=== PATIENT | female | born 1955 | race Caucasian/White ===

== ENCOUNTER 2019-12-29 03:22 | Outpatient (CLI) | payer MEDICARE, SELFPAY ==
[2019-12-29 20:03] LABS: SARS-CoV-2 RNA PCR Negative
== END 2019-12-29 03:23 | disposition home or self-care (01) ==
LOC: ANHCOVIDDT 03:22
PROVIDERS: PCP Family Medicine; Visit Provider Internal Medicine Gastroenterology
DX: Z01.812 Encounter for preprocedural laboratory examination (principal); Z20.828 Contact with and (suspected) exposure to other viral communicable diseases
CPT/HCPCS: 87635; C9803; U0003

== ENCOUNTER 2019-12-31 02:06 | Day surgery (SDC) | payer MEDICARE, SELFPAY ==
[2019-12-24 13:19] VITALS: BMI 22.2
[2019-12-31 07:47] VITALS: BP 142/70; PULSE 84; RESP 18; TEMP 36.9; O2SAT 100; BMI 22.2
[2019-12-31] MEDS: LACTATED RINGERS 1,000 ML 150 ML IV CONT (08:00)
--- NOTE | 2019-12-31 08:16 | WPDANESEPPF ---
Anes - Initial Pre Proc Eval Procedure: Operation Date: 12/31/19 08:30 Proposed Procedures p Esophagogastroduodenoscopy - Yoav Meraz DO Date/Time: 12/31/19 08:16 Surgeon: Yoav Meraz DO Pre Op Diagnosis: Upper Abdominal Pain Patient Data Age: 64 Gender: F Height: 5 ft 3 in Weight: 57 kg Last Vital Signs Temp 98.5 F 12/31/19 07:47 Pulse 84 12/31/19 07:47 Resp 18 12/31/19 07:47 BP 142/70 H 12/31/19 07:47 Pulse Ox 100 12/31/19 07:47 Allergies Allergy/AdvReac Type Severity Reaction Status Date / Time propoxyphene AdvReac Mild CAUSES Verified 12/31/19 07:44 UPSET STOMACH AND VOMITING Home Medications Medication Instructions Recorded Confirmed Type Vitamin D3 Complete 1 cap PO DAILY 12/24/19 12/24/19 History alprazolam 1 mg PO TID PRN 12/24/19 12/24/19 History ferrous sulfate 325 mg/kg PO DAILY 12/24/19 12/24/19 History lactobacillus combination no.8 1 cell PO DAILY 12/24/19 12/24/19 History [Adult Probiotic] levothyroxine 50 mcg PO DAILY 12/24/19 12/24/19 History pantoprazole 40 mg PO DAILY 12/24/19 12/24/19 History paroxetine HCl 40 mg PO DAILY 12/24/19 12/24/19 History vitamin B complex [B 1 tablet PO DAILY 12/24/19 12/24/19 History Complex-Vitamin B12] Patient hx anesthesia problems: none Family hx anesthesia problems: none PMFSH Past Medical History Medical History (Updated 12/31/19 @ 08:16 by Bj Oocnnor MD) Anxiety Depression Hypothyroid Family History Family History (Updated 11/04/15 @ 23:21 by DOCTOR UNKNOWN) Mother Patient's mother is in good health Social History Social History Smoking packs per day: 1 Smoking cigarettes per day: 20.0 Years smoked: 20 Smoking pack-years: 20.00 Smoking status: Former smoker Additional smoking assessment comments: quit in 1982 Alcohol intake: never Living arrangements: alone Gender identity (if verbalized by the patient): Female Spiritual care concerns: No Anes - Eval Final PreProcedure Day of Procedure 12/31/19 08:16 Patient weight: normal Heart: regular rate and rhythm Lungs: clear to auscultation Airway: Mallampati scale class II Neurological: alert and oriented Last oral intake: >/= 8 hours ASA classification: II Emergent: no Anesthetic plan: proceed Anesthesia type and monitoring: general GIVS and standard monitoring Informed Consent: The patient's anesthetic plan and its attendant risks and benefits were discussed with the patient/family/POA. Questions were solicited and answers provided to the satisfaction of the patient/family/POA.
--- NOTE | 2019-12-31 08:41 | PM.IMHP ---
H&P: HPI History of Present Illness Date/Time: 12/31/19 08:41 Chief complaint: Upper Abdominal Pain Narrative: Reason for visit EGD. Impression: This very pleasant lady with a history of abdominal pain. Underlying peptic ulcer disease should be excluded. She does have history of gastric ulcer disease. She does have history of reflux disease and has dysphagia to both solids and liquids. This may be secondary lying regular stricture. Esophageal dysmotility should be excluded. Anxiety. Reflux disease. Hypothyroidism. History of gastric ulcer disease. History: This very pleasant lady's being evaluated for diffuse abdominal pain. She has epigastric and diffuse abdominal pain. It always seems to hurt. Eating exacerbates the pain. She reports nausea , but no vomiting. She has dysphagia to both solids and liquids. she does have chronic constipation. Hematochezia, melena acholic stools overnight. She has a history of colon polyp in the questionable colon ulcer. Patient also reports a history of gastric ulcer disease. She is on pantoprazole twice a day without any improvement. The pain does awaken her at night and prevents her from sleeping. This very pleasant lady has chest pain atypical in nature. She has chronic back pain. She has very significant anxiety. Physical examination: General: very pleasant patient in no acute distress. HEENT: Head was normocephalic sclerae is clear mouth without masses neck was supple. Heart: Rate rhythm regular without S3 or S4. Lungs: CTA. Abdomen: Soft with no guarding or rigidity. Bowel sounds were active. Neurologic: Cranial nerves 2 through 12 intact. No focal defects. No clonus. Musculoskeletal system: Revealed no joint tenderness or swelling no muscle atrophy. Extremities: Reveal no significant edema. Skin: Warm and dry with normal turgor. Mental status: intact. Patient is alert and oriented. Review of Systems Review of Systems: All systems reviewed & are unremarkable except as noted in HPI and below [facility] Past Medical History Medical History (Updated 12/31/19 @ 08:41 by Yoav Meraz DO) Anxiety Cervical vertebral fusion Depression Hypothyroid Surgical History Surgical History (Updated 12/31/19 @ 08:41 by Yoav Meraz DO) History of esophagogastroduodenoscopy (EGD) History of hip surgery Hx of colonoscopy S/P rotator cuff repair Family History Family History (Updated 11/04/15 @ 23:21 by DOCTOR UNKNOWN) Mother Patient's mother is in good health Social History Social History Smoking packs per day: 1 Smoking cigarettes per day: 20.0 Years smoked: 20 Smoking pack-years: 20.00 Smoking status: Former smoker Additional smoking assessment comments: quit in 1982 Alcohol intake: never Living arrangements: alone Gender identity (if verbalized by the patient): Female Spiritual care concerns: No Meds Home Medications and Allergies Home Medications Medication Instructions Recorded Confirmed Type Vitamin D3 Complete 1 cap PO DAILY 12/24/19 12/24/19 History alprazolam 1 mg PO TID PRN 12/24/19 12/24/19 History ferrous sulfate 325 mg/kg PO DAILY 12/24/19 12/24/19 History lactobacillus combination no.8 1 cell PO DAILY 12/24/19 12/24/19 History [Adult Probiotic] levothyroxine 50 mcg PO DAILY 12/24/19 12/24/19 History pantoprazole 40 mg PO DAILY 12/24/19 12/24/19 History paroxetine HCl 40 mg PO DAILY 12/24/19 12/24/19 History vitamin B complex [B 1 tablet PO DAILY 12/24/19 12/24/19 History Complex-Vitamin B12] Allergies Allergy/AdvReac Type Severity Reaction Status Date / Time propoxyphene AdvReac Mild CAUSES Verified 12/31/19 07:44 UPSET STOMACH AND VOMITING Vital Signs Vital Signs - 24 hr 12/31/19 07:47 Temperature 36.9 C Pulse Rate 84 Respiratory Rate 18 Blood Pressure 142/70 H Pulse Oximetry 100
[2019-12-31 09:15] VITALS: BP 135/84; PULSE 89; RESP 25; O2SAT 100
[2019-12-31 09:25] VITALS: BP 155/86; PULSE 88; RESP 19; O2SAT 100
[2019-12-31 09:35] VITALS: BP 127/87; PULSE 72; RESP 27; O2SAT 99
== END 2019-12-31 09:44 | disposition home or self-care (01) ==
PROVIDERS: PCP Family Medicine; Visit Provider Internal Medicine Gastroenterology
PROC: 0DJ08ZZ Inspection of Upper Intestinal Tract, Via Natural or Artificial Opening Endoscopic (ICD-10-PCS; CPT 43235; principal; 2019-12-31 08:30)
DX: R10.10 Upper abdominal pain, unspecified (principal); R11.0 Nausea; K44.9 Diaphragmatic hernia without obstruction or gangrene; R13.10 Dysphagia, unspecified; K21.9 Gastro-esophageal reflux disease without esophagitis; Z87.11 Personal history of peptic ulcer disease; E03.9 Hypothyroidism, unspecified; F41.8 Other specified anxiety disorders; Z98.1 Arthrodesis status; Z87.891 Personal history of nicotine dependence
CPT/HCPCS: 43239; 43450; 87081; 88305; J2704; J7120

== ENCOUNTER 2020-02-11 07:59 | Outpatient (CLI) | payer MEDICARE, SELFPAY ==
--- NOTE | ~2020-02-11 | NM_ITS ---
EXAM: NM gastric emptying study DATE: 02/11/2020 12:35 INDICATION: Gastroparesis. Upper abdominal pain. TECHNIQUE: A gastric emptying study was performed using the methodology of Amanda GREGORY, et al. J Nucl Med 2007; 48:568-572. The patient was given a meal consisting of 2 scrambled eggs labeled with 1 mCi Tc-99m sulfur colloid, 2 slices of toast, two packages of jam, and approximately 120 mL of water. Si multaneous anterior and posterior 1-min images of the abdomen were obtained with the patient supine a t multiple time points over a total period of 4 hours. The geometric mean of anterior and posterior v iews was determined, and the percentage retention was calculated for each time point. COMPARISON: None. FINDINGS: Gastric retention of the radiotracer-labeled meal was 64%, 36%, and 4% at the 1-hour, 2-hour, and 4-h our time points, respectively. With this technique, apparent rapid gastric emptying is suggested by < 30% gastric retention at 1 hour. Delayed gastric emptying is defined by gastric retention of >90% at 1 hour, >60% retention at 2 hours, or >10% retention at 4 hours. IMPRESSION: 1. Normal gastric emptying. Reviewed, dictated and finalized at location A. O MASK PROCESSOR IMPRESSION: 1. Normal gastric emptying.
--- NOTE | ~2020-02-11 | CT_ITS ---
EXAMINATION: CT abdomen pelvis wo con EXAM DATE: 02/11/2020 12:35 INDICATION: Pain of upper abdomen . TECHNIQUE: Spiral CT of the abdomen and pelvis was performed without contrast. Axial, coronal and s agittal images were reviewed. The dose-length product (DLP) for this examination was 204.39 mGy-cm. The exposure was tailored according to patient size (auto mA exposure control), and iterative recons truction (ASIR) was used as additional dose reduction technique. Comparison is made to prior examinat ion from 08/04/2018. FINDINGS: The liver, spleen, adrenal glands and pancreas are unremarkable. Gallbladder is unremarkab le. No biliary obstruction. There is no nephrolithiasis or hydronephrosis. The uterus is unremark able. The bladder is unremarkable. There is no retroperitoneal or pelvic lymphadenopathy. The appendix is normal. The stomach and small bowel are unremarkable. There is moderate amount of c olonic stool. No free intraperitoneal gas. The heart is normal in size. There are no pericardial or pleural effusions. The lung bases are unremarkable. Mild thoracolumbar dextrocurvature. IMPRESSION: No acute intra-abdominal findings. Reviewed, dictated and finalized at location B. RATING MACHINE TENDER
== END 2020-02-11 08:00 | disposition home or self-care (01) ==
PROVIDERS: PCP Family Medicine; Visit Provider Internal Medicine Gastroenterology
DX: R10.10 Upper abdominal pain, unspecified (principal)
CPT/HCPCS: 74176; 78264; A9541

== ENCOUNTER 2020-05-12 11:22 | Emergency (ER) | payer MEDICARE, SELFPAY ==
--- NOTE | ~2020-05-12 | CT_ITS ---
EXAMINATION: CT abdomen pelvis w con DATE: 05/12/2020 14:26 INDICATION: Abdominal pain. Blood in stool. TECHNIQUE: Computed tomography (CT) of the abdomen and pelvis was performed with 100 mL Omnipaque 350 intravenous contrast. Automated exposure control and iterative reconstruction technique were employe d. The dose-length product was 245.61 mGy-cm. COMPARISON: CT abdomen and pelvis 02/11/2020 FINDINGS: The visualized portions of the lung bases demonstrate mild atelectasis. No pleural effusion . The heart size is normal. No pericardial effusion. There are bilateral breast implants. There is a 6 mm cyst in the liver. The gallbladder, spleen, pancreas, and adrenal glands are normal. There are c ysts in the kidneys measuring up to 12 mm on the left. There are no dilated loops of bowel. The appen genevieve is normal. There is wall thickening of the splenic flexure of the colon. There is mild stenosis o f celiac axis. There is no significant stenosis of superior mesenteric artery or inferior mesenteric artery. There are no pathologically enlarged lymph nodes. There is no free intraperitoneal fluid. The re is mild lumbar spondylosis. IMPRESSION: 1. Wall thickening of the splenic flexure of the colon, consistent with colitis. The differential benigno gnosis includes infectious colitis and ischemic colitis (such as from a hypotensive episode). Reviewed, dictated and finalized at location A. R HOUSE CONTROL ROOM OPERATOR IMPRESSION: 1. Wall thickening of the splenic flexure of the colon, consistent with colitis . The differential diagnosis includes infectious colitis and ischemic colitis ( such as from a hypotensive episode).
[2020-05-12 11:41] VITALS: BP 127/67; PULSE 97; RESP 18; TEMP 36.9; O2SAT 97
[2020-05-12 11:56] LABS: Basophils Percent Auto 0.4 % (0.2-1.2); Eosinophils Absolute Auto 0.1 K/mm3 (0-0.3); Eosinophils Percent Auto 1.2 % (0-4.4); Hematocrit 43.5 % (37.0-47.0); Immature Granulocyte Absolute 0.01 K/mm3 (0.00-0.031); Immature Granulocyte Percent A 0.1 % (0-0.5); Lymphocytes Absolute Auto 2.05 K/mm3 (0.9-3.2); Lymphocytes Percent Auto 28.3 % (18.3-44.2); Mean Corpuscular HGB Conc 32.2 g/dl (32-36); Mean Corpuscular Hemoglobin 30.4 pg (26-34); Mean Corpuscular Volume 94.4 fl (80-100); Mean Platelet Volume 8.7 fl (7.4-10.4); Monocytes Absolute Auto 0.6 K/mm3 (0.1-0.6); Neutrophils Absolute Auto 4.5 K/mm3 (1.3-6.7); Platelet Count Result 323 k/mm3 (150-375); Red Blood Count 4.61 M/mm3 (4.2-5.4); Red Cell Distribution Width 12.1 % (11.5-14.5); White Blood Count 7.3 K/mm3 (4.5-10.0)
[2020-05-12 12:10] LABS: Alanine Aminotransferase 22 U/L (4-35); Albumin Level 4.2 g/dL (3.5-5.1); Alkaline Phosphatase 144 U/L (38-126); Anion Gap 4 mmol/L (8-16); Aspartate Amino Transferase 28 U/L (14-36); Bilirubin,Total 0.8 mg/dL (0.2-1.3); Blood Urea Nitrogen 9 mg/dL (7-17); Calcium 9.3 mg/dL (8.4-10.2); Carbon Dioxide 30 mmol/L (22-30); Chloride 100 mmol/L (98-107); Estimated CRCL calculation 45 ml/min; Estimated Glomerular Filt Rate > 60; Glucose 88 mg/dL (65-105); Lipase 42 U/L (23-300); Potassium 3.6 mmol/L (3.4-5.0); Sodium 134 mmol/L (137-145)
[2020-05-12 12:56] VITALS: BP 136/68; PULSE 74; RESP 16; O2SAT 100
[2020-05-12 13:06] LABS: Add Urine Microscopic? YES; Appearance Urine Clear (Clear); Bilirubin Urine Negative (Negative); Blood Urine Negative (Negative); Color Urine Yellow (Yellow); Glucose Urine UA Negative (Negative); Ketones Urine 1+ mg/dL (Negative); Leukocyte Esterase Ur Negative LEU/UL (Negative); Mucus Urine Rare /lpf; Nitrate Urine Negative (Negative); Protein Urine 1+ mg/dL (Negative); RBC Urine 0-2 /hpf (0-2); Specific Grav Ur 1.032 (1.001-1.035); Squamous Epithelial Cell Urine Few /hpf (Few); Urobilinogen Urine Negative mg/dL (<2.0); WBC Urine 0-3 /hpf
--- NOTE | 2020-05-12 13:38 | ED.HA ---
HPI - Headache General Chief Complaint: Headache Stated Complaint: rectal bleeding,GREGORY, ABD PAIN Time Seen by Provider: 05/12/20 13:04 Source: patient Mode of arrival: ambulatory Limitations: no limitations History of Present Illness HPI Narrative: A 64-year-old female comes into the emergency department with complaints of a headache. Patient states that she has had this headache for a while. She notes that this is chronic in nature for her and unchanged from previous. Patient had an accident at work and as a result had to have multiple neck surgeries. She stated that the surgery was relieved her pain for a while but eventually did come back and seems to be getting worse. She has been taking Tylenol at home with no relief. Patient states she was instructed to stay away from NSAIDs as she has had a history of bleeding ulcers in the past. Patient second main complaint includes abdominal pain. She does note an episode of bloody stools on Saturday. She notes that this had resolved by Saturday morning. Patient denies any further bloody stools but does endorse generalized abdominal pain. Related Data Home Medications Medication Instructions Recorded Confirmed Vitamin D3 Complete 1 cap PO DAILY 12/24/19 05/12/20 alprazolam 1 mg PO TID PRN 12/24/19 05/12/20 ferrous sulfate 325 mg/kg PO DAILY 12/24/19 05/12/20 lactobacillus combination no.8 1 cell PO DAILY 12/24/19 05/12/20 [Adult Probiotic] levothyroxine 50 mcg PO DAILY 12/24/19 05/12/20 pantoprazole 40 mg PO DAILY 12/24/19 05/12/20 paroxetine HCl 40 mg PO DAILY 12/24/19 05/12/20 vitamin B complex [B 1 tablet PO DAILY 12/24/19 05/12/20 Complex-Vitamin B12] Allergies Allergy/AdvReac Type Severity Reaction Status Date / Time propoxyphene AdvReac Mild CAUSES Verified 05/12/20 13:53 UPSET STOMACH AND VOMITING Review of Systems Review of Systems: Narrative: CONSTITUTIONAL: Denies fever, chills, or sweats. EYES: Denies visual changes, redness, or discharge. ENT: Denies rhinorrhea, congestion, sore throat, or otalgia. CARDIOVASCULAR: Denies chest pain, palpitations, or edema. RESPIRATORY: Denies cough or dyspnea. GASTROINTESTINAL: Endorses nausea associated with a headache, generalized abdominal pain and an episode of bloody stools 2 days ago. GENITOURINARY: Denies dysuria or hematuria. SKIN: Denies rash or itching. MUSCULOSKELETAL: Denies back pain, joint pain, or myalgia. NEUROLOGIC: Denies numbness, dizziness, or weakness. Endorses headache PSYCHIATRIC: Denies anxiety or depression. [facility] Past Medical History Medical History Anxiety Cervical vertebral fusion Depression Hypothyroid Surgical History Surgical History History of esophagogastroduodenoscopy (EGD) History of hip surgery Hx of colonoscopy S/P rotator cuff repair Family History Family History Mother Patient's mother is in good health Social History Social History Smoking packs per day: 1 Smoking cigarettes per day: 20.0 Years smoked: 20 Smoking pack-years: 20.00 Smoking status: Former smoker Additional smoking assessment comments: quit in 1982 Alcohol intake: never Gender identity (if verbalized by the patient): Female Spiritual care concerns: No Exam Narrative: Exam Narrative: GENERAL: Well-appearing, well-nourished, and in no acute distress. HEAD: Normocephalic, atraumatic. EYES: PERRLA and EOMI. ENT: Nares clear, no rhinorrhea or epistaxis. Mucous membranes moist. NECK: Supple. No adenopathy or masses. No carotid bruits or JVD CHEST: Clear to auscultation. No respiratory distress. No wheezes rales or rhonchi HEART: Regular rate and rhythm. No murmur heard. Normal peripheral pulses. ABDOMEN: Soft but with generalized tenderness to palpation;
[2020-05-12] MEDS: ONDANSETRON INJ 4 MG/2 ML VIAL IV PUSH (13:57)
[2020-05-12] MEDS: diphenhydrAMINE HCl INJ 50 MG/ML VIAL 25 MG IV PUSH (13:58)
[2020-05-12] MEDS: KETOROLAC 15 MG/ML VIAL (*BKC) IV PUSH (14:00)
[2020-05-12 14:01] VITALS: BP 126/91; PULSE 77; RESP 14; O2SAT 98
[2020-05-12] MEDS: PROCHLORPERAZINE EDISYLATE 10 MG/2 ML VIAL 5 MG IV PUSH (14:01)
[2020-05-12 15:20] VITALS: BP 104/54; PULSE 78; RESP 10; O2SAT 96
--- NOTE | 2020-05-16 14:11 | PC.NURSE ---
pt lost rx in the wind . this rn spoke with everton to give verbal script for the discharge medication augment 875mg #20 with 0 RF, Clement kendrick
== END 2020-05-12 15:21 | disposition home or self-care (01) ==
PROVIDERS: Emergency Medicine; Emergency Provider Emergency Medicine; PCP Family Medicine
DX: G44.319 Acute post-traumatic headache, not intractable (principal); K52.9 Noninfective gastroenteritis and colitis, unspecified; F41.9 Anxiety disorder, unspecified; E03.9 Hypothyroidism, unspecified; F32.9 Major depressive disorder, single episode, unspecified; Z87.891 Personal history of nicotine dependence
CPT/HCPCS: 36415; 74177; 80053; 81001; 83690; 85025; 86850; 86900; 86901; 96374; 96375; 99284; J0780; J1200; J1885; J2405; Q9967

== ENCOUNTER 2020-06-15 15:38 | Outpatient (CLI) | payer MEDICARE, SELFPAY ==
--- NOTE | ~2020-06-15 | MR_ITS ---
EXAMINATION: MR brain/brain stem wo/w con DATE: 06/15/2020 16:43 INDICATION: Migraine headache without aura. TECHNIQUE: Magnetic resonance imaging (MRI) of the brain and brainstem was performed without and with 10 mL MultiHance intravenous contrast. Sequences included sagittal and axial T1-weighted FSE, axial diffusion-weighted FS EPI, axial T2*-weighted GRE, axial T2-weighted FLAIR Propeller, and axial T2-we ighted Propeller. Postcontrast sequences included axial and coronal T1-weighted FSE. Apparent diffusi on coefficient (ADC) maps were created. COMPARISON: Head CT 02/09/2008 FINDINGS: There are scattered areas of nonspecific increased T2-weighted signal intensity in the cere bral white matter, which is within normal limits for the patient's age. There is no intracranial hemo rrhage, acute infarction, or abnormal intracranial mass lesion. The ventricles are normal in size. Th e paranasal sinuses are clear. The orbits are normal. The mastoid air cells are normal. IMPRESSION: 1. Normal brain. Reviewed, dictated and finalized at location A. ERCIAL MARKETING SPECIALIST IMPRESSION: 1. Normal brain.
[2020-06-15 16:27] LABS: Estimated Glomerular Filt Rate > 60
== END 2020-06-15 15:39 | disposition home or self-care (01) ==
PROVIDERS: PCP Family Medicine; Visit Provider Family Medicine
DX: G43.909 Migraine, unspecified, not intractable, without status migrainosus (principal)
CPT/HCPCS: 70553; A9577

== ENCOUNTER 2020-07-08 08:54 | Outpatient (CLI) | payer MEDICARE, SELFPAY ==
--- NOTE | ~2020-07-08 | DEXA_ITS ---
Bone Density Report Name: Ngozi Tyler Age: 64 Sex: Female Ethnicity: White Date of : 1955 Indication: osteopenia; postmenopausal Referring Provider: NATHAN, YANDEL Villegas Study: Bone densitometry was performed. Exam Date: July 08, 2020 Accession number: [id number] Bone Density: Region BMD T-score Z-score Classification AP Spine (L1-L4) 0.717 -3.0 -1.2 Osteoporosis Femoral Neck (Left) 0.633 -1.9 -0.4 Osteopenia Total Hip (Left) 0.720 -1.8 -0.6 Osteopenia Total Hip Bilateral Avg 0.709 -1.9 -0.7 Osteopenia Femoral Neck (Right) 0.579 -2.4 -0.9 Osteopenia Total Hip (Right) 0.696 -2.0 -0.8 Osteopenia World Health Organization criteria for BMD impression classify patients as: Normal (T-score at or above -1.0), Osteopenia (T-score between -1.0 and -2.5), or Osteoporosis (T-score at or below -2.5). 10-year Fracture Risk: FRAX not reported because: Some T-score for Spine Total or Hip Total or Femoral Neck at or below -2.5 Previous Exams: Region Exam Age BMD T-score BMD Change BMD Change Date g/cm2 vs Baseline vs Previous AP Spine(L1-L4) 07/08/2020 64 0.717 -3.0 -0.098(-12.1%) -0.098(-12.1%) 04/21/2008 52 0.815 -2.1 Total Hip(Left) 07/08/2020 64 0.720 -1.8 -0.020(-2.7%)# -0.020(-2.7%)# 04/21/2008 52 0.740 -1.7 Total Hip(Right) 07/08/2020 64 0.696 -2.0 -0.030(-4.1%)# -0.030(-4.1%)# 04/21/2008 52 0.725 -1.8 *Denotes significance at 95% confidence level, LSC for AP Spine = 0.022 g/cm2, LSC for Total Hip = 0.027 g/cm2 Clinical Information Provided by Patient: Has used the following medications: Vitamin D Patient maximum height was 63.5 Menopause Age: 46 Drinks caffeinated beverages Onset of menses at age 11 Number of children 2 Impression: The patient has osteoporosis, based on the Total Spine T-score. No significant bone loss was observed. Discussion: INCREASED RISK OF FRACTURE. BONE DENSITY IS UNDESIRABLY LOW AT ONE OR MORE SKELETAL SITES, CONSISTENT WITH POSTMENOPAUSAL OSTEOPOROSIS. This patient's lowest T-score meets the World Health Organization's (WHO) criteria for osteoporosis at one or more sites (T-score -2.5 or below). In untreated patients, the risk of osteoporotic fracture increases approximately two-fold for each 1.0 SD decrease in T-score. Low bone density is not the only risk factor for fracture; also consider factors such as patient's age, frailty or poor health, risk of falling, risk of injury, previous osteoporotic fract
== END 2020-07-08 08:55 | disposition home or self-care (01) ==
LOC: ANHIMG 08:58
PROVIDERS: PCP Family Medicine; Visit Provider Family Medicine
DX: Z78.0 Asymptomatic menopausal state (principal); M85.89 Other specified disorders of bone density and structure, multiple sites; M81.0 Age-related osteoporosis without current pathological fracture
CPT/HCPCS: 77080

== ENCOUNTER → 2021-06-17 00:24 | Outpatient (CLI) | payer MEDICARE, SELFPAY ==
[2021-06-17 12:26] LABS: SARS-CoV-2 RNA PCR Negative
== END ==
PROVIDERS: PCP Family Medicine; Visit Provider Internal Medicine Gastroenterology
DX: Z01.812 Encounter for preprocedural laboratory examination (principal); Z20.822 Contact with and (suspected) exposure to COVID-19
CPT/HCPCS: C9803; U0003; U0005

== ENCOUNTER 2021-06-20 00:50 | Day surgery (SDC) | payer MEDICARE, SELFPAY ==
[2021-06-16 13:01] VITALS: BMI 22.1
[2021-06-20 09:55] VITALS: BP 141/88; PULSE 81; RESP 16; TEMP 36.8; O2SAT 98
[2021-06-20] MEDS: LACTATED RINGERS 1,000 ML 150 ML IV CONT (09:58)
--- NOTE | 2021-06-20 10:36 | WPDHPUPDATE1 ---
History and Physical Update Update Date/Time: 06/20/21 10:36 History and Physical has been reviewed, including an updated exam of the patient. There are NO changes in the patient's condition. Risks, benefits, and alternatives have been discussed and questions answered. Patient agrees to proceed with procedure.
--- NOTE | 2021-06-20 10:37 | P.PNAN_ITS ---
Anes - Initial Pre Proc Eval Procedure: Operation Date: 06/20/21 11:00 Proposed Procedures p Esophagogastroduodenoscopy - Herber Villegas MD Date/Time: 06/20/21 10:37 Surgeon: Herber Villegas MD Pre Op Diagnosis: Epigastric pain Patient Data Age: 65 Gender: F Height: 1.6 m Weight: 57.4 kg Last Vital Signs Temp 98.2 F 06/20/21 09:55 Pulse 81 06/20/21 09:55 Resp 16 06/20/21 09:55 BP 141/88 H 06/20/21 09:55 Pulse Ox 98 06/20/21 09:55 Allergies Allergy/AdvReac Type Severity Reaction Status Date / Time No Known Drug Allergies Allergy Other Verified 06/20/21 09:53 Home Medications Medication Instructions Recorded Confirmed Type Vitamin D3 Complete 1 cap PO DAILY 12/24/19 06/20/21 History levothyroxine 50 mcg PO DAILY 12/24/19 06/20/21 History paroxetine HCl 40 mg PO DAILY 12/24/19 06/20/21 History vitamin B complex [B 1 tablet PO DAILY 12/24/19 06/20/21 History Complex-Vitamin B12] omeprazole 20 mg tablet,delayed 20 mg PO DAILY #30 tablet 06/15/21 06/20/21 Rx release alprazolam 1 mg PO TID PRN 06/20/21 06/20/21 History Patient hx anesthesia problems: none Family hx anesthesia problems: none Results Review: All pre-operative results and documents have been reviewed as part of the pre-operative evaluation. COUNTS INCLUDE 234 BEDS AT THE [facility] Past Medical History Medical History (Updated 06/15/21 @ 13:45 by Herber Villegas MD) Anxiety Cervical vertebral fusion Depression Dysphagia Epigastric pain Hypothyroid Nausea Surgical History Surgical History History of esophagogastroduodenoscopy (EGD) History of hip surgery Hx of colonoscopy S/P rotator cuff repair Family History Family History Mother Patient's mother is in good health Social History Social History (Reviewed 06/15/21 @ 13:21 by JOSELYN Degroot Smoking packs per day: 1 Smoking cigarettes per day: 20.0 Years smoked: 20 Smoking pack-years: 20.00 Smoking status: Never smoker Additional smoking assessment comments: quit in 1982 Alcohol intake: never Substance use: never Substance use type: does not use Living arrangements: alone Gender identity (if verbalized by the patient): Female Spiritual care concerns: No Anes - Eval Final PreProcedure Day of Procedure 06/20/21 10:37 Patient weight: normal Heart: regular rate and rhythm Lungs: clear to auscultation Airway: Mallampati scale class II Neurological: alert and oriented Last oral intake: >/= 8 hours ASA classification: II Emergent: no Anesthetic plan: proceed Anesthesia type and monitoring: general GIVS and standard monitoring Results Review: All pre-operative results and documents have been reviewed as part of the pre-operative evaluation. Informed Consent: The patient's anesthetic plan and its attendant risks and benefits were discussed with the patient/family/POA. Questions were solicited and answers provided to the satisfaction of the patient/family/POA.
[2021-06-20 10:51] VITALS: BP 131/76; PULSE 79; RESP 15; O2SAT 93
[2021-06-20 11:01] VITALS: BP 131/76; PULSE 79; RESP 15; O2SAT 93
[2021-06-20 11:11] VITALS: BP 156/97; PULSE 76; RESP 20; O2SAT 100
== END 2021-06-20 11:28 | disposition home or self-care (01) ==
PROVIDERS: PCP Family Medicine; Visit Provider Internal Medicine Gastroenterology
PROC: 0DJ08ZZ Inspection of Upper Intestinal Tract, Via Natural or Artificial Opening Endoscopic (ICD-10-PCS; CPT 43235; principal; 2021-06-20 11:00)
DX: K21.9 Gastro-esophageal reflux disease without esophagitis (principal); K44.9 Diaphragmatic hernia without obstruction or gangrene; K29.50 Unspecified chronic gastritis without bleeding; E03.9 Hypothyroidism, unspecified; F41.8 Other specified anxiety disorders; Z98.1 Arthrodesis status; Z87.891 Personal history of nicotine dependence
CPT/HCPCS: 43239; 88305; C9803; J2704; J7120; U0003; U0005

== ENCOUNTER 2021-12-19 09:03 | Outpatient (CLI) | payer MEDICARE, SELFPAY ==
--- NOTE | ~2021-12-19 | NM_ITS ---
EXAM: NM gastric emptying study DATE: 12/19/2021 13:41 INDICATION: Nausea. TECHNIQUE: A gastric emptying study was performed using the methodology of Amanda GREGORY, et al. J Nucl Med 2007; 48:568-572. The patient was given a meal consisting of 2 scrambled eggs labeled with 1.0 m Ci Tc-99m sulfur colloid, 2 slices of toast, two packages of jam, and approximately 120 mL of water. Simultaneous anterior and posterior 1-min images of the abdomen were obtained with the patient supine at multiple time points over a total period of 4 hours. The geometric mean of anterior and posterior views was determined, and the percentage retention was calculated for each time point. COMPARISON: CT abdomen and pelvis 05/12/2020, gastric emptying study 02/11/2020 FINDINGS: Gastric retention of the radiotracer-labeled meal was 62%, 39%, and 8% at the 1-hour, 2-ho ur, and 4-hour time points, respectively. With this technique, apparent rapid gastric emptying is sug gested by <30% gastric retention at 1 hour. Delayed gastric emptying is defined by gastric retention of >90% at 1 hour, >60% retention at 2 hours, or >10% retention at 4 hours. IMPRESSION: 1. Normal gastric emptying. Reviewed, dictated and finalized at location A. IMPRESSION: 1. Normal gastric emptying.
== END 2021-12-19 09:04 | disposition home or self-care (01) ==
PROVIDERS: PCP Family Medicine; Visit Provider Internal Medicine Gastroenterology
DX: R11.0 Nausea (principal); R10.13 Epigastric pain
CPT/HCPCS: 78264; A9541

== ENCOUNTER 2023-08-01 16:08 | Emergency (ER) | payer MEDICARE, SELFPAY ==
[2023-08-01] VITALS (10 sets, daily range): BP systolic 121–150; BP diastolic 76–84; PULSE 64–79; RESP 13–23; TEMP 36.6; O2SAT 98–100
--- NOTE | ~2023-08-01 | CT_ITS ---
EXAMINATION: CT abdomen pelvis w con DATE: 08/01/2023 19:36 INDICATION: Abdominal pain. Rectal bleeding. TECHNIQUE: Computed tomography (CT) of the abdomen and pelvis was performed with 100 mL Omnipaque 350 intravenous contrast. Automated exposure control and iterative reconstruction technique were employe d. The dose-length product was 216.93 mGy-cm. COMPARISON: CT abdomen and pelvis 05/12/2020 FINDINGS: The visualized portions of the lung bases demonstrate mild atelectasis. No pleural effusion . Breast implants are noted. The heart size is normal. No pericardial effusion. There is a small slid ing hiatal hernia. There is an 8 mm cyst in the liver. The gallbladder, spleen, pancreas, and adrenal glands are normal. There are cysts in the kidneys measuring up to 6 mm on the left. There are no dil ated loops of bowel. The appendix is normal. There is an umbilical hernia containing fat. There are n o pathologically enlarged lymph nodes. There is no free intraperitoneal fluid. There is mild lumbar s pondylosis. IMPRESSION: 1. Small sliding hiatal hernia. Reviewed, dictated and finalized at location E.
[2023-08-01 17:00] LABS: Basophils Absolute Auto 0.1 K/mm3 (0.0-0.1); Basophils Percent Auto 0.7 % (0.2-1.2); Eosinophils Absolute Auto 0.2 K/mm3 (0-0.3); Eosinophils Percent Auto 2.8 % (0-4.4); Hematocrit 46.2 % (37.0-47.0); Hemoglobin 14.5 g/dL (12.0-15.0); Immature Granulocyte Absolute 0.01 K/mm3 (0.00-0.031); Immature Granulocyte Percent A 0.1 % (0-0.5); Lymphocytes Absolute Auto 2.49 K/mm3 (0.9-3.2); Lymphocytes Percent Auto 33.4 % (18.3-44.2); Mean Corpuscular HGB Conc 31.4 g/dl (32-36); Mean Corpuscular Volume 92.4 fl (80-100); Mean Platelet Volume 9.5 fl (7.4-10.4); Monocytes Absolute Auto 0.6 K/mm3 (0.1-0.6); Monocytes Percent Auto 8.3 % (2.6-8.5); Neutrophils Absolute Auto 4.1 K/mm3 (1.3-6.7); Neutrophils Percent Auto 54.7 % (45.5-73.1); Platelet Count Result 390 k/mm3 (150-375); Red Cell Distribution Width 13.6 % (11.5-14.5); White Blood Count 7.5 K/mm3 (4.5-10.0)
[2023-08-01 17:25] LABS: INR 0.9; Partial Thromboplastin Time 26.3 Seconds (22.3-36.8); Prothrombin Time 12.2 Seconds (11.1-14.7)
[2023-08-01 17:36] LABS: Alanine Aminotransferase 21 U/L (6-35); Albumin Level 4.8 g/dL (3.5-5.1); Alkaline Phosphatase 91 U/L (38-126); Anion Gap 8 mmol/L (4-12); Aspartate Amino Transferase 31 U/L (14-36); Bilirubin,Total 0.7 mg/dL (0.2-1.3); Blood Urea Nitrogen 15 mg/dL (7-17); Calcium 10.1 mg/dL (8.4-10.2); Carbon Dioxide 26 mmol/L (22-30); Chloride 105 mmol/L (98-107); Estimated CRCL calculation 48 ml/min; Estimated Glomerular Filt Rate > 60; Glucose 90 mg/dL (65-110); Potassium 3.5 mmol/L (3.4-5.0); Sodium 139 mmol/L (137-145)
--- NOTE | 2023-08-01 18:50 | ED.GIBLEED ---
HPI - GI Bleed General Chief complaint: GI Bleed Stated complaint: abdominal pain-rectal bleeding Time Seen by Provider: 08/01/23 17:51 History of Present Illness HPI Narrative: Patient is a 59-year-old female with known history of gastric ulcer here today with abdominal pain and bright red blood per rectum. She states that for 4-5 months she has been having worsening epigastric and left upper quadrant abdominal pain. She had a colonoscopy and endoscopy performed on May 13 at [facility]. She was identified to have a bleeding ulcer at that time, not discharged on any medications to treat that ulcer. She notes she has had continued pain since then. She has been following with her primary care doctor. Today the pain seemed to be worsened and she has been experiencing some bright red blood per rectum. She notes that is a small amount that is seen on her paper when she wipes. She denies any rectal pain or bleeding. The pain today is now more diffuse throughout her abdomen and located in the left upper quadrant as well as the right upper quadrant and left lower quadrant. It is cramping in nature and waxes and wanes in severity. She has had a decreased appetite and p.o. intake for the last 4 months since symptoms 1st began. No fever or chills, she has not been lightheaded. No shortness of breath. Related Data Home Medications Medication Instructions Recorded Confirmed vitamin B complex (B 1 tablet PO DAILY 12/24/19 06/04/23 Complex-Vitamin B12 tablet) alprazolam 1 mg tablet 1 mg PO TID PRN Anxiety 06/20/21 06/04/23 paroxetine HCl 20 mg tablet (Paxil) 20 mg PO BID 12/07/21 06/04/23 cholecalciferol (vitamin D3) 25 25 mcg PO DAILY 02/19/23 06/04/23 mcg (1,000 unit) capsule ferrous sulfate 325 mg (65 mg 325 mg PO DAILY 04/30/23 06/04/23 iron) tablet (Feosol) Allergies Allergy/AdvReac Type Severity Reaction Status Date / Time propoxyphene Allergy Severe Nausea Verified 08/01/23 16:09 [From Alpa-N 100] Review of Systems Review of Systems: All systems reviewed & are unremarkable except as noted in HPI and below PMFSH Past Medical History Medical History Abnormal Pap smear of cervix hx of abnormal paps at younger age Anxiety Bleeding ulcer Cervical vertebral fusion Depression Dysphagia Encounter for screening examination for sexually transmitted disease Epigastric pain Gastritis Hiatal hernia History of colitis Hypothyroid Nausea Osteopenia Screening mammogram, encounter for Surgical History Surgical History H/O total knee replacement (03/08/21) right knee History of arthroscopy of knee (11/19/19) w/medial meniscectomy History of breast augmentation (~2002) History of elbow surgery bilateral tennis elbow surgery History of esophagogastroduodenoscopy (EGD) (06/20/21) gastritis, hiatal hernia History of fusion of cervical spine 2005 & 2016 History of gynecologic surgery (08/02/11) vulvar bx--lichen scierosus et atrophicus History of hip surgery (~2017) History of shoulder surgery (03/15/15) (R) shoulder History of shoulder surgery (L) shoulder Hx of colonoscopy Hx of LASIK (12/12/20) S/P rotator cuff repair (~2015) Family History Family History Mother Hypertension Heart disease Osteoporosis Cerebrovascular accident Dementia Father Lung tumor Alcoholism Malignant brain tumor Sibling Diabetes mellitus brother sister Alcoholism brother Carcinoma of colon brother Malignant neoplasm of liver brother Social History Social History Smoking packs per day: 1 Smoking cigarettes per day: 20.0 Years smoked: 20 Smoking pack-years: 20.00 Smoking status: Former smoker Alcohol intake: never
[2023-08-01] MEDS: PANTOPRAZOLE SODIUM IV 40 MG VIAL IV PUSH (19:03)
[2023-08-01] MEDS: ONDANSETRON INJ 4 MG/2 ML VIAL IV PUSH (19:03)
[2023-08-01] MEDS: MORPHINE SULFATE (*CRX) 4 MG/ML INJ IV PUSH (19:04)
[2023-08-01] MEDS: LACTATED RINGERS 1,000 ML 999 ML IV CONT (19:07)
[2023-08-01] MEDS: DICYCLOMINE HCL INJ 20 MG/2 ML VIAL IM (20:38)
[2023-08-01] MEDS: BELLADONNA ALK/PHENOB ELIX 10 ML, MAG HYDROX/ALUMINUM HYD/SIMETH 30 ML, LIDOCAINE HCL 2... PO (20:38)
== END 2023-08-01 20:46 | disposition home or self-care (01) ==
PROVIDERS: Student in an Organized Health Care Education/Training Program; Emergency Provider Student in an Organized Health Care Education/Training Program; PCP Family Medicine
DX: K62.5 Hemorrhage of anus and rectum (principal); R10.13 Epigastric pain; E03.9 Hypothyroidism, unspecified; M85.80 Other specified disorders of bone density and structure, unspecified site; F41.9 Anxiety disorder, unspecified; F32.A Depression, unspecified; Z96.651 Presence of right artificial knee joint; Z98.1 Arthrodesis status; Z87.891 Personal history of nicotine dependence
CPT/HCPCS: 36415; 74177; 80053; 85025; 85610; 85730; 86850; 86900; 86901; 96361; 96372; 96374; 96375; 99284; A9270; C9113; J0500; J2270; J2405; J7120; Q9967

== ENCOUNTER 2023-11-21 08:44 | Outpatient (CLI) | payer MEDICARE, SELFPAY ==
--- NOTE | ~2023-11-21 | NM_ITS ---
EXAMINATION: NM bone scan whole body DATE: 11/21/2023 13:02 INDICATION: Right knee pain TECHNIQUE: 24.5 mCi Tc-99m HDP was administered intravenously. Delayed whole-body scintigrams were o btained. COMPARISON: Right knee radiographs dated 11/14/[address] abdomen and pelvis dated 08/01/2023 FINDINGS: Mild uptake which is within normal limits along the margins of a photopenic defect corresponding to a right total knee arthroplasty. There is likely degenerative mild joint centered uptake at the bilate ral shoulders, sternoclavicular joints, right mid cervical facet joints, bilateral L4-L5 facet joints , at all 3 compartments of the left knee and at the bilateral first metatarsophalangeal joints. Addit ional likely degenerative disc centered uptake at the lower cervical spine. Mild likely dental diseas e related uptake at the right side of the mandible and mild likely sinus disease related uptake in th e region of the right sphenoid sinus. Mild uptake at the right greater trochanter associated with a s mall enthesophyte. No other atypical foci of abnormal bone uptake to suggest metastatic disease. IMPRESSION: 1. Typical pattern of mild uptake along the margins of a right total knee arthroplasty. No abnormal i ncreased uptake to suggest loosening or fracture. Reviewed, dictated and finalized at location A. IMPRESSION: 1. Typical pattern of mild uptake along the margins of a right total knee arthr oplasty. No abnormal increased uptake to suggest loosening or fracture.
== END 2023-11-21 08:45 | disposition home or self-care (01) ==
PROVIDERS: PCP Nurse Practitioner Family; Visit Provider Orthopaedic Surgery
DX: G89.29 Other chronic pain (principal); M25.561 Pain in right knee; Z96.651 Presence of right artificial knee joint
CPT/HCPCS: 78306; A9503

== ENCOUNTER 2024-07-19 09:02 | Inpatient (IN) | payer MEDICARE, SELFPAY ==
[2024-07-19] VITALS (17 sets, daily range): BP systolic 138–183; BP diastolic 81–132; PULSE 64–79; RESP 12–23; TEMP 36.8–37.1; O2SAT 92–99; BMI 22.1
--- NOTE | ~2024-07-19 | XR_ITS ---
SINGLE AP VIEW PELVIS Ordering provider: Frankie Holcomb MD History: . Launched off . Comparison: June 21, 2006 FINDINGS: BONES: No acute fracture or dislocation. HIP JOINT SPACES: Bilateral hip severe osteoarthritic changes. SACROILIAC JOINT SPACES/LUMBAR SPINE: The sacroiliac joint spaces are normal. Mild degenerative rand es of the visualized lower lumbar spine. PUBIC SYMPHYSIS: Normal. SOFT TISSUES: Normal. IMPRESSION: No acute osseous abnormality pelvis. Severe bilateral hip osteoarthritic changes. XR pelvis 1-2V, XR chest 1V portable Ordering provider: Frankie Holcomb MD History: 68 years Female with . Launched off . Comparison: None. FINDINGS: MEDIASTINUM: The cardiac silhouette is slightly enlarged. LUNGS: No infiltrates, effusions or pneumothorax. Prominent bronchovascular markings in the lower lob es. Early pneumonia is noted excluded. Follow-up advised. OTHER: No free air under the diaphragm. IMPRESSION: Prominent markings in the lower lobes. Early pneumonia is not excluded. Follow-up advised. Reviewed, dictated and finalized at location A. IMPRESSION: No acute osseous abnormality pelvis. Severe bilateral hip osteoarthritic changes. XR pelvis 1-2V, XR chest 1V portable Ordering provider: Frankie Holcomb MD History: 68 years Female with . Launched off . Comparison: None. FINDINGS: MEDIASTINUM: The cardiac silhouette is slightly enlarged. LUNGS: No infiltrates, effusions or pneumothorax. Prominent bronchovascular [place] in the lower lobes. Early pneumonia is noted excluded. Follow-up advised. OTHER: No free air under the diaphragm. IMPRESSION: Prominent markings in the lower lobes. Early pneumonia is not excluded. Follow- up advised. IMPRESSION: No acute osseous abnormality pelvis. Severe bilateral hip osteoarthritic changes. XR pelvis 1-2V, XR chest 1V portable Ordering provider: Frankie Holcomb MD History: 68 years Female with . Launched off [employer] . Comparison: None. FINDINGS: MEDIASTINUM: The cardiac silhouette is slightly enlarged. LUNGS: No infiltrates, effusions or pneumothorax. Prominent bronchovascular [place] in the lower lobes. Early pneumonia is noted excluded. Follow-up advised. OTHER: No free air under the diaphragm.
--- NOTE | ~2024-07-19 | CT_ITS ---
CT brain wo con Ordering provider: Frankie Holcomb MD History: 68 years Female with . Launched off [employer] . Comparison: February 09, 2008 Technique: CT of the head without contrast. FINDINGS: BRAIN PARENCHYMA AND CSF SPACES: No midline shift, mass effect or hemorrhage. The brain parenchyma a nd CSF spaces are otherwise normal. VISUALIZED PARANASAL SINUSES: Well aerated. MASTOIDS: Well aerated. BONES: The bones appear intact. SOFT TISSUES: Visualized nasopharynx is normal. Superficial soft tissues are normal. IMPRESSION: No acute intracranial findings. Reviewed, dictated and finalized at location A.
--- NOTE | ~2024-07-19 | XR_ITS ---
Exam: Abdomen 1V HISTORY: constipation COMPARISON: Reference is made to a CT examination of the chest abdomen and pelvis dated 07/19/2024 TECHNIQUE: Supine images of the abdomen FINDINGS: Considerable fecal stasis within the colon, similar in appearance to recent CT examination. Bowel gas pattern is otherwise nonspecific and non-obstructive. There is no free air or deep sulci. No pathologic calcifications are seen. Lung bases are not included IMPRESSION: Nonspecific, nonobstructive bowel gas pattern with considerable fecal stasis in the colon. Reviewed, dictated and finalized at location A.
--- NOTE | ~2024-07-19 | CT_ITS ---
CT cervical spine wo con Ordering provider: Frankie Holcomb MD History: . Launched off [employer] . Comparison: None. Technique: CT of the cervical spine was performed without contrast. Sagittal and coronal reformatted images were also obtained and reviewed. Automated exposure control and iterative reconstruction damaris hnique were employed. The dose-length product was 166.21 mGy-cm. FINDINGS: VERTEBRAE: No subluxation or acute fracture. The occipital condyles are intact. Postoperative change s in the cervical spine seen anteriorly at the level of C3 and C4. Fusion of the vertebrae on C5, and C6. Multilevel facet joint disease. DISC SPACES: Degenerative disc disease seen at the level of C6-C7 Narrowing of the left foramina at the level of C6-C7. PARASPINOUS SOFT TISSUES: Normal. IMPRESSION: No acute osseous abnormality cervical spine. Postoperative changes Degenerative disc disease at the level of C6-C7 with narrowing of the left foramen. Reviewed, dictated and finalized at location A. IMPRESSION: No acute osseous abnormality cervical spine. Postoperative changes Degenerative disc disease at the level of C6-C7 with narrowing of the left fora men.
--- NOTE | ~2024-07-19 | CT_ITS ---
CT chest abdomen pelvis w con Ordering provider: Frankie Holcomb MD History: . Launched off [employer] . Comparison: None. Technique: CT chest, abdomen and pelvis with IV contrast only. Radiation reduction technique utilized .The dose-length product was 779.55 mGy-cm. 100 mL Omnipaque 350 was given IV. FINDINGS: CHEST: Bilateral breast implants. --VISUALIZED THORACIC INLET: Normal. --MEDIASTINUM: Aorta/coronary arteries: The thoracic aorta is normal. Heart/other: The heart is slightly enlarged. Lymph nodes: No mediastinal or hilar adenopathy. --LUNGS: No pulmonary nodules or masses. Right basilar atelectasis versus pneumonia with trace of eff usion. Atelectatic changes in the left lung base posteriorly. No pneumothorax. --MUSCULOSKELETAL: Soft tissues: The superficial soft tissues are normal. Bones: Compression fracture of T8 most likely acute. MRI is advised. Undisplaced fracture of the righ t second rib laterally. Age appropriate degenerative changes of the spine. ABDOMEN/PELVIS: --MUSCULOSKELETAL: Bones: No acute fracture. Age appropriate degenerative changes of the spine. Pubic symphysitis. Superficial soft tissues: The superficial soft tissues are normal. --UPPER ABDOMINAL ORGANS: Liver: Normal. Tiny cyst is seen in the right lobe segment #5. Gallbladder: Normal. Spleen: Normal. Stomach/duodenum: Normal. Pancreas: Normal. Adrenals: Normal. Kidneys: Multiple small cysts in the left kidney. Tiny cyst in the right kidney mid pole. Minimal ful lness of the right renal pelvis. --PELVIC ORGANS: The bladder is normal. --BOWEL AND MESENTERY: Colon: No evidence of diverticulitis. Area of narrowing is seen in the transverse colon on the left s vera with enhancement of all which may be inflammatory or infiltrative. Colonoscopy advised. Dilatatio n of the transverse colon proximal to this area is noted. Large fecal material in the right side of t he colon is seen suggestive of constipation. The cecum is seen in the mid abdomen although loss of th e cecum with no obstruction is possible. Appendix is not demonstrated. Small Bowel: Normal. No obstruction. Peritoneum/mesentery: No free air or free fluid. No mesenteric lymphadenopathy. --RETROPERITONEUM: Mild atheromatous disease of the abdominal aorta. No retroperitoneal hemorrhage o r aortic trauma. No retroperitoneal lymphadenopathy or retroperitoneal hemorrhage. IMPRESSION: CHEST: 1. Atelectasis versus pneumonia in the right lung base with trace of effusion. Left basilar atelecta sis. 2. Highly suggestive fracture of the right second rib laterally. 3. Compression fracture of T8. MRI evaluation advised. ABDOMEN/PELVIS: 1. No solid organ injury. 2. Area of narrowing in the transverse colon on the left side 3. Possibility of volvulus of the cecum cannot be excluded. Clinical evaluation and follow-up advise d. 4. Constipation Reviewed, dictated and finalized at location A. IMPRESSION: CHEST: 1. Atelectasis versus pneumonia in the right lung base with trace of effusion. Left basilar atelectasis. 2. Highly suggestive fracture of the right second rib laterally. 3. Compression fracture of T8. MRI evaluation advised. ABDOMEN/PELVIS: 1. No solid organ injury. 2. Area of narrowing in the transverse colon on the left side 3. Possibility of volvulus of the cecum cannot be excluded. Clinical evaluatio n and follow-up advised. 4. Constipation
--- NOTE | ~2024-07-19 | MR_ITS ---
EXAMINATION: MR thoracic spine wo con DATE: 07/20/2024 11:10 INDICATION: T8 compression fracture TECHNIQUE: Magnetic resonance imaging (MRI) of the thoracic spine was performed without intravenous c ontrast. Sagittal localizer T1-weighted FSE of the cervicothoracic spine was obtained. Thoracic spine sequences included sagittal T2-weighted FSE, sagittal T1-weighted SE, Sagittal T2-weighted FS FSE, a nd axial T2-weighted FSE. COMPARISON: CT dated 07/19/2024 FINDINGS: Magnetic field artifact associated with instrumentation for a C3-C4 anterior spinal fusion. There is anterior fusion without instrumentation at C5-C6, also at C4-C5 on prior CT which is obscured by the magnetic field artifact. Normal alignment of the thoracic spine. Reason T8 burst fracture with mild m arrow edema along the horizontal oriented low signal intensity fracture line. There is 60% central ve rtebral body height loss and 2-3 mm retropulsion resulting in mild central canal stenosis at this lev el. The vertebral body height loss also contributes to mild bilateral neural foraminal stenosis at T8 -T9. Remaining vertebral body heights are normal with otherwise normal marrow signal throughout. Mild disc height loss at T3-T4 through T6-T7 as well as at T9-T10. No other central canal stenosis.There this severe facet osteoarthritis contributing to additional mild neural from stenosis on the right at C7-T1 and T1-T2. Mild to moderate facet osteoarthritis throughout the remainder of the thoracic spin e. No other neural foraminal stenosis. There is normal spinal cord signal. The conus terminates at L1 -L2. IMPRESSION: 1. Relatively recent T8 burst fracture with mild marrow edema, 60% central vertebral body height loss and 2-3 mm retropulsion. There is mild secondary central canal stenosis at T8 and mild bilateral T8- T9 neural foraminal stenosis. 2. Mild thoracic spondylosis. Reviewed, dictated and finalized at location A. IMPRESSION: 1. Relatively recent T8 burst fracture with mild marrow edema, 60% central vert ebral body height loss and 2-3 mm retropulsion. There is mild secondary central canal stenosis at T8 and mild bilateral T8-T9 neural foraminal stenosis. 2. Mild thoracic spondylosis.
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
--- OUTSIDE RECORDS SUMMARY | 2024-07-19 09:15 | XMS_ITS | Clinical Summary ---
Author Organization [facility] Address [address] [place] [address] Care Team Providers Care Strand And Binder Controller Name Role Phone Trinidad Dumont MD Primary Care Provider [phone] Allergies No known active allergies Medications levothyroxine (SYNTHROID) 25 MCG tablet Take 1 tablet (25 mcg total) by mouth daily. Active metFORMIN ER (GLUCOPHAGE-XR) 500 MG 24 hr tablet TAKE 2 TABLETS BY MOUTH EVERY DAY WITH FOOD Active PARoxetine (PAXIL) 20 MG tablet TAKE 1 TABLET BY MOUTH DAILY WITH 40 MG Active ALPRAZolam (XANAX) 1 MG tablet TAKE 1 AND 1/2 TABLETS BY MOUTH THREE TIMES DAILY NEEDED 3 Active rimegepant (NURTEC) 75 MG disintegrating tabletIndications:M igraine with aura and with status migrainosus, not intractable Take 1 tablet (75 mg total) by mouth daily as needed for Migraine. Max of 1 tablet (75 mg) in 24 hours. 8 tablet 3 3 Active topiramate (TOPAMAX) 25 MG tabletIndications:M igraine with aura and with status migrainosus, not intractable Take 1 tablet (25 mg total) by mouth nightly at bedtime. 30 tablet 6 4 Active Social History Tobacco Use Types Packs/Day Years Used Date Smoking Tobacco: Never Smokeless Tobacco: Never Tobacco Cessation:Counseling Given: No Alcohol Use Standard Drinks/Week Comments Never 0 (1 standard drink = 0.6 oz pur e alcohol) Comments Unknown Sex and Gender Information Value Date Recorded Sex Assigned at Not on file Legal Sex Female 10:55 AM CDT Gender Identity Not on file Sexual Orientation Not on file Last Filed Vital Signs Vital Sign Reading Time Taken Comments Blood Pressure 140/82 02/06/2023 2:31 PM CDT Pulse 60 02/06/2023 2:31 PM CDT Temperature 37.2 C (98.9 F) 02/06/2023 2:31 PM CDT Respiratory Rate 18 02/06/2023 2:31 PM CDT Oxygen Saturation 100% 02/06/2023 2:31 PM CDT Inhaled Oxygen Concentration - - Weight 65.1 kg (143 lb 8 oz) 02/06/2023 2:31 PM CDT Height 160 cm (5' 3 ) 02/06/2023 2:31 PM CDT Body Mass Index 25.42 02/06/2023 2:31 PM CDT Plan of Treatment Health Maintenance Due Date Last Done Comments Colorectal Cancer Screening Colonoscopy (10 Years) 1955 Hepatitis C 1972 DTaP, Tdap and Td Vaccines ( 1 - Tdap) 1973 Mammogram Screening 1994 Zoster Vaccines (1 of 2) 2004 Annual Medicare Wellness Visit 12/16/2019 Dexa Scan (General) 12/16/2019 Pneumococcal Vaccine: 50+ Ye ars (1 of 1 - PCV) 12/16/2019 COVID-19 Vaccine (1 - 2023-2 5 season) 2023 PHQ-2 (Physician [place]) 04/08/2024 RSV Immunization or 60+ Years (1 - 1-dose 75+ series) 2029 Meningococcal B Vaccine Aged Out No l onger eligible based on patient's age to complete this topic Meningococcal Vaccine Aged Out No chris charity eligible based on patient's age to complete this topic RSV Immunizations Under 20 Months Aged Out No longer eligible based on patient's age to complete this topic Insurance [employer] Care Teams Strand And Binder Controller Relationship Specialty Start Date End Date Trinidad Dumont MD [address] [place] [address] [place] [address] PCP - General FAMILY PRACTICE 12/19/22
--- OUTSIDE RECORDS SUMMARY | 2024-07-19 09:15 | XMS_ITS ---
Author Organization [facility] Address [address] [place] [address] Care Team Providers Care Science Consultant Name Role Phone Elsy Valadezchary Primary Care Provider Kailee Soler [phone] REASON FOR VISIT Kerri DOS SANTOS Approved 04/08/2024-04/07/2025 Encounters Encounter Location Date Provider Diagnosis [facility] [address] [place] [address] 04/28/2024 Kailee Ye Plan Of Treatment Next Appt Details Provider Name:Kailee erwin, 07/23/2024 01:50:00 PM, [facility] [address], [address], Progress Notes * Ngozi TYLER JDOB:1955 (68 yo F)Acc No.[id number]:04/28/2024 Patient: R KIMBERLEE Ngozi J :1955 A ge:68 Y S ex:Female Address:[address], [place], [address] * true * Date: Generated for Alexisi ng/Fawallyg/eTransmitting on: 0 07/19/2024 09:15 AM CDT
--- OUTSIDE RECORDS SUMMARY | 2024-07-19 09:15 | XMS_ITS | Patient Health Record ---
Author Organization [facility], [place] Address [address] [place] [address] Care Team Providers Care Manager Hris Name Role Phone Jersey Valadez Primary Care Provider Kailee Soler Unavailable [phone] Allergies No Known Allergies Reason For Referral No Information Medications Medication SIG (Take, Route, Frequency, Duration) Notes Start Date End Date Status Biofreeze PRN Active Nurtec 75 MG 1 tablet Orally ever y other day as migraine preventive for 30 days 01/28/2024 Not-Takin g Icy Hot PRN Active Medrol 4 MG 6 tabs Day 1, 5 tabs Day 2, 4 tabs Day 3, 3 tabs Day 4, 2 tabs Day 5, 1 tab Day 6, then stop, Orally take full daily dose in AM with food as directed for 6 days 02/04/2024 Not-Taking Womens Multivitamin Not-Taking Vitamin B 12 Active Rgepiegdc-Jeweghoe-Dfziak icone Active Biotin Active Vitamin D3 Active Paxil Active Xanax 3 prn Active Nurtec 75 MG 1 tablet Orally once daily for 30 days As needed 05/14/2024 Active Qulipta 60 MG 1 tablet Orally Once a day for 30 days 01/16/2024 Active Rizatriptan Benzoate 10 MG 1 tablet Orally once, may repeat x1 after 2-4 hours As needed for migraine (max 2tabs/day) 01/16/2024 Active Social History Tobacco Use: Social History Observation Description Date Details (start date - stop date) Former Smoker NA - NA Smoking Smart Form: Question Answer Notes Are you a: former smoker Additional Findings:Tobacco Non-User Tolerant ex -smoker Problems Problem Type SNOMED Code ICD Code Onset Dates Problem Status W/U Status Risk Notes Problem Chronic migraine without aura, non-refractor y (disorder) (150714233550 100) Migraine without aura, not intractable, without status migrainosus (G43.009) Active confirmed Problem Migraine with aura (8294612) Migraine with aura, not intractable, without status migrainosus (G43.109) Active confirmed Problem Chronic migraine without aura, non-intractab le (479237591387 100) Chronic migraine without aura, not intractable, without status migrainosus (G43.709) Active confirmed Problem Chronic tension-type headache (080487125) Chronic tension-type headache, intractable (G44.221) Active confirmed Problem Muscle pain (55653762) Myalgia, unspecified site (M79.10) Active confirmed Vital Signs Oximetry 100 % 05/07/2024 Blood pressure diastolic 80 mm Hg 05/07/2024 Height 63 in 05/07/2024 Blood pressure systolic 146 mm Hg 05/07/2024 Weight 138.2 lbs 05/07/2024 BMI 24.48 kg/m2 05/07/2024 Encounters Encounter Location Date Provider Diagnosis [facility] [address] [place] [id number] 01/16/2024 Kailee Ye Chronic migraine without aura, not intractable, without status migrainosus G43.709 ; Chronic tension-type headache, intractable G44.221 and Myalgia, unspecified site M79.[address] [address] 02/27/2024 Kailee Ye Chronic migraine without aura, not intractable, without status migrainosus G43.709 ; Chronic tension-type headache, intractable G44.221 and Myalgia, unspecified site M79.[address] [address] 05/07/2024 Kailee Ye Chronic migraine without aura, not intractable, without status migrainosus G43.709 ; Chronic tension-type headache, intractable G44.221 and Myalgia, unspecified site M79.[address] [address] 01/27/2024 Kailee Ye [address] [address] 01/27/2024 Kailee Ye [facility] [address] [facility] [address] [place] [address] 02/03/2024 Kailee Ye [address] [address] 04/28/2024 Kailee Ye [address] [address] 05/25/2024 Kailee Jones Assessments Encounter Date Diagnosis (ICD Code) Assessment Notes Treatment Notes Treatment Clinical Notes Section Notes 01/16/2024 Chronic migraine without aura, not intractable, without status migrainosus (ICD-10 - G43.709) -Abortive treatment plan: Start rizatriptan 10 mg. Patient counseled r.e. potential side effects. Gave samples of Nurtec.-Preventi ve treatment plan: Start Qulipta 60 mg daily. Patient counseled r.e. potential side effects.-Educate d the patient on migraine lifestyle recommendations. I [...] daily as supplements; keep scheduled follow-up appointments 01/16/2024 Chronic tension-type headache, intractable (ICD-10 - G44.221) Consider home sleep study to screen for JONNY 02/27/2024 Chronic migraine without aura, not intractable, without status migrainosus (ICD-10 - G43.709) -Abortive treatment plan: Continue Rizatriptan. Gave samples of Nurtec (copay was too high).-Preventiv e treatment plan: Start Qulipta 60 mg daily.-Educated the patient on migraine lifestyle recommendations. I [...] daily as supplements; keep scheduled follow-up appointments 02/27/2024 Chronic tension-type headache, intractable (ICD-10 - G44.221) Discussed stress reduction and getting adequate hydration. 05/07/2024 Chronic migraine without aura, not intractable, [...] to hold off on this for now. 02/27/2024 Myalgia, unspecified site (ICD-10 - M79.10) Follow up with pain management. 01/16/2024 Myalgia, unspecified site (ICD-10 - M79.10) Follow up with Pain Management. Consider PT for myofascial work. Plan Of Treatment Next Appt Details Provider Name:Kailee erwin, 07/23/2024:50:00 PM, [address] [facility], [address], [place], [address], Insurance Providers Payer Name Payer Address Payer Phone Subscriber Number Group Number Insured Name Patient Relationship to Insured Coverage Start Date Coverage End Date [employer] [address] [place] [address] [id number] Ngozi Tyler Self - patient is the insured 4 Medical (General) History Surgical History Surgery Date(Month/Year) right knee surgery left hip right rotator cuff 2 neck surgeries tennis elbow in both carpal tunnel in both hands tubal ligation Hospitalization History Reason Date(Month/Year) endoscopy colonoscopy
--- OUTSIDE RECORDS SUMMARY | 2024-07-19 09:15 | XMS_ITS | Data Portability ---
Author Organization [place] - [facility], Main Office Address [address] [place] [address] Care Team Providers Care Wire Bender Hand Name Role Phone TRINIDAD DUMONT Primary Care Provider [phone] TRINIDAD DUMONT Referring Provider Assessment No assessment recorded. Plan of Treatment Reminders Order Date Submit Date Provider Last Modified By Organization Details Last Modified Time Details Appointments Any 30 2024 10:00A Ebony Us NP Not available Not available Not available Lab HbA1c (hemoglob in A1c), blood [address] [place] [address] Outpatient Lab, [address] [place], [address], 06/16/2024 16:41:27 drug of abuse panel, urine [address] [place] [address] Outpatient Lab, [address] [place], [address], 06/16/2024 14:53:14 CMP, serum or plasma [address] [place] [address] Outpatient Lab, [address] [place], [address], 06/16/2024 14:54:24 TSH + free T4, serum [address] [place] [address] Outpatient Lab, [address] [place], [address], 06/16/2024 14:53:33 folate, serum [address] [place] [address] Outpatient Lab, [address] [place], [address], 06/16/2024 14:53:42 vitamin B12, serum 2024 025 [facility] Outpatient Lab, [address] [place], [address], 06/16/2024 14:53:56 CBC w/ auto diff 2024 025 [facility] Outpatient Lab, [address] [place] [address], [address], 06/16/2024 14:54:03 iron + total iron-bind ing capacity (TIBC), serum 2024 025 [facility] Outpatient Lab, [address] [place], [address], 06/16/2024 14:54:10 vitamin D, 25-hydrox y, total, serum 2024 025 [facility] Outpatient Lab, [address] [place], [address], 06/16/2024 14:54:17 lipid panel, serum 2023 024 [id number] [facility], [address] , [place], [address], 12/25/2023 15:33:19 TSH + free T4, serum 2023 024 [id number] [facility], [address], [place], [address], 12/25/2023 15:32:00 CBC w/ auto diff 2023 024 [facility], [address] , [place], [address], 12/25/2023 15:33:02 HbA1c (hemoglob in A1c), blood 2023 024 [email or web address] [facility], [address], [place], [address], 12/25/2023 15:32:22 CMP, serum or plasma 2023 024 [id number] [facility], [address], [place], [address], 12/25/2023 15:32:44 Referral general surgeon referral - Please call patient to schedule an appointme nt. Thank you. 2023 024 [email or web address] [facility] General Surgery, [address] [facility], [address], [facility] [place], [address], 12/31/2023 08:39:13 Procedures None recorded. Surgeries None recorded. Imaging None recorded. Medication Orders alprazola m 1 mg tablet 2024 025 [id number], [address], [place], [place], [id number], 06/08/2024 11:16:50 alprazola m 1 mg tablet 2023 024 [facility] #[id number], [address], [place], [place], [id number], 02/25/2024 11:48:36 alprazola m 1 mg tablet 2023 024 [facility] #[id number], [address], [place], [place], [id number], 12/03/2023 14:06:11 Patient TargetsNo targets recorded. Patient Instructions Encounter Date Encounter Id Patient Instructions Last Modified By Organization Details Last Modified Time 12/03/2023 [id number] dementia rating scale-2* FUNMI Not available 12/13/2023 09:40:58 multi-dimensiona l health assessment questionnaire* FUNMI Not available 12/13/2023 09:41:05 care plan* Not available 12/02 14:05:36 advance directiv es: care instructions Not available 12/03/2023 14:05:33 advance care planning: care instructions Not available 12/03/2023 14:05:33 [place] Advance Directives Not available 12/03/2023 14:05:33 Personalized Hea lth Plan and Screening Recommendations Advance Directives - Do you have one? No Advance Directives - Do we have your advance directive on file in your health record? Primary Prevention/Interven tion (prevents or decreases the chance of common diseases from occurring) Smoking Risk: Non Smoker Alcohol Misuse Screening: Negative Weight: Appropriate Overwei ght Physical activity: Appropriate physical activity Nutrition: Good Average Fall Risk (screened today): Low Vaccines Pneumococcal: Ordered Recommended today Recommended today, but you have declined Influenza: Your next one in the fall of this year Chronic Disease Risks Stroke: Low Risk Intermediate Risk I have no recommendations Act kassy diagnosis, Continue current treatment plan Heart Attack: Low risk Intermediate Risk I have no recommendations Act kassy diagnosis, Continue current treatment plan Clogging of the Arteries: Low risk I have no recommendations Act kassy diagnosis, Continue current treatment plan Diabetes: Low Risk Intermediate Risk Active diagnosis, Continue current treatment plan Secondary Prevention/Interven tion (detects treatable diseases before they may cause symptoms, disability, or ) Breast Cancer Screening with mammogram: Your next mammogram: Ordered Cervical/Uterine/Ov cedric Cancer Screening: No screening necessary Osteoporosis Screening: No screening necessary Date Screening Last Performed: Colon Cancer Screening: Date Screening Last Performed: Eye Disease Screening: Dementia Risk: Low Depression Screening: Negative Active diagnosis, Continue current treatment plan Not available 12/03/2023 12:29:06 Reason for Referral General Surgeon Referral for Hiatal hernia hiatal hernia, abd pain Please call patient to schedule an appointment. Thank you. Referring Physician: Jersey Valadez, Family Medicine, Encounter Date: 12/03/2023 Results Created Date Observation Date Name Description Value Unit Range Abnormal Flag Note LastModifiedBy Organization Detail LastModifiedTime 09/11/19 24 09/11/2023 DRUG MONIT OR, PANEL 3, W/CON F, URINE amphetamines NEGATI VE NG/mL <500 Not Available [address] [address] [place], [address], 09/11/2023 20:25:17 09/11/19 24 09/11/2023 DRUG MONIT OR, PANEL 3, W/CON F, URINE benzodiazepi rosalia POSITI VE NG/mL <100 abnormal Not Available [address] [address] [place], [address], 09/11/2023 20:25:17 09/11/19 24 09/11/2023 DRUG MONIT OR, PANEL 3, W/CON F, URINE alphahydroxy alprazolam 1720 NG/mL <25 high Not Available [address] [address] [facility] [place], [address], 09/11/2023 20:25:17 09/11/19 24 09/11/2023 DRUG MONIT OR, PANEL 3, W/CON F, URINE alphahydroxy midazolam NEGATI VE NG/mL <50 Not Available [address] , [place], [address], 09/11/2023 20:25:17 09/11/19 24 09/11/2023 DRUG MONIT OR, PANEL 3, W/CON F, URINE alphahydroxy triazolam NEGATI VE NG/mL <50 Not Available [address] [address] [place], [address], 09/11/2023 20:25:17 09/11/19 24 09/11/2023 DRUG MONIT OR, PANEL 3, W/CON F, URINE aminoclonaze yeni NEGATI VE NG/mL <25 Not Available [address] [address] [place], [address], 09/11/2023 20:25:17 09/11/19 24 09/11/2023 DRUG MONIT OR, PANEL 3, W/CON F, URINE hydroxyethyl flurazepam NEGATI VE NG/mL <50 Not Available [address], [place], [address], 09/11/2023 20:25:17 09/11/19 24 09/11/2023 DRUG MONIT OR, PANEL 3, W/CON F, URINE lorazepam NEGATI VE NG/mL <50 Not Available [address] , [place], [address], 09/11/2023 20:25:17 09/11/19 24 09/11/2023 DRUG MONIT OR, PANEL 3, W/CON F, URINE nordiazepam NEGATI VE NG/mL <50 Not Available [address] , [place], [address], 09/11/2023 20:25:17 09/11/19 24 09/11/2023 DRUG MONIT OR, PANEL 3, W/CON F, URINE oxazepam NEGATI VE NG/mL <50 Not Available [address] , [place], [address], 09/11/2023 20:25:17 09/11/19 24 09/11/2023 DRUG MONIT OR, PANEL 3, W/CON F, URINE temazepam NEGATI VE NG/mL <50 Not Available [address] , [place], [address], 09/11/2023 20:25:17 09/11/19 24 09/11/2023 DRUG MONIT OR, PANEL 3, W/CON F, URINE benzodiazepi rosalia comments See [place] gallardo Notes , LDT Notes Not Available [address] , [place], [address], 09/11/2023 20:25:17 09/11/19 24 09/11/2023 DRUG MONIT OR, PANEL 3, W/CON F, URINE cocaine metabolite NEGATI VE NG/mL <150 Not Available [address] , [place], [address], 09/11/2023 20:25:17 09/11/19 24 09/11/2023 DRUG MONIT OR, PANEL 3, W/CON F, URINE marijuana metabolite POSITI VE NG/mL <20 abnormal Not Available [address], [address], 09/11/2023 20:25:17 09/11/19 24 09/11/2023 DRUG MONIT OR, PANEL 3, W/CON F, URINE marijuana metabolite 2056 NG/mL <5 high Not Available [address], [address], 09/11/2023 20:25:17 09/11/19 24 09/11/2023 DRUG MONIT OR, PANEL 3, W/CON F, URINE marijuana comments See Nicholas sloan Notes , LDT Notes Not Available [address], [address], 09/11/2023 20:25:17 09/11/19 24 09/11/2023 DRUG MONIT OR, PANEL 3, W/CON F, URINE opiates NEGATI VE NG/mL <100 Not Available [address], [address], 09/11/2023 20:25:17 09/11/19 24 09/11/2023 DRUG MONIT OR, PANEL 3, W/CON F, URINE oxycodone NEGATI VE NG/mL <100 Not Available [address], [address], 09/11/2023 20:25:17 09/11/19 24 09/11/2023 DRUG MONIT OR, PANEL 3, W/CON F, URINE creatinine 239.5 mg/dL > or = 20.0 Not Available [address], [address], 09/11/2023 20:25:17 09/11/19 24 09/11/2023 DRUG MONIT OR, PANEL 3, W/CON F, URINE pH 6.1 4.5-9. 0 Not Available [facility] [address], [place], [address], 09/11/2023 20:25:17 09/11/19 24 09/11/2023 DRUG MONIT OR, PANEL 3, W/CON F, URINE oxidant NEGATI VE mcg/m L <200 Not Available [facility] [address], [place], [address], 09/11/2023 20:25:17 09/11/19 24 09/11/2023 DRUG MONIT ORING TEMPL ATE notes and comments This drug testi ng is for medic al treat ment only. Luz Maria sis was perfo rmed as non-f orens ic testi ng and these resul ts shoul d be used only by healt hcare provi ders to rende r diagn osis or treat ment, or to monit or progr ess of medic al condi tions . [place] gallardo Notes : aOH Alpra zolam detec marcy is consi stent with the use of the drug Alpra zolam . Marij uana Notes : Marij uana Metab olite detec marcy is consi stent with expos ure to Marij uana (THC) and/o r hemp deriv ed produ cts. Some juris dicti ons do not inclu de hemp withi n the defin ition of Marij uana. LDT Notes : Confi rmati on tests were devel oped and their luz maria tical perfo rmanc e herb cteri stics have been deter mined by [facility]. It has not been clear ed or appro errol by the FDA. This assay has been valid ated pursu ant to the CLIA regul ation s and is used for clini jennyfer purpo ses. Healt hcare Provi ders needi ng Inter preta tion gaye tance , pleas e conta ct us at 1.877 .40.R XTOX (1.87 [phone] ) M-F, 8am to 10pm EST Not Available [facility] [address], [place], [address], 09/11/2023 20:25:19 09/11/19 24 09/11/2023 DRUG MONIT OR, PANEL 3, W/CON F, URINE amphetamines NEGATI VE NG/mL <500 Not Available [address] [address] [place], [address], 09/11/2023 20:26:17 09/11/19 24 09/11/2023 DRUG MONIT OR, PANEL 3, W/CON F, URINE benzodiazepi rosalia POSITI VE NG/mL <100 abnormal Not Available [address] , [place], [address], 09/11/2023 20:26:17 09/11/19 24 09/11/2023 DRUG MONIT OR, PANEL 3, W/CON F, URINE alphahydroxy alprazolam 1720 NG/mL <25 high Not Available [address] [address] [place], [address], 09/11/2023 20:26:17 09/11/19 24 09/11/2023 DRUG MONIT OR, PANEL 3, W/CON F, URINE alphahydroxy midazolam NEGATI VE NG/mL <50 Not Available [address] [address] [facility] [place], [address], 09/11/2023 20:26:17 09/11/19 24 09/11/2023 DRUG MONIT OR, PANEL 3, W/CON F, URINE alphahydroxy triazolam NEGATI VE NG/mL <50 Not Available [address] [address] [place], [address], 09/11/2023 20:26:17 09/11/19 24 09/11/2023 DRUG MONIT OR, PANEL 3, W/CON F, URINE aminoclonaze yeni NEGATI VE NG/mL <25 Not Available [address] [address] [place], [address], 09/11/2023 20:26:17 09/11/19 24 09/11/2023 DRUG MONIT OR, PANEL 3, W/CON F, URINE hydroxyethyl flurazepam NEGATI VE NG/mL <50 Not Available [address], [address], 09/11/2023 20:26:17 09/11/19 24 09/11/2023 DRUG MONIT OR, PANEL 3, W/CON F, URINE lorazepam NEGATI VE NG/mL <50 Not Available [address], [address], 09/11/2023 20:26:17 09/11/19 24 09/11/2023 DRUG MONIT OR, PANEL 3, W/CON F, URINE nordiazepam NEGATI VE NG/mL <50 Not Available [address], [address], 09/11/2023 20:26:17 09/11/19 24 09/11/2023 DRUG MONIT OR, PANEL 3, W/CON F, URINE oxazepam NEGATI VE NG/mL <50 Not Available [address], [address], 09/11/2023 20:26:17 09/11/19 24 09/11/2023 DRUG MONIT OR, PANEL 3, W/CON F, URINE temazepam NEGATI VE NG/mL <50 Not Available [address], [address], 09/11/2023 20:26:17 09/11/19 24 09/11/2023 DRUG MONIT OR, PANEL 3, W/CON F, URINE benzodiazepi rosalia comments See [place] gallardo Notes , LDT Notes Not Available [address], [address], 09/11/2023 20:26:17 09/11/19 24 09/11/2023 DRUG MONIT OR, PANEL 3, W/CON F, URINE cocaine metabolite NEGATI VE NG/mL <150 Not Available [address] , [place], [address], 09/11/2023 20:26:17 09/11/19 24 09/11/2023 DRUG MONIT OR, PANEL 3, W/CON F, URINE marijuana metabolite POSITI VE NG/mL <20 abnormal Not Available [address] , [place], [address], 09/11/2023 20:26:17 09/11/19 24 09/11/2023 DRUG MONIT OR, PANEL 3, W/CON F, URINE marijuana metabolite 2056 NG/mL <5 high Not Available [address] , [place], [address], 09/11/2023 20:26:17 09/11/19 24 09/11/2023 DRUG MONIT OR, PANEL 3, W/CON F, URINE marijuana comments See Nicholas sloan Notes , LDT Notes Not Available [address] , [place], [address], 09/11/2023 20:26:17 09/11/19 24 09/11/2023 DRUG MONIT OR, PANEL 3, W/CON F, URINE opiates NEGATI VE NG/mL <100 Not Available [address] , [place], [address], 09/11/2023 20:26:17 09/11/19 24 09/11/2023 DRUG MONIT OR, PANEL 3, W/CON F, URINE oxycodone NEGATI VE NG/mL <100 Not Available [address] [address] [place], [address], 09/11/2023 20:26:17 09/11/19 24 09/11/2023 DRUG MONIT OR, PANEL 3, W/CON F, URINE creatinine 239.5 mg/dL > or = 20.0 Not Available [address] [address] [place], [address], 09/11/2023 20:26:17 09/11/19 24 09/11/2023 DRUG MONIT OR, PANEL 3, W/CON F, URINE pH 6.1 4.5-9. 0 Not Available [address], [address], 09/11/2023 20:26:17 09/11/19 24 09/11/2023 DRUG MONIT OR, PANEL 3, W/CON F, URINE oxidant NEGATI VE mcg/m L <200 Not Available [address], [address], 09/11/2023 20:26:17 12/26/19 24 12/26/2023 LIPID PANEL , STAND SYED cholesterol, total 191 mg/dL <200 normal Not Available [address], [address], 12/26/2023 14:54:35 12/26/19 24 12/26/2023 LIPID PANEL , STAND SYED HDL cholesterol 76 mg/dL > or = 50 normal Not Available [address], [address], 12/26/2023 14:54:35 12/26/19 24 12/26/2023 LIPID PANEL , STAND SYED triglyceride s 105 mg/dL <150 normal Not Available [address], [address], 12/26/2023 14:54:35 12/26/19 24 12/26/2023 LIPID PANEL , STAND SYED LDL-choleste rol 95 mg/dL _(jennyfer c) normal Refer ence range : <100 Brianne able range <100 mg/dL for prima ry preve ntion ; <70 mg/dL for patie nts with CHD or diabe tic patie nts with > or = 2 CHD risk facto rs. LDL-C is now calcu lated using the Shira n-Hop emigdio culpu martin n, which is a valid ated novel metho d provi moncho whitete r accur acy than the Fried arias equat ion in the estim ation of LDL-C . Shira n SS et al. CORNELIO. 2013; 310(6 3): 2061- 2068 (http ://ed ucati on.Qu Veronica carmenActiviomicss. com/f aq/FA Q164) Not Available [address] [address] [place], [address], 12/26/2023 14:54:35 12/26/19 24 12/26/2023 LIPID PANEL , STAND SYED chol/HDLC ratio 2.5 (calc ) <5.0 normal Not Available [address], [address], 12/26/2023 14:54:35 12/26/19 24 12/26/2023 LIPID PANEL , STAND SYED non HDL cholesterol 115 mg/dL _(jennyfer c) <130 normal For patie nts with diabe meg plus 1 major ASCVD risk facto r, treat ing to a non-H DL-C goal of <100 mg/dL (LDL- C of <70 mg/dL ) is consi dered a thera peuti c optio n. Not Available [address], [address], 12/26/2023 14:54:35 12/26/19 24 12/26/2023 TSH+F REE T4 TSH 4.43 mIU/L 0.40-4 .50 normal Not Available [address] [address] [place], [address], 12/26/2023 14:54:36 12/26/19 24 12/26/2023 TSH+F REE T4 T4, free 1.0 NG/dL 0.8-1. 8 normal Not Available [address], [address], 12/26/2023 14:54:36 12/26/19 24 12/26/2023 COMPR EHENS KASSY METAB OLIC PANEL glucose 85 mg/dL 65-99 normal Fasti ng refer ence inter tova Not Available [address], [address], 12/26/2023 14:54:36 12/26/19 24 12/26/2023 COMPR EHENS KASSY METAB OLIC PANEL urea nitrogen (BUN) 10 mg/dL 7-25 normal Not Available [address], [address], 12/26/2023 14:54:36 12/26/19 24 12/26/2023 COMPR EHENS KASSY METAB OLIC PANEL creatinine 0.76 mg/dL 0.50-1 .05 normal Not Available [address], [address], 12/26/2023 14:54:36 12/26/19 24 12/26/2023 COMPR EHENS KASSY METAB OLIC PANEL eGFR 85 mL/mi n/1.7 3m2 > or = 60 normal Not Available [address], [address], 12/26/2023 14:54:36 12/26/19 24 12/26/2023 COMPR EHENS KASSY METAB OLIC PANEL BUN/creatini ne ratio SEE NOTE: (calc ) 6-22 Not Repor marcy: BUN and Creat inine are withi n refer ence range . Not Available [address], [address], 12/26/2023 14:54:36 12/26/19 24 12/26/2023 COMPR EHENS KASSY METAB OLIC PANEL sodium 140 mmol/ L 135-14 6 normal Not Available [address], [address], 12/26/2023 14:54:36 12/26/19 24 12/26/2023 COMPR EHENS KASSY METAB OLIC PANEL potassium 4.1 mmol/ L 3.5-5. 3 normal Not Available [address], [address], 12/26/2023 14:54:36 12/26/19 24 12/26/2023 COMPR EHENS KASSY METAB OLIC PANEL chloride 102 mmol/ L 98-110 normal Not Available [address], [address], 12/26/2023 14:54:36 12/26/19 24 12/26/2023 COMPR EHENS KASSY METAB OLIC PANEL carbon dioxide 30 mmol/ L 20-32 normal Not Available [address], [address], 12/26/2023 14:54:36 12/26/19 24 12/26/2023 COMPR EHENS KASSY METAB OLIC PANEL calcium 9.6 mg/dL 8.6-10 .4 normal Not Available [address], [address], 12/26/2023 14:54:36 12/26/19 24 12/26/2023 COMPR EHENS KASSY METAB OLIC PANEL protein, total 6.5 g/dL 6.1-8. 1 normal Not Available [address], [address], 12/26/2023 14:54:36 12/26/19 24 12/26/2023 COMPR EHENS KASSY METAB OLIC PANEL albumin 4.4 g/dL 3.6-5. 1 normal Not Available [address], [address], 12/26/2023 14:54:36 12/26/19 24 12/26/2023 COMPR EHENS KASSY METAB OLIC PANEL globulin 2.1 g/dL_ (calc ) 1.9-3. 7 normal Not Available [address], [address], 12/26/2023 14:54:36 12/26/19 24 12/26/2023 COMPR EHENS KASSY METAB OLIC PANEL albumin/glob ulin ratio 2.1 (calc ) 1.0-2. 5 normal Not Available [address], [address], 12/26/2023 14:54:36 12/26/19 24 12/26/2023 COMPR EHENS KASSY METAB OLIC PANEL bilirubin, total 0.6 mg/dL 0.2-1. 2 normal Not Available [address], [address], 12/26/2023 14:54:36 12/26/19 24 12/26/2023 COMPR EHENS KASSY METAB OLIC PANEL alkaline phosphatase 82 U/L 37-153 normal Not Available [address], [address], 12/26/2023 14:54:36 12/26/19 24 12/26/2023 COMPR EHENS KASSY METAB OLIC PANEL AST 43 U/L 10-35 high Not Available [address], [address], 12/26/2023 14:54:36 12/26/19 24 12/26/2023 COMPR EHENS KASSY METAB OLIC PANEL ALT 40 U/L 6-29 high Not Available [address], [address], 12/26/2023 14:54:36 12/26/19 24 12/26/2023 CBC (INCL UDES DIFF/ PLT) white blood cell count 5.6 thous and/u L 3.8-10 .8 normal Not Available [address], [address], 12/26/2023 14:54:37 12/26/19 24 12/26/2023 CBC (INCL UDES DIFF/ PLT) red blood cell count 4.49 sandi on/uL 3.80-5 .10 normal Not Available [address], [address], 12/26/2023 14:54:37 12/26/19 24 12/26/2023 CBC (INCL UDES DIFF/ PLT) hemoglobin 13.5 g/dL 11.7-1 5.5 normal Not Available [address], [address], 12/26/2023 14:54:37 12/26/19 24 12/26/2023 CBC (INCL UDES DIFF/ PLT) hematocrit 42.3 % 35.0-4 5.0 normal Not Available [address], [address], 12/26/2023 14:54:37 12/26/19 24 12/26/2023 CBC (INCL UDES DIFF/ PLT) MCV 94.2 fL 80.0-1 00.0 normal Not Available [address], [address], 12/26/2023 14:54:37 12/26/19 24 12/26/2023 CBC (INCL UDES DIFF/ PLT) MCH 30.1 pg 27.0-3 3.0 normal Not Available [address], [address], 12/26/2023 14:54:37 12/26/19 24 12/26/2023 CBC (INCL UDES DIFF/ PLT) MCHC 31.9 g/dL 32.0-3 6.0 low Not Available [address], [address], 12/26/2023 14:54:37 12/26/19 24 12/26/2023 CBC (INCL UDES DIFF/ PLT) RDW 12.8 % 11.0-1 5.0 normal Not Available [address], [address], 12/26/2023 14:54:37 12/26/19 24 12/26/2023 CBC (INCL UDES DIFF/ PLT) platelet count 292 thous and/u L 140-40 0 normal Not Available [address], [address], 12/26/2023 14:54:37 12/26/19 24 12/26/2023 CBC (INCL UDES DIFF/ PLT) MPV 10.1 fL 7.5-12 .5 normal Not Available [address], [address], 12/26/2023 14:54:37 12/26/19 24 12/26/2023 CBC (INCL UDES DIFF/ PLT) absolute neutrophils 2615 cells /uL 1500-7 800 normal Not Available [address], [address], 12/26/2023 14:54:37 12/26/19 24 12/26/2023 CBC (INCL UDES DIFF/ PLT) absolute lymphocytes 2262 cells /uL 850-39 00 normal Not Available [address], [address], 12/26/2023 14:54:37 12/26/19 24 12/26/2023 CBC (INCL UDES DIFF/ PLT) absolute monocytes 566 cells /uL 200-95 0 normal Not Available [address], [address], 12/26/2023 14:54:37 12/26/19 24 12/26/2023 CBC (INCL UDES DIFF/ PLT) absolute eosinophils 118 cells /uL 15-500 normal Not Available [address], [address], 12/26/2023 14:54:37 12/26/19 24 12/26/2023 CBC (INCL UDES DIFF/ PLT) absolute basophils 39 cells /uL 0-200 normal Not Available [facility] [address], [address], 12/26/2023 14:54:37 12/26/19 24 12/26/2023 CBC (INCL UDES DIFF/ PLT) neutrophils 46.7 % normal Not Available [facility] [address], [address], 12/26/2023 14:54:37 12/26/19 24 12/26/2023 CBC (INCL UDES DIFF/ PLT) lymphocytes 40.4 % normal Not Available [facility] [address], [address], 12/26/2023 14:54:37 12/26/19 24 12/26/2023 CBC (INCL UDES DIFF/ PLT) monocytes 10.1 % normal Not Available [facility] [address], [address], 12/26/2023 14:54:37 12/26/19 24 12/26/2023 CBC (INCL UDES DIFF/ PLT) eosinophils 2.1 % normal Not Available [facility] [address], [address], 12/26/2023 14:54:37 12/26/19 24 12/26/2023 CBC (INCL UDES DIFF/ PLT) basophils 0.7 % normal Not Available [facility] [address], [address], 12/26/2023 14:54:37 12/26/19 24 12/26/2023 HEMOG LOBIN A1C hemoglobin A1C 5.8 %_of_ total _HGB <5.7 high For someo ne witho ut known diabe meg, a hemog lobin A1c value betwe en 5.7% and 6.4% is consi stent with predi abete s and shoul d be confi rmed with a follo w-up test. For someo ne with known diabe meg, a value <7% indic ates that their diabe meg is well contr olled . A1c targe ts shoul d be indiv idual ized based on durat ion of diabe meg, age, comor bid condi tions , and other consi derat ions. This assay resul t is consi stent with an incre ased risk of diabe meg. Curre ntly, no conse nsus exist s jyotsna ivan use of hemog lobin A1c for diagn osis of diabe meg for child ericka. This test was perfo rmed on the [facility] c503 platf orm. Effec tive , a giorgi agrawal in test platf orms from the [facility] to the [facility] c503 may have shift ed HbA1c resul ts say red to histo rical resul ts. Based on labor atory valid ation testi ng condu cted at [facility] , the Alex platf orm relat kassy to the [facility] platf orm had an avera ge incre ase in HbA1c value of < or = 0.3%. This diffe rence is withi n accep marcy varia bilit y estab lishe d by the [facility] [facility] [employer] hemog lobin Stand ardiz ation Progr am. Note that not all indiv idual s will have had a shift in their resul ts and direc t say rison s betwe en histo rical and curre nt resul ts for testi ng condu cted on diffe rent platf orms is not recom randal d. NO COLLE CTION DATE RECEI ERROL. WE HAVE USED THE DATE THE SPECI MEN WAS RECEI ERROL BY THIS LABOR ATORY THE COLLE CTION DATE. IF THIS IS INCOR RECT, PLEAS E CONTA CT CLIEN T SERVI MAURI. PHONE NUMBE R: [phone] Not Available [facility] [address], [place], [address], 12/26/2023 14:54:37 09/06/19 24 09/06/2023 HEPAT IC/LI LATRICIA PANEL alkaline phosphatase 78 U/L 38-126 Not Available [facility] (Lab) [address] [place], [address], 09/06/2023 20:46:31 09/06/19 24 09/06/2023 HEPAT IC/LI LATRICIA PANEL alanine aminotransfe rase 29 U/L 0-35 Not Available [facility] (Lab) [address] [place], [address], 09/06/2023 20:46:31 09/06/19 24 09/06/2023 HEPAT IC/LI LATRICIA PANEL aspartate aminotransfe rase 33 U/L 15-37 Not Available [facility] (Lab) [address] [place], [address], 09/06/2023 20:46:31 09/06/19 24 09/06/2023 HEPAT IC/LI LATRICIA PANEL bilirubin, total 0.80 mg/dL 0.20-1 .30 Not Available [facility] (Lab) [address] [place], [address], 09/06/2023 20:46:31 09/06/19 24 09/06/2023 HEPAT IC/LI LATRICIA PANEL bilirubin, conjugated (direct) 0.00 mg/dL 0.00-0 .30 Not Available [facility] (Lab) [address] [place], [address], 09/06/2023 20:46:31 09/06/19 24 09/06/2023 HEPAT IC/LI LATRICIA PANEL biliurubin,u ncong. (indirect) 0.50 mg/dL 0.00-1 .1 Not Available [facility] (Lab) [address] [place], [address], 09/06/2023 20:46:31 09/06/19 24 09/06/2023 HEPAT IC/LI LATRICIA PANEL total protein 6.9 g/dL 6.3-8. 2 Not Available [facility] (Lab) [address] [place], [address], 09/06/2023 20:46:31 09/06/19 24 09/06/2023 HEPAT IC/LI LATRICIA PANEL albumin 4.5 g/dL 3.0-4. 4 high Not Available [facility] (Lab) [address] [place], [address], 09/06/2023 20:46:31 09/06/19 24 09/06/2023 HEPAT IC/LI LATRICIA PANEL globulin 2.4 g/dL 2.6-4. 2 low Not Available [facility] (Lab) [address] [place], [address], 09/06/2023 20:46:31 09/06/19 24 09/06/2023 HEPAT IC/LI LATRICIA PANEL A/G ratio 1.9 ratio 1.0-2. 0 Not Available [facility] (Lab) [address] [place], [address], 09/06/2023 20:46:31 09/06/19 24 09/06/2023 CBC/C OMPLE TE BLD COUNT W/DIF F white blood cells 4.8 x10'3 /uL 4.2-10 .8 Not Available [facility] (Lab) [address] [place], [address], 09/06/2023 21:03:53 09/06/19 24 09/06/2023 CBC/C OMPLE TE BLD COUNT W/DIF F red blood cells 4.71 x10'6 /uL 3.80-5 .20 Not Available [facility] (Lab) [address] [place], [address], 09/06/2023 21:03:53 09/06/19 24 09/06/2023 CBC/C OMPLE TE BLD COUNT W/DIF F hemoglobin 14.0 g/dL 12.0-1 5.6 Not Available [facility] (Lab) [address] [place], [address], 09/06/2023 21:03:53 09/06/19 24 09/06/2023 CBC/C OMPLE TE BLD COUNT W/DIF F hematocrit 43.2 % 35.7-4 5.7 Not Available [facility] (Lab) [address] [place], [address], 09/06/2023 21:03:53 09/06/19 24 09/06/2023 CBC/C OMPLE TE BLD COUNT W/DIF F mean red cell volume 91.7 fL 82.0-9 9.0 Not Available [facility] (Lab) [address] [place], [address], 09/06/2023 21:03:53 09/06/19 24 09/06/2023 CBC/C OMPLE TE BLD COUNT W/DIF F mean red cell hemoglobin 29.7 pg 27.0-3 3.0 Not Available [facility] (Lab) [address] [place], [address], 09/06/2023 21:03:53 09/06/19 24 09/06/2023 CBC/C OMPLE TE BLD COUNT W/DIF F mean RBC HGB concentratio n 32.4 g/dL 31.0-3 6.0 Not Available [facility] (Lab) [address] [place], [address], 09/06/2023 21:03:53 09/06/19 24 09/06/2023 CBC/C OMPLE TE BLD COUNT W/DIF F red cell distribution width 12.8 % 11.8-1 5.5 Not Available [facility] (Lab) [address] [place], [address], 09/06/2023 21:03:53 09/06/19 24 09/06/2023 CBC/C OMPLE TE BLD COUNT W/DIF F platelets 266 x10'3 /uL 150-40 0 Not Available [facility] (Lab) [address] [place], [address], 09/06/2023 21:03:53 09/06/19 24 09/06/2023 CBC/C OMPLE TE BLD COUNT W/DIF F mean platelet volume 11.3 fL 9.0-12 .4 Not Available [facility] (Lab) [address] [place], [address], 09/06/2023 21:03:53 09/06/19 24 09/06/2023 CBC/C OMPLE TE BLD COUNT W/DIF F neutrophils 56.6 % 39.0-7 2.0 Not Available [facility] (Lab) [address] [place], [address], 09/06/2023 21:03:53 09/06/19 24 09/06/2023 CBC/C OMPLE TE BLD COUNT W/DIF F lymphocytes 32.2 % 16.0-4 7.0 Not Available [facility] (Lab) [address] [place], [address], 09/06/2023 21:03:53 09/06/19 24 09/06/2023 CBC/C OMPLE TE BLD COUNT W/DIF F monocytes 8.1 % 5.0-12 .0 Not Available [facility] (Lab) [address] [place], [address], 09/06/2023 21:03:53 09/06/19 24 09/06/2023 CBC/C OMPLE TE BLD COUNT W/DIF F eosinophils 2.3 % 1.0-7. 0 Not Available [facility] (Lab) [address] [place], [address], 09/06/2023 21:03:53 09/06/19 24 09/06/2023 CBC/C OMPLE TE BLD COUNT W/DIF F basophils 0.6 % 0.0-2. 0 Not Available [facility] (Lab) [address] [place], [address], 09/06/2023 21:03:53 09/06/19 24 09/06/2023 CBC/C OMPLE TE BLD COUNT W/DIF F immature granulocytes 0.2 % 0.00-0 .50 Not Available [facility] (Lab) [address] [place], [address], 09/06/2023 21:03:53 09/06/19 24 09/06/2023 CBC/C OMPLE TE BLD COUNT W/DIF F neutrophils, absolute count 2.73 x10'3 /uL 1.5-8. 0 Not Available [facility] (Lab) [address] [place], [address], 09/06/2023 21:03:53 09/06/19 24 09/06/2023 CBC/C OMPLE TE BLD COUNT W/DIF F lymphocytes, absolute count 1.55 x10'3 /uL 1.07-3 .43 Not Available [facility] (Lab) [address] [place], [address], 09/06/2023 21:03:53 09/06/19 24 09/06/2023 CBC/C OMPLE TE BLD COUNT W/DIF F monocytes, absolute count 0.39 x10'3 /uL 0.29-0 .99 Not Available [facility] (Lab) [address] [place], [address], 09/06/2023 21:03:53 09/06/19 24 09/06/2023 CBC/C OMPLE TE BLD COUNT W/DIF F eosinophils, absolute count 0.11 x10'3 /uL 0.02-0 .53 Not Available [facility] (Lab) [address] [place], [address], 09/06/2023 21:03:53 09/06/19 24 09/06/2023 CBC/C OMPLE TE BLD COUNT W/DIF F basophils, absolute count 0.03 x10'3 /uL 0.01-0 .08 Not Available [facility] (Lab) [address] [place], [address], 09/06/2023 21:03:53 09/06/19 24 09/06/2023 CBC/C OMPLE TE BLD COUNT W/DIF F immature granulocytes ,absolute 0.01 x10'3 /uL 0.00-0 .05 Not Available [facility] (Lab) [address] [place], [address], 09/06/2023 21:03:53 09/06/19 24 09/06/2023 CBC/C OMPLE TE BLD COUNT W/DIF F nucleated red blood cells 0.0 % -0 Not Available [facility] (Lab) [address] [place], [address], 09/06/2023 21:03:53 09/06/19 24 09/06/2023 CBC/C OMPLE TE BLD COUNT W/DIF F NRBC# 0.00 x10'3 /uL Not Available [facility] (Lab) [address] [place], [address], 09/06/2023 21:03:53 09/06/19 24 09/06/2023 T4 FREE free T4 1.24 NG/dL 0.78-2 .19 Not Available [facility] (Lab) [address] [place], [address], 09/06/2023 21:17:26 09/06/19 24 09/06/2023 TSH thyroid-stim ulating hormone 1.210 uIU/m L 0.465- 4.680 Not Available [facility] (Lab) [address] [place], [address], 09/06/2023 21:20:37 09/06/19 24 09/08/2023 THYRO ID PEROX IDASE (TPO) AB thyroid peroxidase (tpo) Ab 14 IU/mL 0-34 Perfo rmed at: [facility] [address], [place] [address] Lab Direc tor: Ha martino PhD, Phone : [phone] Not Available [facility] (Lab) [address] [place], [address], 09/08/2023 07:07:55 09/06/19 24 09/09/2023 THYRO GLOBU KOBE ANTIB ROBERT thyroglobuli n antibody 38.8 IU/mL 0.0-0. 9 high Thyro globu kobe Antib robert measu red by Gerardo carrera Coul[facility] Metho dolog y . It shoul d be noted that the prese nce of thyro globu kobe antib odies may not be patho genic nor diagn ostic , espec ially at very low level s. The assay yurif actur er has found that four perce nt of indiv idual s witho ut evide nce of thyro id disea se or autoi mmuni ty will have posit kassy TgAb level s up to 4 IU/mL . Perfo rmed at: [facility] [place] [address] [address] Lab Direc tor: Ha martino PhD, Phone : [phone] Not Available [facility] (Lab) [address] [place], [address], 09/09/2023 17:09:22 11/22/19 24 11/21/2023 NM, bone scan No observ ation record ed. [email or web address] [address] [place] [address], [address], 11/28/2023 23:31:18 12/26/19 24 11/15/2023 CT, abdom en + pelvi s, w/wo contr ast No observ ation record ed. [email or web address] [facility] [place] [address] [place], [address], 01/02/2024 11:30:53 Result Notes None recorded. Problems Name Problem SNOMED Code Status Onset Date Resolution Date Notes Provider Name and Address Organization Details Recorded Time History of right total knee replacemen t 5380242913928 102 Active 2020 Not Available [facility] 4 14:05:15 Pain in right sacroiliac joint 8887689588841 9107 Active 2021 Not Available [facility] 4 14:05:15 Vaginal discharge symptom 776989040 Active Not Available [facility] 4 14:05:15 Mammograph y abnormal 766188999 Active Not Available [facility] 4 14:05:15 Sacroiliac joint pain 388970182 Active 2021 Not Available [facility] 4 14:05:15 Tear of meniscus of knee 153636700 Active 2020 Not Available [facility] 4 14:05:15 Lichen sclerosus et atrophicus Active Not Available [facility] 4 14:05:15 Low back pain 834518992 Active 2018 Not Available [facility] 4 14:05:15 Tear of medial meniscus of knee 083808637 Active 2021 Not Available [facility] 4 14:05:15 Tear of lateral meniscus of knee 184994101 Active 2021 Not Available [facility] 4 14:05:15 Current tear of medial cartilage AND/OR meniscus of knee Active 2020 Not Available [facility] 4 14:05:15 Osteopenia 838813626 Active Not Available [facility] 4 14:05:15 Osteoarthr itis of right knee joint 6327042623894 00 Active 2020 Not Available [facility] 4 14:05:16 Acute vulvitis 80799025 Active Not Available [facility] 4 14:05:16 Genital herpes simplex 97281361 Active Not Available [facility] 4 14:05:16 Depressive disorder 38841107 Active 2018 Not Available [facility] 4 14:05:16 Onychomyco sis of toenails 167091677 Active 2021 Not Available [facility] 4 14:05:16 Cervicovag inal cytology specimen unsatisfac tory 595956222 Active Not Available [facility] 4 14:05:16 Ulcer 741320463 Active 2018 Not Available [facility] 4 14:05:16 Hyperlipid emia 61189947 Active 2020 Not Available [facility] 4 14:05:16 Iron deficiency anemia 54318079 Active 2018 Not Available [facility] 4 14:05:16 Gastroesop hageal reflux disease without esophagiti s 466148213 Active 2022 Not Available [facility] 4 14:05:15 Hypothyroi dism 27267413 Active 2022 Not Available [facility] 4 14:05:16 Malaise and fatigue 931525624 Active 2022 Not Available [facility] 4 14:05:15 Prediabete s 206406590 Active 2022 Not Available [facility] 4 14:05:16 Thrombocyt osis 8832894 Active 2022 Not Available [facility] 4 14:05:16 Liver enzymes level above reference range 630582166 Active 2022 Not Available [facility] 4 14:05:16 Gastric ulcer 637912694 Active 2022 Not Available [facility] 4 14:05:16 Pain of right knee joint 9537940817928 00 Active 2022 Not Available [facility] 4 14:05:16 Pain in right hip joint 7870885321775 02 Active 2022 Not Available [facility] 4 14:05:15 Trochanter ic bursitis of right hip 2724680190609 00 Active 2022 Not Available [facility] 4 14:05:15 Migraine 00423178 Active 2022 Not Available [facility] 4 14:05:16 Spinal stenosis of lumbar region 59115851 Active 2022 Not Available [facility] 4 14:05:15 Mixed anxiety and depressive disorder 623635507 Active 2022 Not Available [facility] 4 14:05:15 Vitamin D deficiency 12934144 Active 2022 Not Available [facility] 4 14:05:16 Lesion of skin of nose 5499028830732 9103 Active 2022 Not Available [facility] 4 14:05:15 Iron deficiency 88605477 Active 2023 Not Available [facility] 4 14:05:16 Melena 7134769 Active 2023 Not Available [facility] 4 14:05:15 Abdominal bloating 635883101 Active 2023 Not Available [facility] 4 14:05:15 Thyroid function tests abnormal 082637917 Active 2023 Trinidad Dumont MD [address], [address], [place], [address] , [employer] [facility] [employer] [facility] 4 12:46:39 Leukopenia 02971832 Active 2023 Trinidad Dumont MD [address], [address], [place], [address] , [employer] [facility] [employer] [facility] 4 12:47:02 Abdominal pain 69822385 Active 2023 JORDI Brian [address], [address], [place], [address] , [employer] [facility] 4 14:45:50 Hiatal hernia 32977086 Active 2023 JORDI Brian [address], [address], [place], [address] , [employer] [facility] 4 14:52:27 Uniform abdominal distention 484146884 Active 2023 JORDI Cortez [address], [address], [place], [address] , [employer] [facility] [employer] [facility] 4 11:25:56 Anxiety 85422089 Active 2023 KATT Cortez-Jing [address], [address], [place], [address] , [employer] [facility] [employer] [facility] 4 17:56:51 Fatigue 91109544 Active 2024 JORDI Cortez [address], [address], [place], [address] , [employer] [facility] 5 11:08:04 Problem Notes None recorded. Procedures Surgical History Date Name Laterality Status Provider Name and Address Organization Details Recorded Time 12/02 Medicare Wellness CPT Code, subsequent completed JORDI Brian [address], [address], [place], [address] , [employer] 4 12:25:09 11/26 Ortho - Cortisone Injection completed Urbano Duffy MD [address], [address], [place], [address] , [employer] 3 11:41:44 10/29 Ortho - Cortisone Injection completed Urbano Duffy MD [address], [address], [place], [address] , [employer] 3 10:06:15 07/20 esophagogastroduodenoscopy completed Cas Sood [employer] [facility] 3 16:37:57 07/20 EGD completed Olinda Brantley LPN [employer] 3 12:20:17 07/20 EGD completed Olinda Brantley LPN [employer] 3 15:24:10 06/20 EGD completed Not Available [facility] 3 00:47:34 01/16 Most Recent Mammogram completed Not Available [facility] 3 00:47:30 12/19 Date of Last Pap Smear completed Not Available [facility] 3 00:47:30 12/12 Lasik completed Not Available [facility] 3 00:47:34 07/08 Most Recent Bone Density completed Not Available [facility] 3 00:47:30 Rotator cuff surgery completed Not Available [facility] 3 00:47:34 arthroscopy of knee completed Not Available [facility] 3 00:47:34 procedure on shoulder completed Not Available [facility] 3 00:47:34 operation on hip joint completed No t Available [facility] 3 00:47:34 Orthopedic Surgery completed Not Available [facility] 3 00:47:34 Breast augmentation w/implt complete d Not Available [facility] 3 00:47:34 PHTHALIC ACID PURIFIER Procedure completed Not Available [facility] 3 00:47:34 Neck Surgeries completed Not Available [facility] 3 00:47:34 Imaging Results Imaging Date Name Status LastModified by Organization Details Last Modified Time 11/21/2023 NM, bone scan completed [email or web address] [place] [address] [facility] [address] [place] [address], [address], 11/28/2023 23:31:18 11/15/2023 CT, abdomen + pelvis, w/wo contrast completed [email or web address] [facility] [address] [place], [address], 01/02/2024 11:30:53 Procedure Notes None recorded. Medical Equipment None Reported. Allergies Allergen ID Allergen Name Allergen Category Reaction Reaction Severity Criticality Documentation Date Start Date Code Code System Note Provider Name and Address Organization Details Recorded Time 1203 Acetamino phen / Propoxyph estuardo medicatio n nausea Not available Not available 06/06/2022 [id number] RxNorm Not Available [facility] 3 01:01:19 Medications Name Sig Start Date Stop Date Status Note LastModified by Organization Details LastModified Time celecoxib 200 mg capsule 06/28 completed Not Available Not Available Not Available fluoxetine 40 mg capsule 10/14 completed Not Available Not Available Not Available cyclobenzap rine 10 mg tablet TAKE 1 TABLET BY MOUTH THREE TIMES DAILY active Not Available Not Available No t Available dicloxacill in 500 mg capsule active Not Available Not Available Not Available buspirone 5 mg tablet 01/05 completed Not Available Not Available Not Available venlafaxine ER 37.5 mg capsule,ext ended release 24 hr TAKE 1 CAPSULE EVERY MORNING 10/16 completed Not Available Not Available Not Available prednisone 10 mg tablet TAKE 1 TABLET BY MOUTH TWICE DAILY 06/08 completed Not Available Not Available Not Available atorvastati n 20 mg tablet 10/16 completed Not Available Not Available Not Available citalopram 40 mg tablet 10/14 completed Not Available Not Available Not Available trazodone 50 mg tablet 10/14 completed Not Available Not Available Not Available ibuprofen 800 mg tablet TAKE ONE TABLET 3 TIMES DAILY NEEDED FOR PAIN 08/18 completed Not Available Not Available Not Available alprazolam 1 mg tablet TAKE 1 AND 1/2 TABLETS BY MOUTH THREE TIMES DAILY NEEDED active Not Available Not Available No t Available ofloxacin 0.3 % eye drops INSTILL 1 DROP IN RIGHT EYE FOUR TIMES DAILY AFTER SURGERY 01/10 completed Not Available Not Available Not Available tizanidine 4 mg tablet 10/14 completed Not Available Not Available Not Available citalopram 10 mg tablet active Not Available Not Available Not Available sumatriptan 100 mg tablet TAKE 1 TABLET BY MOUTH EVERY DAY NEEDED FOR MIGRAINE 06/08 completed Not Available Not Available Not Available hydrocodone 5 mg-acetamin ophen 325 mg tablet active Not Available Not Available No t Available sucralfate 100 mg/mL oral suspension Take 10 mL 4 times a day by oral route as needed. 2022 active Not Available Not Available Not Avai lable meloxicam 15 mg tablet TAKE ONE TABLET DAILY WITH FOOD OR MILK NEEDED FOR PAIN 10/16 completed Not Available Not Available Not Available sucralfate 1 gram tablet TAKE 1 TABLET BY MOUTH FOUR TIMES DAILY active Not Available Not Available No t Available venlafaxine 25 mg tablet 08/16 completed Not Available Not Available Not Available famotidine 40 mg tablet TAKE 1 TABLET BY MOUTH EVERY DAY active Not Available Not Available No t Available prednisone 20 mg tablet TAKE 2 TABLETS BY MOUTH EVERY MORNING WITH FOOD FOR 5 DAYS 04/16 completed Not Available Not Available Not Available alendronate 70 mg tablet TAKE 1 TABLET BY MOUTH 1 TIME EVERY WEEK IN THE MORNING ON AN EMPTY STOMACH. DO NOT LIE DOWN FOR 30 MINUTES active Not Available Not Available No t Available rizatriptan 10 mg tablet TAKE 1 TABLET BY MOUTH ONCE MAY REPEAT X 1 2-4 HOURS NEEDED FOR MIGRAINE active Not Available Not Available No t Available gabapentin 400 mg capsule TAKE TWO CAPSULES 3 TIMES DAILY NEEDED 10/16 completed Not Available Not Available Not Available lidocaine 4 % topical cream apply to affected area twice daily as needed active Not Available Not Available No t Available olanzapine 5 mg tablet 10/14 completed Not Available Not Available Not Available clonazepam 1 mg tablet 10/16 completed Not Available Not Available Not Available clobetasol 0.05 % topical cream APPLY EXTERNALL Y TO THE AFFECTED AREA TWICE DAILY DIRECTED 12/31 completed Not Available Not Available Not Available Diflucan 150 mg tablet Take 1 tablet by oral route as directed for 1 day. 01/14 completed Not Available Not Available Not Available topiramate 25 mg tablet active Not Available Not Available Not Available metronidazo le 500 mg tablet 10/16 completed Not Available Not Available Not Available valacyclovi r 500 mg tablet Take 1 tablet twice a day by oral route for 5 days. active Not Available Not Available No t Available ciprofloxac in 500 mg tablet active Not Available Not Available Not Available sulfamethox azole 800 mg-trimetho prim 160 mg tablet active Not Available Not Available Not Available omeprazole 40 mg capsule,del ayed release 10/14 completed Not Available Not Available Not Available tramadol 50 mg tablet active Not Available Not Available No t Available butalbital- acetaminoph en-caffeine 50 mg-325 mg-40 mg tablet TAKE 1 TO 2 TABLETS BY MOUTH EVERY 6 HOURS NEEDED active Not Available Not Available No t Available levothyroxi ne 25 mcg tablet TAKE 1 TABLET BY MOUTH EVERY DAY 04/16 completed Not Available Not Available Not Available ketorolac 10 mg tablet active Not Available Not Available Not Available prednisone 10 mg tablets in a dose pack Take 1 tab by mouth, 3 times a day for 3 daysTake 1 tab by mouth 2 times a day for 2 daysTake 1 tab by mouth once a day for 1 day 12/03 completed Not Available Not Available Not Available oxycodone-a cetaminophe n 5 mg-325 mg tablet TAKE 1 TABLET BY MOUTH EVERY 4 HOURS NEEDED 12/19 completed Not Available Not Available Not Available terbinafine HCl 250 mg tablet Take 1 tablet every day by oral route as directed for 30 days. 03/22 completed Not Available Not Available Not Available alprazolam 0.5 mg tablet TAKE 1 TABLET THREE TIMES A DAY NEEDED 10/16 completed Not Available Not Available Not Available amoxicillin 875 mg tablet TK 1 T PO Q 12 H FOR 7 DAYS active Not Available Not Available No t Available citalopram 20 mg tablet 10/14 completed Not Available Not Available Not Available famotidine 20 mg tablet TAKE 1 TABLET BY MOUTH EVERY 12 HOURS FOR 10 DAYS 06/08 completed Not Available Not Available Not Available amitriptyli ne 25 mg tablet TAKE 1 TABLET BY MOUTH EVERY DAY AT BEDTIME 12/31 completed Not Available Not Available Not Available prednisolon e acetate 1 % eye drops,suspe nsion SHAKE LIQUID AND INSTILL 1 DROP IN RIGHT EYE THREE TIMES DAILY AFTER SURGERY 12/19 completed Not Available Not Available Not Available methocarbam ol 750 mg tablet TAKE 1 TABLET BY MOUTH THREE TIMES DAILY NEEDED 06/28 completed Not Available Not Available Not Available pravastatin 10 mg tablet active Not Available Not Available Not Available ropinirole 0.25 mg tablet Take 1 tablet 3 times a day by oral route for 30 days. active Not Available Not Available No t Available Kenalog 10 mg/mL suspension for injection Take 20 mg by injection route. 12/[address] [facility]: [phone] Not Available Not Available Not Available amitriptyli ne 10 mg tablet TAKE ONE TABLET DAILY AT BEDTIME 10/16 completed Not Available Not Available Not Available levothyroxi ne 50 mcg tablet TAKE 1 TABLET BY MOUTH DAILY 09/13 completed Not Available Not Available Not Available hydrocodone 7.5 mg-acetamin ophen 325 mg tablet TAKE 1 TABLET EVERY 4-6 HOURS NEEDED. MAX OF 5 PER DAY active Not Available Not Available No t Available paroxetine 30 mg tablet 10/16 completed Not Available Not Available Not Available paroxetine 20 mg tablet TAKE 1 TABLET BY MOUTH EVERY DAY WITH 40 MG TABLET active Not Available Not Available No t Available pantoprazol e 40 mg tablet,shanice yed release TAKE 1 TABLET BY MOUTH EVERY MORNING FOR 4 WEEKS active Not Available Not Available No t Available esomeprazol e magnesium 40 mg capsule,del ayed release TAKE ONE CAPSULE BY MOUTH DAILY BEFORE A MEAL 06/08 completed Not Available Not Available Not Available triamcinolo ne acetonide 0.1 % topical ointment APPLY THIN LAYER TOPICALLY TO THE AFFECTED AREA TWICE DAILY active Not Available Not Available No t Available buspirone 10 mg tablet 08/16 completed Not Available Not Available Not Available clotrimazol e-betametha sone 1 %-0.05 % topical cream active Not Available Not Available Not Available orphenadrin e citrate ER 100 mg tablet,exte nded release active Not Available Not Available Not Available oxybutynin chloride ER 5 mg tablet,exte nded release 24 hr Take 1 tablet every day by oral route. active Not Available Not Available No t Available gabapentin 300 mg capsule 08/16 completed Not Available Not Available Not Available omeprazole 20 mg capsule,del ayed release TAKE 1 CAPSULE DAILY ( BEFORE A MEAL ) 10/16 completed Not Available Not Available Not Available Banophen 25 mg capsule TAKE ONE CAPSULE BY MOUTH EVERY 6 HOURS NEEDED 06/08 completed Not Available Not Available Not Available diclofenac sodium 75 mg tablet,shanice yed release TAKE 1 TABLET BY MOUTH TWICE DAILY 04/16 completed Not Available Not Available Not Available mirtazapine 15 mg tablet TAKE ONE TABLET DAILY AT BEDTIME 08/16 completed Not Available Not Available Not Available gabapentin 100 mg capsule TAKE 1 CAPSULE THREE TIMES A DAY 08/16 completed Not Available Not Available Not Available clobetasol 0.05 % topical ointment APPLY TOPICALLY TO THE AFFECTED AREA TWICE DAILY FOR 2 WEEKS active Not Available Not Available No t Available lorazepam 1 mg tablet TAKE ONE TABLET 3 TIMES DAILY NEEDED 10/16 completed Not Available Not Available Not Available ibuprofen 600 mg tablet active Not Available Not Available Not Available polyethylen e glycol 3350 17 gram/dose oral powder TAKE ENTIRE BOTTLE DIRECTED BY OFFICE FOR COLON PREP 10/16 completed Not Available Not Available Not Available levofloxaci n 500 mg tablet 10/16 completed Not Available Not Available Not Available methylpredn isolone 4 mg tablets in a dose pack FOLLOW PACKAGE DIRECTION S 06/08 completed Not Available Not Available Not Available paroxetine 40 mg tablet TAKE 1 TABLET BY MOUTH EVERY DAY active Not Available Not Available No t Available ketoconazol e 2 % topical cream APPLY TOPICALLY TO THE AFFECTED AREA ON TOENAILS ONCE DAILY 06/08 completed Not Available Not Available Not Available ondansetron 4 mg disintegrat ing tablet DISSOLVE 1 TABLET ON THE TONGUE EVERY 6 HOURS NEEDED 06/08 completed Not Available Not Available Not Available cefdinir 300 mg capsule 10/14 completed Not Available Not Available Not Available fluoxetine 20 mg capsule TAKE 1 CAPSULE DAILY IN THE MORNING 10/21 completed Not Available Not Available Not Available metformin ER 500 mg tablet,exte nded release 24 hr TAKE 2 TABLETS BY MOUTH EVERY DAY WITH FOOD 03/12 completed Not Available Not Available Not Available doxycycline hyclate 100 mg tablet Take 1 tablet twice a day by oral route for 7 days. active Not Available Not Available No t Available dicyclomine 10 mg capsule TAKE 1 CAPSULE BY MOUTH THREE TIMES DAILY NEEDED FOR CRAMPS 06/08 completed Not Available Not Available Not Available naproxen 500 mg tablet TAKE ONE TABLET TWICE DAILY 10/14 completed Not Available Not Available Not Available amoxicillin 875 mg-potassiu m clavulanate 125 mg tablet TAKE 1 TABLET BY MOUTH EVERY 12 HOURS active Not Available Not Available No t Available buspirone 15 mg tablet 10/14 completed Not Available Not Available Not Available hydroxyzine pamoate 25 mg capsule TAKE 1 CAPSULE DAILY NEEDED FOR ANXIETY 08/16 completed Not Available Not Available Not Available escitalopra m 10 mg tablet 10/16 completed Not Available Not Available Not Available escitalopra m 20 mg tablet TAKE ONE TABLET DAILY IN THE MORNING 10/16 completed Not Available Not Available Not Available metaxalone 800 mg tablet active Not Available Not Available Not Available moxifloxaci n 0.5 % eye drops 10/16 completed Not Available Not Available Not Available Senna Plus 8.6 mg-50 mg tablet TAKE ONE TABLET DAILY 10/16 completed Not Available Not Available Not Available aripiprazol e 5 mg tablet Take 1 tablet(s) every day by oral route. 12/31 completed Not Available Not Available Not Available bupropion HCl XL 150 mg 24 hr tablet, extended release 10/16 completed Not Available Not Available Not Available Vitamin D 03/22 completed Not Available Not Available Not Available Paxil 03/22 completed Not Available Not Available Not Available Synthroid 03/22 completed Not Available Not Available Not Available Xanax 01/10 completed Not Available Not Available Not Available Vitamin B12 03/22 completed Not Available Not Available Not Available lidocaine (PF) 10 mg/mL (1 %) injection solution In office injection administe red by the provider 01/[address] [facility]: [phone] Not Available Not Available Not Available aripiprazol e 2 mg tablet TAKE 1 TABLET BY MOUTH EVERY DAY 03/22 completed Not Available Not Available Not Available Lidocream 4 % topical kit Apply 1 applicati on twice a day by topical route for 7 days. 01/27 completed Not Available Not Available Not Available Golytely 236 gram-22.74 gram-6.74 gram-5.86 gram oral solution DIRECTED 05/28 completed Not Available Not Available Not Available FeroSul 325 mg (65 mg iron) tablet TAKE 1 TABLET BY MOUTH AT BEDTIME 06/28 completed Not Available Not Available Not Available omeprazole 20 mg tablet,shanice yed release TAKE 1 TABLET BY MOUTH DAILY 12/18 completed Not Available Not Available Not Available quetiapine ER 50 mg tablet,exte nded release 24 hr TAKE ONE TABLET DAILY AT BEDTIME FOR 4 DAYS THEN TAKE TWO TABLETS DAILY AT BEDTIME 10/16 completed Not Available Not Available Not Available Gavilyte-C 240 gram-22.72 gram-6.72 gram-5.84 gram oral solution MIX AND DRINK DIRECTED 06/08 completed Not Available Not Available Not Available butalbital- acetaminoph en-caffeine 50 mg-300 mg-40 mg capsule TAKE 1 TO 2 CAPSULES BY MOUTH EVERY 6 HOURS NEEDED 06/01 completed Not Available Not Available Not Available Latuda 40 mg tablet active Not Available Not Available No t Available Latuda 80 mg tablet active Not Available Not Available No t Available Xarelto 10 mg tablet 06/28 completed Not Available Not Available Not Available ropivacaine (PF) 5 mg/mL (0.5 %) injection solution Take 20 mg by injection route. 12/[address] [facility] [phone] Not Available Not Available Not Available lidocaine 5 % topical ointment active Not Available Not Available Not Available Latuda 120 mg tablet active Not Available Not Available No t Available butalbital 50 mg-acetamin ophen 300 mg-caffeine 40 mg-codeine 30 mg cap 06/08 completed Not Available Not Available Not Available Fetzima 20 mg capsule,ext ended release active Not Available Not Available Not Available Rexulti 0.5 mg tablet 1 po qday, titrate up to 2 mg 12/18 completed Not Available Not Available Not Available Rexulti 2 mg tablet TAKE 1 TABLET BY MOUTH EVERY DAY 03/22 completed Not Available Not Available Not Available ID NOW COVID-19 Test Kit USE DIRECTED 12/18 completed Not Available Not Available Not Available Qulipta 60 mg tablet Take 1 tablet every day by oral route for 30 days. active Not Available Not Available No t Available Paxlovid 300 mg (150 mg x 2)-100 mg tablets in a dose pack TAKE DIRECTED 12/18 completed Not Available Not Available Not Available Vitals Date Recorded Body height Body mass index (BMI) Body weight Body temperature Heart rate Oxygen saturation Oxygen saturation in Arterial blood by Pulse oximetry Systolic blood pressure Diastolic blood pressure Provider Name and Address Organization Details Last Updated DateTime 4 160.02 cm 22.3 kg/m2 69352.6 4 g 96.9 [degF] 90 /min 97 % 97 % 158 mm[Hg] 98 mm[Hg] Romina Corcoran RN [place] - [facility] [place] [employer] [facility] 4 12:14:00 Date Recorded Body height Body mass index (BMI) Body weight Body temperature Heart rate Oxygen saturation Oxygen saturation in Arterial blood by Pulse oximetry Systolic blood pressure Diastolic blood pressure Provider Name and Address Organization Details Last Updated DateTime 4 160.02 cm 26 kg/m2 26082.0 8 g 97.9 [degF] 90 /min 98 % 98 % 116 mm[Hg] 70 mm[Hg] ZEINA Townsend - [facility] [employer] 4 11:16:09 Date Recorded Body height Body mass index (BMI) Body weight Body temperature Heart rate Oxygen saturation Oxygen saturation in Arterial blood by Pulse oximetry Systolic blood pressure Diastolic blood pressure Provider Name and Address Organization Details Last Updated DateTime 5 160.02 cm 24.6 kg/m2 23027.3 4 g 98.6 [degF] 88 /min 97 % 97 % 138 mm[Hg] 72 mm[Hg] ZEINA Townsend - [place] [employer] 5 10:57:24 Social History Question Answer Notes LastModified by Organization Details LastModified Time Tobacco Smoking Status Former Smoker Not Available [facility] 06/06/2022 00:46:05 Do You Have An Advance Directive? Yes MIGRATION.0301 [id number] Information not available 06/06/2022 What Is Your Level Of Alcohol Consumption? None MIGRATION.0301 [id number] Information not available 06/06/2022 Are You Blind Or Do You Have Difficulty Seeing? No MIGRATION.0301 [id number] Information not available 06/06/2022 What Is Your Level Of Caffeine Consumption? Moderate MIGRATION.0301 [id number] Information not available 06/06/2022 In The 14 Days Before Symptom Onset, Have You Had Close Contact With A Person Who Is Under Investigation For COVID-19 While That Person Was Ill? No MIGRATION.0301 [id number] Information not available 06/06/2022 Are You Deaf Or Do You Have Serious Difficulty Hearing? No MIGRATION.0301 240232 Information not available 06/06/2022 What Type Of Diet Are You Following? VEGETARIAN MIGRATION.0301 473130 Information not available 06/06/2022 Which Illicit Or Recreational Drugs Have You Used? Medical Marijuana MIGRATION.0301 357053 Information not available 06/06/2022 Have There Been Any Changes To Your Family Or Social Situation? No MIGRATION.0301 [id number] Information not available 06/06/2022 Do You Use Insect Repellent Routinely? No MIGRATION.0301 602007 Information not available 06/06/2022 Where Do You Live? [facility] MIGRATION.0301 [id number] Information not available 06/06/2022 What Was The Date Of Your Most Recent Tobacco Screening? 03/21/2022 MIGRATION.0301 [id number] Information not available 06/06/2022 What Is Your Relationship Status? MIGRATION.0301 [id number] Information not available 06/06/2022 Do You Use Your Seat Belt Or Car Seat Routinely? Yes MIGRATION.0301 897112 Information not available 06/06/2022 Do You Have Smoke And Carbon Monoxide Detectors In Your Home? Yes MIGRATION.0301 374523 Information not available 06/06/2022 Do You Participate In Social Media? Yes Sometimes [email or web address] Information not available 08/09/2022 Do You Feel Stressed (tense, Restless, Nervous, Or Anxious, Or Unable To Sleep At Night)? [id number] MIGRATION.0301 [id number] Information not available 06/06/2022 Do You Use Any Illicit Or Recreational Drugs? Yes MIGRATION.0301 217950 Information not available 06/06/2022 Do You Use Sunscreen Routinely? No MIGRATION.0301 190792 Information not available 06/06/2022 Has Tobacco Cessation Counseling Been Provided? No MIGRATION.0301 571260 Information not available 06/06/2022 Have You Used IV Drugs? No MIGRATION.0301 826298 Information not available 06/06/2022 Do You Have Any Dietary Restrictions? Yes MIGRATION.0301 910047 Information not available 06/06/2022 Do You Or Have You Ever Used Any Other Forms Of Tobacco Or Nicotine? No MIGRATION.0301 028934 Information not available 06/06/2022 Sex: Female Functional Status Question Answer Note LastModified by Organizat ion Details LastModified Time Do you have difficulty walking or climbing stairs? Yes MIGRATION.[id number] 026 Information not available 06/06/2022 Do you have transportation difficulties? No MIGRATION.7419684 026 Information not available 06/06/2022 Are you able to walk? YESWOREST MIGRATION.8085344 026 Information not available 06/06/2022 Do you have difficulty doing errands alone? No MIGRATION.3023353 026 Information not available 06/06/2022 Are you able to care for yourself? Yes MIGRATION.4832051 026 Information not available 06/06/2022 Do you have difficulty dressing or bathing? No MIGRATION.3350419 026 Information not available 06/06/2022 What is your exercise level? Occasional MIGRATION.6207195 026 Information not available 06/06/2022 Mental Status Question Answer Note LastModified by Organizat ion Details LastModified Time Do you have difficulty concentrating, remembering or making decisions? Yes MIGRATION.[id number] 6 Information not available 06/06/2022 Family History Relationship Description Onset Age of this Age Resolved Age Notes LastModified by Organization Details LastModified Time Mother Heart disease MIGRATION.561 [id number] Not available 06/06/2022 00:47:37 Mother Arthritis MIGRATION.986 [id number] Not available 06/06/2022 00:47:37 Mother Osteoporosis MIGRATION.0 30 [id number] Not available 06/06/2022 00:47:37 Mother Blood coagulation disorder MIGRATION.991 [id number] Not available 06/06/2022 00:47:38 Brother Heart disease MIGRATION.613 [id number] Not available 06/06/2022 00:47:38 Brother Family history of stroke MIGRATION.685 [id number] Not available 06/06/2022 00:47:38 Brother Hypertensive disorder MIGRATION.326 [id number] Not available 06/06/2022 00:47:38 Brother Diabetes mellitus MIGRATION.296 [id number] Not available 06/06/2022 00:47:38 Brother Family history of malignant neoplasm two [email or web address] Not available 2022 10:17:27 Father Family history of malignant neoplasm MIGRATION.494 [id number] Not available 06/06/2022 00:47:38 Father Diabetes mellitus MIGRATION.283 [id number] Not available 06/06/2022 00:47:38 Father Heart disease MIGRATION.862 [id number] Not available 06/06/2022 00:47:38 Sister Heart disease MIGRATION.519 [id number] Not available 06/06/2022 00:47:38 Unspecified Relation Heart disease mom's side of family [email or web address] Not available 12/31/2022 10:17:52 Medical History Condition Response BACK / NECK PROBLEMS Y FEMALE PROBLEMS / INFECTIONS Y DEPRESSION (INCLUDING POST ) Y ULCERS Y HEADACHES/MIGRAINES Y CANCER: SPECIFY N ANXIETY DISORDER Y Gynecological History Statement/Question Response Abnormal Pap N Date of Last Mammogram 11/16/2019 Most Recent Bone Density 07/08/2020 Date of Last Pap 10/22/2019 Date of Last Pap Smear 12/19/2020 Current Control Method Menopause Age at Menarche 11 Most Recent Mammogram 01/16/2021 Obstetrics History GPAL:G 2 P 2 0 0 2 Type Value Full Term 2 Living 2 Total 2 Past Encounters Encounter ID Performer Location Encounter Start Date Encounter Closed Date Diagnosis/Indication Diagnosis SNOMED-CT Code Diagnosis ICD10 Code Diagnosis Note [id number] [facility] [place] [address] [address] [facility] [address] [place] [address] 06/08/2020 00:00:00 06/08/2020 10:35:40 [id number] [facility] [place] [address] [place] [address] 06/30/2020 00:00:00 06/30/2020 15:51:12 [id number] [facility] [address] [place] [address] 07/11/2020 00:00:00 07/11/2020 10:33:31 [id number] [facility] [place] [address] [place] [address] 07/28/2020 00:00:00 07/28/2020 14:28:06 [id number] [facility] [place] [address] [place] [address] 08/25/2020 00:00:00 08/25/2020 15:33:58 [id number] [facility] [place] [address] [place] [address] 10/05/2020 00:00:00 10/05/2020 11:35:59 [id number] [facility] [place] [address] [place] [address] 11/03/2020 00:00:00 11/03/2020 10:51:05 [id number] _ATHENA_M IGRATION_ DEFAULT_1 _1 , 12/19/2020 00:00:00 12/19/2020 15:48:56 [id number] [facility] [address] [place] [address] 01/10/2021 00:00:00 01/10/2021 11:48:03 [id number] _ATHENA_M IGRATION_ DEFAULT_1 _1 , 01/16/2021 00:00:00 01/16/2021 16:35:01 [id number] [facility] [place] [address] [place] [address] 02/28/2021 00:00:00 02/28/2021 14:24:44 [id number] [facility] [place] [address] [place] [address] 03/21/2021 00:00:00 03/21/2021 14:40:57 [id number] [facility] [place] [address] [place] [address] 04/18/2021 00:00:00 05/03/2021 09:35:39 [id number] [facility] [place] [address] [place] [address] 05/30/2021 00:00:00 05/30/2021 17:25:54 [id number] [facility] [address] [place] [address] [address] [place] [address] 06/28/2021 00:00:00 06/28/2021 12:06:29 [id number] [facility] [place] [address] [place] [address] [address] [place] [address] 10/05/2021 00:00:00 10/05/2021 17:40:44 [id number] [facility] [address] [place] [address] [place] [address] 11/28/2021 00:00:00 11/28/2021 15:33:44 [id number] [facility] [address], [address] [address] 12/07/2021 00:00:00 12/07/2021 10:05:10 [id number] [facility] [place] [address] [place] [address] 12/18/2021 00:00:00 12/18/2021 09:48:57 [id number] [facility] [place] [address] [place] [address] 12/28/2021 00:00:00 01/04/2022 14:09:43 [id number] [facility] [place] [address] [place] [address] 02/26/2022 00:00:00 02/26/2022 11:49:03 [id number] [facility] [place] [address] [facility] [address] [place] [address] 03/08/2022 00:00:00 03/08/2022 09:18:53 [id number] [facility] [address] [facility] [address] [place] [address] 03/22/2022 00:00:00 04/06/2022 07:46:03 [id number] Trinidad Dumont MD [facility] Primary Care [facility] [address] [facility] [address] [place] [address] 06/25/2022 12:19:29 06/25/2022 13:09:28 Gastroesophageal reflux disease without esophagitis 586524444 K21.9 continue pantoprazo le 40 mg bidadd famotidine 40 mg dailyGI referral givenf/u in 4 weeks Malaise and fatigue 2717 27912 R53.81 R53.83 R63.5 check labs Depressive disorder 3548 9007 F32.A encouraged pt to make appt with her counselor and psychiatri stf/u in 2 weeks or sooner if needed Hyperlipidemia 38658576 E78.5 Z79.899 Z13.1 Hypothyroidism 55498953 E03.9 Iron defic iency anemia 86354702 D50.9 [id number] Trinidad Dumont MD [facility] Primary Care [facility] [address] [facility] [address] [place] [address] 07/09/2022 17:09:05 07/09/2022 17:47:04 Prediabetes 722633508 R73.03 start metformin in 1 month if stomach is feeling better Gastroesop hageal reflux disease without esophagitis 677865240 K21.9 no improvemen tok to d/c famotidine continue pantoprazo le 40 mg bidadd sucralfate GI referral given at last appt, pt will call to make apptf/u in 4 weeks Thrombocytosis 2420671 D 75.839 Liver enzy mes level above reference range 301039470 R74.01 [id number] Trinidad Dumont MD [facility] Primary Care [facility] [address] [facility] [address] [place] [address] 08/09/2022 11:56:18 08/09/2022 12:45:41 Gastric ulcer 179939101 K25.9 EGD 07/20/22 showed chronic gastric ulcer and hiatal herniaAvoi d greasy/spi cy/acidic foodEat small, frequent mealsconti nue esomeprazo le 40 mg daily and sucralfate 1 gram q 6 hoursf/u in 4 weeks or sooner if needed [id number] Antoine Alvarez DPM [facility] Podiat[facility] [place] [address] [place] [address] Rd, [facility] [address] [place] [address] 08/28/2022 11:44:59 08/28/2022 15:56:05 Onychomycosis of toenails 144858441 B35.1 patient may continue topical ketoconazo le to prevent reinfectio nfollow-up as needed [id number] Trinidad Dumont MD [facility] Primary Care [facility] [address] [facility] [address] [place] [address] 09/12/2022 09:33:33 09/12/2022 10:11:24 Hypothyroidism 53654656 E03.9 Hyperlipidemia 63703577 E78.5 Z79.899 Iron defic iency anemia 68995113 D50.9 Prediabetes 714067367 R7 3.03 most recent a1c was 6.2she has been working out and watching diet carefullyb egin metformin ER 500 mg daily with food, increase to 2 per day after 1 week if no GI s/ef/u in 4 weeks Gastric ulcer 116568429 K25.9 EGD 07/20/22 showed chronic gastric ulcer and hiatal hernia-muc h improved nowAvoid greasy/spi cy/acidic foodEat small, frequent mealsconti nue esomeprazo le 40 mg daily and sucralfate 1 gram q 6 hours [id number] Trinidad Dumont MD [facility] Primary Care [facility] [address] [facility] [address] [place] [address] 09/27/2022 14:46:05 09/27/2022 15:16:30 Liver enzymes level above reference range 463125403 R74.01 [id number] Trinidad Dumont MD [facility] Care [facility] [address] [facility] [address] [place] [address] 10/24/2022 10:30:07 10/24/2022 13:33:40 Gastric ulcer 169557714 K25.9 sees GI, has f/u appt yesterday Hypothyroidism 29017672 E03.9 TSH not at goal, levothyrox ine was decreased to 25 mcgrepeat labs in 3 months Prediabetes 122902508 R7 3.03 most recent a1c improved at 5.5continu e metformin Er 500 mg 2 tabs daily, continue exercise and dietf/u in 3 months [id number] Rk Duffy MD [facility] [place] [address] [place] [address] 10/29/2022 09:17:45 10/29/2022 10:15:52 History of right total knee replacement 1514302932 692534 Z96.651 Pain of ri ght knee joint 2841389313 47754 M25.561 Pain in ri ght hip joint 2358052595 98119 M25.551 Trochanter ic bursitis of right hip 6986694062 47884 M70.61 [id number] Rk Duffy MD [facility] [place] [address] [place] [address] 11/26/2022 11:09:27 11/26/2022 11:31:55 Pain in right hip joint 2779964290 83594 M25.551 Trochanter ic bursitis of right hip 4481140607 86259 M70.61 Pain in ri ght sacroiliac joint 4896863727 5776216 M53.3 [id number] Rk Duffy MD [facility] [place] [address] [place] [address] 12/31/2022 10:00:28 12/31/2022 10:46:12 Pain in right hip joint 9172722792 89754 M25.551 Trochanter ic bursitis of right hip 0994094063 11460 M70.61 Pain in ri ght sacroiliac joint 7963669739 6586742 M53.3 Low back pain 630409445 M54.50 Spinal ender nosis of lumbar region 90690275 M48.286 [id number] Trinidad Dumont MD [facility] Primary Care [facility] [address] [facility] [address] [place] [address] 03/12/2023 12:29:54 03/12/2023 13:01:09 Prediabetes 654172769 R73.03 most recent a1c improved at 5.5continu e metformin Er 500 mg 2 tabs daily, continue exercise and dietf/u in 3 months update 03/12/23: stop metformin due to GI s/echeck a1c Mixed anxi ety and depressive disorder 252514962 F41.8 not in good controlinc rease paroxetine 40 mg dailyf/u in 4 weeks or sooner if needed Hyperlipidemia 98427030 E78.5 Z79.899 Hypothyroidism 09016913 E03.9 check TSH, will adjust levothyrox ine up if needed to get to goal of 0.5-2 Iron defic iency anemia 05050253 D50.9 Vitamin D deficiency 347 07485 E55.9 Renewal of prescription 390266074 Z76.0 [id number] Trinidad Dumont MD [facility] Primary Care [facility] [address] [facility] [address] [place] [address] 04/16/2023 09:48:46 04/16/2023 10:29:30 Iron deficiency 10240582 E61.1 has h/o ulcer with epigastric painGI referral givenconti nue esomeprazo le 40 mg dailyd/c anti-infla mmatoriesf /u in 6 weeks Hypothyroidism 14800702 E03.9 TSH is low, having weight gain, fatigue, irritabili ty, anxiety, GERDd/c levothyrox ine 25 mcg dailyf/u in 6 weeks or sooner if needed [id number] Mee Miller MD [facility] General Surgery [address] [place] [address] 05/01/2023 11:03:22 05/01/2023 11:47:47 [place] 2958244 K92.1 Abdominal bloating 97638 9008 R14.0 Screening for malignant neoplasm of colon 779430955 Z12.11 [id number] Trinidad Dumont MD [facility] Primary Care [address] [place] [address] 05/28/2023 12:03:56 05/28/2023 12:51:50 Iron deficiency anemia 30855238 D50.9 K21.9 EGD 05/13/23 showed healing ulcerconti nue PPI Hypothyroidism 92558682 E03.9 TSH is low, having weight gain, fatigue, irritabili ty, anxiety, GERDd/c levothyrox ine 25 mcg dailyf/u in 6 weeks or sooner if needed update 05/28/23: no change, check TSH and remain off if TSH is <10 [id number] Trinidad Dumont MD [facility] Primary Care [address] [place] [address] 07/16/2023 11:38:54 07/16/2023 12:36:37 Iron deficiency anemia 34430714 D50.9 K21.9 EGD 05/13/23 showed healing ulcerconti nue PPI update 07/16/23: has been off iron replacemen trecheck iron to be sure it stable Hypothyroidism 08013565 E03.9 TSH is low, having weight gain, fatigue, irritabili ty, anxiety, GERDd/c levothyrox ine 25 mcg dailyf/u in 6 weeks or sooner if needed update 05/28/23: no change, check TSH and remain off if TSH is <10 update 07/16/23: ok to remain off levothyrox ine for now-pt feels it does not help her energy or weight. She is very frustrated with weight gain. Endocrinol ogy referral given Prediabetes 915776674 R7 3.03 most recent a1c improved at 5.5continu e metformin Er 500 mg 2 tabs daily, continue exercise and dietf/u in 3 months update 03/12/23: stop metformin due to GI s/echeck a1c Vitamin D deficiency 347 59537 E55.9 Hyperlipidemia 90409933 E78.5 Z79.850 [id number] JORDI Brian [facility] Primary Care [address] [place] [address] 08/27/2023 14:21:43 08/27/2023 17:20:28 Abdominal pain 34783678 R10.9 -pain noted to right and left ribs-hx of gastric ulcer per pt-takes esomeprazo le daily-was told that she has a hiatal hernia-low appetite, can only eat about 4 bites-eats dark chocolate, jessica crackers, cashews-ru ling out ulcer with EGD Hiatal hernia 80842635 K 44.9 -noted on general surgeon referral-g eneral surgeon referral given Gastroesop hageal reflux disease without esophagitis 726289941 K21.9 -refill famotidine [id number] JORDI Brian [facility] Primary Care [address] [address] 09/06/2023 09:21:40 09/06/2023 10:35:44 [id number] JORDI Brian [facility] Primary Care [address] [address] 12/03/2023 12:07:45 12/03/2023 12:39:33 Adult health examination 436572365 Z00.00 Screening for disorder 215536962 Z13.9 Thyroid di sorder screening 404049082 Z13.29 Diabetes m ellitus screening 383225224 Z13.1 Anemia screening 7274223 07 Z13.0 Hyperlipid emia screening 917602096 Z13.220 Hiatal hernia 27377775 K 44.9 -noted on general surgeon referral-g eneral surgeon referral given Anxiety 86287951 F41.9 [id number] JORDI Cortez [facility] Primary Care Esau menon [address] [place] [address] 12/25/2023 15:07:33 12/25/2023 15:25:24 [id number] JORDI Cortez [facility] Primary Care Esau menon [address] [place] [address] 02/25/2024 11:05:47 02/25/2024 11:47:27 Anxiety 06452409 F41.9 [place] UTD.Discus sed referral to psych, patient refuses at this time. Uniform ab dominal distention 558349618 R14.[address] Hollins, will continue to follow up as directed [id number] JORDI Cortez [facility] Primary Care Esau menon [address] [place] [address] 06/08/2024 10:49:15 06/08/2024 11:32:30 Anxiety 34760937 F41.9 [place] refill: 05/26/24UD S will be updated todaylast appt: 06/08/24ne xt appt: 3 months sooner if needed Long-term drug therapy 822517943 Z79.891 Fatigue 09612748 R53.83 Will check labs as listed below. Prediabetes 557708999 R7 3.03 Will check labs as listed below. Liver enzy mes level above reference range 548743357 R74.01 Will check labs as listed below. Health Concerns Section Related Observation LastModified by Organization Detai ls LastModified Time None Recorded Concern Status LastModified by Organization Details LastModified Time None Recorded Advance Directives Directive Y: Payers Encounter Date Sequence Insurance Name Policy Number Policy Zapien Covered Member ID Zapien Member ID Guarantor Name 09/06/2023 1 [employer] (MEDICARE REPLACEMENT PPO) [id number] 1 Ngozi J Rippy [id number] Ngozi J Rippy 12/03/2023 1 [employer] (MEDICARE REPLACEMENT PPO) [id number] 1 Ngozi J Rippy [id number] Ngozi J Rippy 12/25/2023 1 [employer] (MEDICARE REPLACEMENT PPO) [id number] 1 Ngozi J Rippy [id number] Ngozi J Rippy 02/25/2024 1 [employer] (MEDICARE REPLACEMENT PPO) [id number] 1 Ngozi J Rippy [id number] Ngozi J Rippy 06/08/2024 1 [employer] (MEDICARE REPLACEMENT PPO) [id number] 1 Ngozi J Rippy [id number] Ngozi J Rippy Notes Date Note Type Note Provider Name and Address Organization Details Recorded Time 12/03/2023 text/html pt is here for physical JORDI Brian [address], [place], [address], [email or web address] 12/03/2023 14:06:43 02/25/2024 text/html Patient is a 68 year old female that presents to the office for 3 month follow up. Patient does not feel that anxiety is well controlled at this time however she does not wish to see psychiatry as she went to one before and it did not help. Patient believes anxiety is seasonal related and it will improve. Patient also reports recently switching churches and this has added to her anxiety. Patient denies SI/HI. Patient reports abdominal distention, has been to GI, had CT in November, will follow up with GI. JORDI Cortez [address], [place], [address], [email or web address] 02/25/2024 17:58:13 06/08/2024 text/html Patient is a 68 year old female that presents to the office for 3 month follow up. Patient is doing well on current dose of Alprazolam, patient does not always take the maximum daily quantity. Denies SI/HI. Patient reports worsening migraines, followed up with neurologist and had her medications changed. Patient is currently taking Qulipta 60mg daily and Rizatriptan 10mg as needed. Patient reports increased fatigue over the last couple of months, patient reports this is very abnormal for her. Patient discontinued Pantoprazole. JORDI Cortez [address], [place], [address], [place] [facility] 06/08/2024 13:43:38 OBGyn Episode No OBEpisode recorded.
--- OUTSIDE RECORDS SUMMARY | 2024-07-19 09:15 | XMS_ITS | Continuity of Care Document ---
Author Organization [facility] Address [address] [place] [address] Phone Care Team Providers Care Automatic Lehr Operator Name Role Phone Walton OD, Yoav Unavailable Unavailable Procedures Procedure Date Post-op Follow-up Visit Post-op Follow-up Visit Remove Cataract, Insert Lens IOLMaster Office/outpatient Visit, Est Eye Exam, New Patient Refraction Advance Directives Directive Yes / No Effective Date File Name No Information Encounters Encounter Description Practice Location Reason(s) For Visit Diagnoses Date Provider Providers Copied on Encounter [facility], [address] [place] [address] [address], [place], [place], [id number], tel:[phone] SEC [facility] No Information 0-201 0 Walton OD Yoav. [address] , [address], [place], [place], [facility], . tel:[phone] [facility], [address] [place] [address] [address], [place], [place], [address], [place] tel:[phone] [facility] No Information 9-201 0 Doisy Edward. [address], [address], [place], [address], [place]. tel:[phone] [facility], [address] [place] [address] [address], [place], [place], [address], [place] tel:[phone] [facility] No Information 1 8-201 0 Fadia Zaidi. [facility] , [address], [place], [place], [facility], [place]. tel:[phone] [facility], [address] [place] [address] [address], [place], [place], [address], tel:[phone] SEC [facility] No Information 0-201 0 Fadia Zaidi. [address] [place], [place] [address]ate [address], [address], [place], [place], [facility], [place]. tel:[phone] Referring Provider: Dejuan Rehman, [address] [place], [place] [address]ate [address], [place], [place], [facility]. tel:[phone] Office/outpat ient Visit, [facility], [address] [facility] [address], [place], [place], [address], [place] tel:[phone] [facility] No Information Nov-0 1-201 0 Fadia Zaidi. [address] [place], [place] [address]ate [address], [address], [place], [facility], [place]. tel:[phone] [facility], [address] [place] [address] [address], [place], [place], [address], [place] tel:[phone] [facility] No Information Dec-2 0-201 0 Fadia Zaidi. [address] [place], [place] [address]ate [address], [address], [place], [place], [facility], [place]. tel:[phone] Family History Family Member Type Diagnosis Age At Onset No Information Payers Payer name Insurance type Covered democrat ID Authoriza tion(s) No Information Social History Type Description Quantity Date Captured Comments Sex Female Smoking Status No Information Chief Complaint And Reason For Visit No Information Reason For Referral Reason For Referral No Information History Of Present Illness Encounter Date Complaint History Of Prese nt Illness No Information Functional Status Date Functional Assessmen t No Information Instructions Date Instruction Additional Infor mation No Information Assessments Type Assessment Date No Information Patient Care Teams Name Effective Dates (start - stop) Status Members No Information
--- OUTSIDE RECORDS SUMMARY | 2024-07-19 09:15 | XMS_ITS | Clinical Summary ---
Author Organization [facility] Address [address], [facility] [address] [place] [address] Phone Care Team Providers Care Unleavened Dough Mixer Name Role Phone Moses Cox MD Primary Care Provider [phone] Allergies No known active allergies Medications levothyroxine (SYNTHROID) 50 MCG Tablet Take 50 mcg by mouth daily. Active Cyanocobalamin (B-12 PO) Take by mouth. Activ e Cholecalciferol (VITAMIN D PO) Take by mouth. Active PARoxetine (PAXIL) 30 MG Tablet 9 Active polyethylene glycol (GLYCOLAX, MIRALAX) Pack Take 1 Packet by mouth 2 times daily. Dissolve in 4-8 oz of liquid. 60 Packet 3 9 Active Additional Information Patient not taking.Reported on 12/21/2019 ALPRAZolam (XANAX PO) Take by mouth. Acti ve pantoprazole (PROTONIX) 40 MG Tablet Delayed Response Take 1 Tab by mouth every 12 hours. 180 Tab 3 0 Active Ferrous Sulfate 325 (65 Fe) MG Tablet Delayed Response ferrous sulfate 325 mg (65 mg iron) tablet TAKE ONE TABLET DAILY AT BEDTIME Active Active Problems Problem Noted Date Diagnosed Date Irritable bowel syndrome with constipation 12/20 Gastric ulcer without hemorrhage or perforation 12/21/2019 Family History Medical History Relation Name Comments Cancer Brother 1 liver Cancer Brother 2 colon Cancer Father lung, brain Diabetes Father Heart Attack Father Heart Attack Mother Diabetes Sister Relation Name Status Comments Brother 1 Brother 2 Father Mother Sister Social History Tobacco Use Types Packs/Day Years Used Date Smoking Tobacco: Former Cigarettes 1 15 0 07/05/1964 - 07/06/1979 Smokeless Tobacco: Never Tobacco Cessation:Counseling Given: No Alcohol Use Standard Drinks/Week Comments Yes 0 (1 standard drink = 0.6 oz pur e alcohol) Rare Sexually Active Control Partners Comments Yes Comments No Sex and Gender Information Value Date Recorded Sex Assigned at Not on file Legal Sex Female 11:27 PM CDT Gender Identity Not on file Sexual Orientation Not on file Occupation Industry Job Start Date Job End Date [employer] Not on file Not on file Not on adriano e Last Filed Vital Signs Vital Sign Reading Time Taken Comments Blood Pressure 130/68 12/21/2019 12:55 PM CDT Pulse 89 12/21/2019 12:55 PM CDT Temperature 37.1 C (98.7 F) 12/21/2019 12:55 PM CDT Respiratory Rate 18 12/21/2019 12:55 PM CDT Oxygen Saturation 98% 12/21/2019 12:55 PM CDT Inhaled Oxygen Concentration - - Weight 56.7 kg (125 lb) 12/21/2019 12:55 PM CDT Height 160 cm (5' 3 ) 12/21/2019 12:55 PM CDT Body Mass Index 22.14 12/21/2019 12:55 PM CDT Plan of Treatment Health Maintenance Due Date Last Done Comments DEXA Bone Density 1955 Hepatitis C Virus (HCV) Screening 1955 Mammogram 1955 TdaP Immunization 1955 Cologuard 2004 Immunochemical Fecal Occult Blood 2004 Pneumococcal Immunization (5 0+ years) (1 of 1 - PCV) 2004 Zoster Immunization (1 of 2) 2004 Colonoscopy 11/18/2022 11/18/2017 Colorectal Cancer Screening 11/18/2022 Influenza Immunization (#1) 2023 SARS-COV-2 Immunization (1 - 2023-25 season) 2023 Respiratory Syncytial Virus (RSV) Immunization (Adult) (1 - 1-dose 75+ series) 2029 11/18/2017 Hepatitis B Immunization Aged Out No longer eligible based on patient's age to complete this topic Meningococcal Immunization (ACWY) Aged Out No longer eligible based on patient's age to complete this topic Rotavirus Immunization Aged Out No lo nger eligible based on patient's age to complete this topic Insurance MEDICARE C AETNA Care Teams Unleavened Dough Mixer Relationship Specialty Start Date End Date Moses Cox MD [facility] [place] [address] PCP - General Trailer Steerer 08/13/18
--- OUTSIDE RECORDS SUMMARY | 2024-07-19 09:15 | XMS_ITS | CONTINUITY OF CARE DOCUMENT ---
Author Name lucian epstein Address Unknown Organization [facility] Address [address] [address] [place] [address] Phone [phone] Care Team Providers Care Supervisor Wall Mirror Department Name Role Phone Jasvir GHOSH, Noah Unavailable [phone] NANCY BRANCH MD Unavailable INSURANCE PROVIDERS Payer name Policy type / Coverage type [place] red republican ID [facility] [id number]
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
--- OUTSIDE RECORDS SUMMARY | 2024-07-19 09:16 | XMS_ITS | Referral Summary ---
Author Organization [facility] Medical Office Building B Address [address] [place] [address] Care Team Providers Care Caterpillar Operator Name Role Phone Trinidad Dumont MD [...] (12/03/2017): Added automatically from request for surgery [id number] Joint pain, hip 08/23/2017 Social History Tobacco Use Types Packs/Day Years Used Date Smoking Tobacco: Former Cigarettes 1 16 1 967 - 1983 Smokeless Tobacco: Never Alcohol Use Standard Drinks/Week Comments No 0 (1 standard drink = 0.6 oz pur e alcohol) Comments Unknown Sex and Gender Information Value Date Recorded Sex Assigned at Not on file Legal Sex Female 1:32 AM TRANSPORTATION SALES CONSULTANT Gender Identity Not on file Sexual Orientation [...] on file Medical Devices Implanted Type Area Supervisor Ship Maintenance Services Device Identifier Shelf Expiration Date Model / Serial / Lot Bioraptor Suture [place] Implanted:Qty: 1 on 01/23/2018 by El Hooker MD at [facility] Left: Hip [employer] 09/11/2022 / [id number] / [id number] [facility] MEDICARE Care Teams Caterpillar Operator Relationship Specialty Start Date End Date Trinidad Dumont MD PCP - General Family Medicine 02/25/19
--- OUTSIDE RECORDS SUMMARY | 2024-07-19 09:16 | XMS_ITS ---
Author Organization [facility] Address [address] [place] [address] Care Team Providers Care Strategy Lead Name Role Phone Elsy Valadezchary Primary Care Provider Kailee Soler [phone] REASON FOR VISIT [facility] Approved 04/08/2024-04/07/2025 Encounters Encounter Location Date Provider Diagnosis [facility] [address] [place] [address] 05/25/2024 Kailee Ye Plan Of Treatment Next Appt Details Provider Name:Kailee erwin, 07/23/2024 01:50:00 PM, [address] [facility] [address], [address], Progress Notes * Ngozi TYLER JDOB:1955 (68 yo F)Acc No.[id number]:05/25/2024 Patient: R KIMBERLEE Ngozi J :1955 A ge:68 Y S ex:Female Address:[address], [place], [address] * true * Date: Generated for Alexisi ng/Faxing/eTransmitting on: 0 07/19/2024 09:15 AM CDT
[2024-07-19] MEDS: HYDROmorphone HCL INJ (*CRX) 1 MG/ML SYR IV PUSH (10:17)
[2024-07-19 10:54] LABS: Basophils Percent Auto 0.4 % (0.2-1.2); Eosinophils Absolute Auto 0.1 K/mm3 (0-0.3); Eosinophils Percent Auto 0.5 % (0-4.4); Hematocrit 37.3 % (37.0-47.0); Hemoglobin 11.8 g/dL (12.0-15.0); Immature Granulocyte Absolute 0.03 K/mm3 (0.00-0.031); Immature Granulocyte Percent A 0.3 % (0-0.5); Lymphocytes Percent Auto 9.8 % (18.3-44.2); Mean Corpuscular HGB Conc 31.6 g/dl (32-36); Mean Corpuscular Volume 88.6 fl (80-100); Mean Platelet Volume 8.8 fl (7.4-10.4); Monocytes Absolute Auto 0.7 K/mm3 (0.1-0.6); Monocytes Percent Auto 7.4 % (2.6-8.5); Neutrophils Absolute Auto 7.5 K/mm3 (1.3-6.7); Neutrophils Percent Auto 81.6 % (45.5-73.1); Platelet Count Result 265 k/mm3 (150-375); Red Blood Count 4.21 M/mm3 (4.2-5.4); Red Cell Distribution Width 14.1 % (11.5-14.5); White Blood Count 9.2 K/mm3 (4.5-10.0)
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
[2024-07-19 11:06] LABS: Alanine Aminotransferase 17 U/L (6-35); Alkaline Phosphatase 86 U/L (38-126); Anion Gap 8 mmol/L (4-12); Aspartate Amino Transferase 22 U/L (14-36); Bilirubin,Total 0.9 mg/dL (0.2-1.3); Blood Urea Nitrogen 10 mg/dL (7-17); Calcium 8.9 mg/dL (8.4-10.2); Carbon Dioxide 27 mmol/L (22-30); Chloride 103 mmol/L (98-107); Estimated CRCL calculation 55 ml/min; Estimated Glomerular Filt Rate > 60; Glucose 108 mg/dL (65-110); Lipase 33 U/L (23-300); Phosphorus 2.8 mg/dL (2.5-4.5); Potassium 3.6 mmol/L (3.4-5.0); Sodium 138 mmol/L (137-145)
[2024-07-19 11:10] LABS: INR 0.9; Prothrombin Time 12.6 Seconds (11.1-14.7)
[2024-07-19 11:11] LABS: Partial Thromboplastin Time 25.1 Seconds (22.3-36.8)
[2024-07-19 11:17] LABS: Troponin I < 0.012 ng/mL (0.000-0.034)
[2024-07-19 11:21] LABS: Add Urine Microscopic? YES; Appearance Urine Clear (Clear); Bacteria Urine None Seen /hpf; Bilirubin Urine Negative (Negative); Blood Urine Negative (Negative); Color Urine Yellow (Yellow); Glucose Urine UA Negative (Negative); Ketones Urine Trace mg/dL (Negative); Leukocyte Esterase Ur Negative LEU/UL (Negative); Need Manual Microscopic Reviewed; Nitrate Urine Negative (Negative); Non Pathogenic Casts 0-2; Protein Urine Trace mg/dL (Negative); RBC Urine 0-2 /hpf (0-2); Squamous Epithelial Cell Urine None Seen /hpf (Few); WBC Urine 0-5 /hpf (0-3); pH Urine 8.5 (5.0-9.0)
[2024-07-19] MEDS: KETOROLAC 15 MG/ML VIAL (*BKC) IV PUSH (14:20)
[2024-07-19] MEDS: ACETAMINOPHEN 500 MG TABLET 1000 MG PO (14:20)
[2024-07-19] MEDS: methocarbamoL 750 MG TABLET PO (14:20)
[2024-07-19] MEDS: LIDOCAINE 5% PATCH 1 PATCH TRANSDERM (14:20)
--- NOTE | 2024-07-19 16:40 | ADMGEN ---
This patient, Ngozi Tyler, was admitted to 2 Medical Room 258-01. Patient/family oriented to hospital policies and general routines including ID bracelet, bed and alarms, visiting hours, pain management, procedures, bathroom and other care routines, personal items, smoking policy, room service/diet, and visiting hours. Information on how to activate the Rapid Response Team has been discussed. Patient/Family are encouraged to report perceived risks to care and to ask questions if they do not understand what they are told or what they should do.
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
[2024-07-19] MEDS: MORPHINE SULFATE (*CRX) 4 MG/ML INJ IV PUSH ×2 (17:23→21:22)
[2024-07-19] MEDS: diazePAM (*CRX) 2 MG TABLET 1 MG PO (17:23)
--- NOTE | 2024-07-19 17:34 | P.PNNEUSUR_ITS ---
Subjective Date/time seen: 07/19/24 17:34 Received consult euest for Mrs. Tyler. Someone from our team will see within 24 hours. Objective Data Vital Signs Vital Signs: Vital Signs - 24 hr 07/19/24 09:04 07/19/24 09:17 07/19/24 09:32 Temperature 98.8 F Pulse Rate 77 75 74 Respiratory Rate 12 19 17 Blood Pressure 163/100 H 152/85 H 158/81 H Pulse Oximetry 96 98 94 Oxygen Delivery Room Air 07/19/24 09:47 07/19/24 10:02 07/19/24 10:17 Temperature Pulse Rate 73 73 72 Respiratory Rate 18 19 21 H Blood Pressure 160/90 H 158/86 H 170/132 H Pulse Oximetry 98 98 93 Oxygen Delivery 07/19/24 10:32 07/19/24 11:02 07/19/24 13:32 Temperature Pulse Rate 76 75 78 Respiratory Rate 15 16 16 Blood Pressure 138/89 161/90 H 161/96 H Pulse Oximetry 93 92 99 Oxygen Delivery 07/19/24 13:47 07/19/24 14:29 07/19/24 15:16 Temperature Pulse Rate 79 70 64 Respiratory Rate 17 15 23 H Blood Pressure 161/91 H 157/96 H 183/93 H Pulse Oximetry 99 98 98 Oxygen Delivery 07/19/24 15:31 07/19/24 16:24 Temperature Pulse Rate 74 75 Respiratory Rate 20 15 Blood Pressure 177/91 H 161/84 H Pulse Oximetry 94 93 Oxygen Delivery Meds/Results Medications: Active Medications Generic Name Dose Route Start Last Admin Trade Name Freq PRN Reason Stop Dose Admin Acetaminophen 650 mg 07/19/24 16:53 Acetaminophen 325 Mg Tablet PO Q6H PRN Mild Pain (1-3) or Fever Hydrocodone Bitart/Acetaminophen 1 tab 07/19/24 16:53 Hydrocodone/Acetaminophen (*Crx) 5-325 Mg Tablet PO Q4H PRN Pain Rated 4-6 Alendronate Sodium 35 mg 07/20/24 06:30 Alendronate Sodium 35 Mg Tablet PO [id number] ROBERT Alprazolam 1 mg 07/19/24 16:55 Alprazolam (*Crx) 0.5 Mg Tablet PO TID PRN Anxiety Morphine Sulfate 4 mg 07/19/24 16:53 07/19/24 17:23 Morphine Sulfate (*Crx) 4 Mg/Ml Inj IV PUSH 4 mg Q4H PRN Administration Pain Rated 7-10 Paroxetine HCl 20 mg 07/20/24 09:00 Paroxetine 20 Mg Tablet PO DAILY [facility] Vitamin B Complex 1 cap 07/20/24 09:00 Vitamin B Complex Capsule PO DAILY [facility] Vitamin D 1,000 units 07/20/24 09:00 Cholecalciferol 1,000 Units Tablet PO DAILY [facility] Radiology Results: ITS Impressions Chest X-Ray 07/19/24 10:38 IMPRESSION: No acute osseous abnormality pelvis. Severe bilateral hip osteoarthritic changes. XR pelvis 1-2V, XR chest 1V portable Ordering provider: Frankie Holcomb MD History: 68 years Female with . Launched off [employer] . Comparison: None. FINDINGS: MEDIASTINUM: The cardiac silhouette is slightly enlarged. LUNGS: No infiltrates, effusions or pneumothorax. Prominent bronchovascular markings in the lower lobes. Early pneumonia is noted excluded. Follow-up advised. OTHER: No free air under the diaphragm. IMPRESSION: Prominent markings in the lower lobes. Early pneumonia is not excluded. Follow- up advised. Pelvis X-Ray 07/19/24 10:38 IMPRESSION: No acute osseous abnormality pelvis. Severe bilateral hip osteoarthritic changes. XR pelvis 1-2V, XR chest 1V portable Ordering provider: Frankie Holcomb MD History: 68 years Female with . Launched off [employer] . Comparison: None. FINDINGS: MEDIASTINUM: The cardiac silhouette is slightly enlarged. LUNGS: No infiltrates, effusions or pneumothorax. Prominent bronchovascular markings in the lower lobes. Early pneumonia is noted excluded. Follow-up advised. OTHER: No free air under the diaphragm. IMPRESSION: Prominent markings in the lower lobes. Early pneumonia is not excluded. Follow- up advised. Head CT 07/19/24 11:46 IMPRESSION: No acute intracranial findings. Cervical Spine CT 07/19/24 11:54 IMPRESSION: No acute osseous abnormality cervical spine. Postoperative changes Degenerative disc disease at the level of C6-C7 with narrowing of the left foramen. Chest/Abdomen/Pelvis CT 07/19/24 12:08 IMPRESSION: CHEST: 1. Atelectasis versus pneumonia in the right lung base with trace of effusion. Left basilar atelectasis. 2. Highly suggestive fracture of the right second rib laterally. 3. Compression fracture of T8. MRI evaluation advised. ABDOMEN/PELVIS: 1. No solid organ injury. 2. Area of narrowing in the transverse colon on the left side 3. Possibility of volvulus of the cecum cannot be excluded. Clinical evaluation and follow-up advised. 4. Constipation Labs Labs: Laboratory Results - last 24 hr 07/19/24 07/19/24 10:45 11:01 WBC 9.2 RBC 4.21 Hgb 11.8 L Hct 37.3 MCV 88.6 MCH 28.0 MCHC 31.6 L RDW 14.1 Plt Count 265 MPV 8.8 Immature Gran % (Auto) 0.3 Neut % (Auto) 81.6 H Lymph % (Auto) 9.8 L [place] % (Auto) 7.4 Eos % (Auto) 0.5 Baso % (Auto) 0.4 Lymph # (Auto) 0.90 [place] # (Auto) 0.7 H Eos # (Auto) 0.1 Baso # (Auto) 0.0 Abs Immat Gran (auto) 0.03 Absolute Neuts (auto) 7.5 H Absolute Nucleated RBC 0.000 Nucleated RBC % 0.0 PT 12.6 INR 0.9 APTT 25.1 Sodium 138 Potassium 3.6 Chloride 103 Carbon Dioxide 27 Anion Gap 8 BUN 10 D Creatinine 0.69 L Estim Creat Clear Calc 55 Estimated GFR > 60 Glucose 108 Calcium 8.9 Phosphorus 2.8 Magnesium 2.0 Total Bilirubin 0.9 AST 22 ALT 17 Alkaline Phosphatase 86 Troponin I < 0.012 Total Protein 7.0 Albumin 4.0 Lipase 33 Urine Color Yellow Urine Appearance Clear Urine pH 8.5 Ur Specific [place] 1.020 Urine Protein Trace Urine Glucose (UA) Negative Urine Ketones Trace H Ur Blood (Man) Negative Urine Nitrate Negative Urine Bilirubin Negative Urine Urobilinogen 1.0 Add Ur Microanalysis Reviewed Leukocyte Esterase Rfl Negative Urine RBC 0-2 Urine WBC 0-5 Ur Squamous Epith Cells None seen Urine Bacteria None seen Urine Casts 0-2
[2024-07-19] MEDS: HYDROcodone/acetaminophen (*CRX) 5-325 MG TABLET 1 TAB PO ×2 (19:23→23:26)
[2024-07-19] MEDS: DOCUSATE SODIUM 100 MG CAPSULE PO (20:19)
[2024-07-19] MEDS: ONDANSETRON HCL ODT 4 MG TABLET PO (21:46)
[2024-07-19] MEDS: ALPRAZolam (*CRX) 0.5 MG TABLET 1 MG PO (23:25)
[2024-07-20] MEDS: MORPHINE SULFATE (*CRX) 4 MG/ML INJ IV PUSH ×4 (04:02→19:11)
--- NOTE | 2024-07-20 05:01 | PC.NURSE ---
Spoke with Dr. Ogden and received an order for straight cath. The patient is retaining 767 cc at this time.
[2024-07-20 05:12] LABS: Basophils Percent Auto 0.5 % (0.2-1.2); Eosinophils Absolute Auto 0.2 K/mm3 (0-0.3); Eosinophils Percent Auto 2.8 % (0-4.4); Hematocrit 37.8 % (37.0-47.0); Hemoglobin 11.5 g/dL (12.0-15.0); Immature Granulocyte Absolute 0.02 K/mm3 (0.00-0.031); Immature Granulocyte Percent A 0.3 % (0-0.5); Lymphocytes Absolute Auto 2.53 K/mm3 (0.9-3.2); Lymphocytes Percent Auto 33.7 % (18.3-44.2); Mean Corpuscular HGB Conc 30.4 g/dl (32-36); Mean Corpuscular Hemoglobin 27.4 pg (26-34); Mean Corpuscular Volume 90.2 fl (80-100); Mean Platelet Volume 9.1 fl (7.4-10.4); Monocytes Absolute Auto 0.7 K/mm3 (0.1-0.6); Monocytes Percent Auto 9.6 % (2.6-8.5); Neutrophils Percent Auto 53.1 % (45.5-73.1); Platelet Count Result 286 k/mm3 (150-375); Red Blood Count 4.19 M/mm3 (4.2-5.4); Red Cell Distribution Width 14.5 % (11.5-14.5); White Blood Count 7.5 K/mm3 (4.5-10.0)
[2024-07-20 05:20] LABS: Anion Gap 8 mmol/L (4-12); Blood Urea Nitrogen 6 mg/dL (7-17); Calcium 8.9 mg/dL (8.4-10.2); Carbon Dioxide 29 mmol/L (22-30); Chloride 101 mmol/L (98-107); Estimated CRCL calculation 53 ml/min; Estimated Glomerular Filt Rate > 60; Glucose 86 mg/dL (65-110); Potassium 3.6 mmol/L (3.4-5.0); Sodium 138 mmol/L (137-145)
[2024-07-20] MEDS: HYDROcodone/acetaminophen (*CRX) 5-325 MG TABLET 1 TAB PO ×3 (05:24→17:19)
[2024-07-20 06:00] VITALS: BP 123/66; PULSE 98; RESP 18; O2SAT 90
[2024-07-20] MEDS: ALENDRONATE SODIUM 35 MG TABLET PO (06:48)
[2024-07-20] MEDS: VITAMIN B COMPLEX CAPSULE 1 CAP PO (08:24)
[2024-07-20] MEDS: DOCUSATE SODIUM 100 MG CAPSULE PO ×2 (08:24→19:57)
[2024-07-20] MEDS: CHOLECALCIFEROL 1,000 UNITS TABLET 1000 UNITS PO (08:24)
[2024-07-20] MEDS: PARoxetine 20 MG TABLET PO (08:24)
[2024-07-20] MEDS: ACETAMINOPHEN 325 MG TABLET 650 MG PO ×2 (08:27→15:01)
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
[2024-07-20] MEDS: ALPRAZolam (*CRX) 0.5 MG TABLET 1 MG PO ×2 (09:57→19:57)
[2024-07-20] MEDS: ONDANSETRON HCL ODT 4 MG TABLET PO (11:07)
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
[2024-07-20 14:00] VITALS: BP 103/72; PULSE 76; RESP 18; TEMP 36.8; O2SAT 95
[2024-07-20] MEDS: LIDOCAINE 5% PATCH 1 PATCH TRANSDERM (15:02)
[2024-07-20] MEDS: methocarbamoL 750 MG TABLET PO (19:57)
[2024-07-20 20:30] VITALS: BP 108/61; PULSE 74; RESP 20; TEMP 36.9; O2SAT 95
[2024-07-21] MEDS: HYDROcodone/acetaminophen (*CRX) 5-325 MG TABLET 1 TAB PO ×3 (01:51→19:41)
[2024-07-21] MEDS: ONDANSETRON HCL ODT 4 MG TABLET PO ×2 (01:53→09:45)
[2024-07-21] MEDS: methocarbamoL 750 MG TABLET PO ×3 (04:41→17:23)
[2024-07-21 04:55] VITALS: BP 132/68; PULSE 79; RESP 20; TEMP 36.7; O2SAT 93
[2024-07-21] MEDS: MORPHINE SULFATE (*CRX) 4 MG/ML INJ IV PUSH ×3 (05:23→13:24)
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
[2024-07-21] MEDS: CHOLECALCIFEROL 1,000 UNITS TABLET 1000 UNITS PO (08:45)
[2024-07-21] MEDS: VITAMIN B COMPLEX CAPSULE 1 CAP PO (08:45)
[2024-07-21] MEDS: PARoxetine 20 MG TABLET PO (08:45)
[2024-07-21] MEDS: DOCUSATE SODIUM 100 MG CAPSULE PO ×2 (08:45→19:41)
[2024-07-21] MEDS: LIDOCAINE 5% PATCH 1 PATCH TRANSDERM (08:46)
[2024-07-21] MEDS: ALPRAZolam (*CRX) 0.5 MG TABLET 1 MG PO ×3 (08:46→19:41)
--- NOTE | 2024-07-21 10:27 | PCPTNOTE ---
Attempted PT evaluation however pt does not yet have her TLSO. Will continue to attempt.
[2024-07-21 14:00] VITALS: BP 128/72; PULSE 89; RESP 19; TEMP 36.8; O2SAT 95
[2024-07-21] MEDS: HYDROmorphone HCL INJ (*CRX) 1 MG/ML SYR 0.5 MG IV PUSH (17:24)
[2024-07-21 20:52] VITALS: BP 130/66; PULSE 87; RESP 20; TEMP 37.1; O2SAT 90
[2024-07-22] MEDS: HYDROcodone/acetaminophen (*CRX) 5-325 MG TABLET 1 TAB PO ×3 (00:38→10:18)
[2024-07-22] MEDS: methocarbamoL 750 MG TABLET PO ×5 (00:38→23:06)
[2024-07-22 04:59] VITALS: BP 146/67; PULSE 96; RESP 16; TEMP 36.3; O2SAT 95
[2024-07-22 05:15] LABS: Hematocrit 37.2 % (37.0-47.0); Hemoglobin 11.5 g/dL (12.0-15.0); Mean Corpuscular HGB Conc 30.9 g/dl (32-36); Mean Corpuscular Hemoglobin 27.7 pg (26-34); Mean Corpuscular Volume 89.6 fl (80-100); Mean Platelet Volume 9.1 fl (7.4-10.4); Platelet Count Result 267 k/mm3 (150-375); Red Blood Count 4.15 M/mm3 (4.2-5.4); Red Cell Distribution Width 14.1 % (11.5-14.5); White Blood Count 6.9 K/mm3 (4.5-10.0)
[2024-07-22 05:25] LABS: Anion Gap 7 mmol/L (4-12); Blood Urea Nitrogen 7 mg/dL (7-17); Calcium 8.8 mg/dL (8.4-10.2); Carbon Dioxide 29 mmol/L (22-30); Chloride 102 mmol/L (98-107); Estimated CRCL calculation 51 ml/min; Estimated Glomerular Filt Rate > 60; Glucose 88 mg/dL (65-110); Potassium 3.7 mmol/L (3.4-5.0); Sodium 138 mmol/L (137-145)
[2024-07-22] MEDS: PARoxetine 20 MG TABLET PO (08:05)
[2024-07-22] MEDS: DOCUSATE SODIUM 100 MG CAPSULE PO ×2 (08:05→20:33)
[2024-07-22] MEDS: ALPRAZolam (*CRX) 0.5 MG TABLET 1 MG PO ×3 (08:06→20:33)
[2024-07-22] MEDS: LIDOCAINE 5% PATCH 1 PATCH TRANSDERM (08:06)
[2024-07-22] MEDS: VITAMIN B COMPLEX CAPSULE 1 CAP PO (08:06)
[2024-07-22] MEDS: CHOLECALCIFEROL 1,000 UNITS TABLET 1000 UNITS PO (08:06)
[2024-07-22] MEDS: HYDROmorphone HCL INJ (*CRX) 1 MG/ML SYR 0.5 MG IV PUSH (08:08)
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
[2024-07-22] MEDS: ONDANSETRON HCL ODT 4 MG TABLET PO (11:18)
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
[2024-07-22 13:55] VITALS: BP 121/77; PULSE 81; RESP 18; TEMP 36.8; O2SAT 97
[2024-07-22] MEDS: HYDROcodone/acetaminophen (*CRX) 7.5-325 MG TABLET 1 TAB PO ×2 (15:37→19:27)
[2024-07-22] MEDS: polyethylene glycoL 3350 17 GM POWD.PACK PO (16:16)
[2024-07-22 21:18] VITALS: BP 145/78; PULSE 88; RESP 18; TEMP 36.9; O2SAT 94
[2024-07-22 21:19] VITALS: O2SAT 99
[2024-07-23] MEDS: HYDROcodone/acetaminophen (*CRX) 7.5-325 MG TABLET 1 TAB PO ×2 (03:24→08:48)
[2024-07-23] MEDS: methocarbamoL 750 MG TABLET PO ×3 (05:12→18:01)
[2024-07-23 05:21] LABS: Hemoglobin 11.9 g/dL (12.0-15.0); Mean Corpuscular HGB Conc 30.5 g/dl (32-36); Mean Corpuscular Hemoglobin 27.9 pg (26-34); Mean Corpuscular Volume 91.5 fl (80-100); Mean Platelet Volume 8.8 fl (7.4-10.4); Platelet Count Result 277 k/mm3 (150-375); Red Blood Count 4.26 M/mm3 (4.2-5.4); White Blood Count 5.9 K/mm3 (4.5-10.0)
[2024-07-23 05:23] VITALS: BP 141/73; PULSE 84; RESP 18; TEMP 37; O2SAT 96
[2024-07-23 05:35] LABS: Alanine Aminotransferase 16 U/L (6-35); Albumin Level 3.8 g/dL (3.5-5.1); Alkaline Phosphatase 90 U/L (38-126); Anion Gap 6 mmol/L (4-12); Aspartate Amino Transferase 24 U/L (14-36); Bilirubin,Total 0.7 mg/dL (0.2-1.3); Blood Urea Nitrogen 5 mg/dL (7-17); Carbon Dioxide 29 mmol/L (22-30); Chloride 105 mmol/L (98-107); Estimated CRCL calculation 52 ml/min; Estimated Glomerular Filt Rate > 60; Glucose 94 mg/dL (65-110); Potassium 4.1 mmol/L (3.4-5.0); Sodium 140 mmol/L (137-145)
[2024-07-23] MEDS: ACETAMINOPHEN 325 MG TABLET 650 MG PO ×4 (06:21→21:10)
[2024-07-23] MEDS: PARoxetine 20 MG TABLET PO (08:48)
[2024-07-23] MEDS: VITAMIN B COMPLEX CAPSULE 1 CAP PO (08:48)
[2024-07-23] MEDS: DOCUSATE SODIUM 100 MG CAPSULE PO ×2 (08:48→21:10)
[2024-07-23] MEDS: CHOLECALCIFEROL 1,000 UNITS TABLET 1000 UNITS PO (08:48)
[2024-07-23] MEDS: polyethylene glycoL 3350 17 GM POWD.PACK PO (08:48)
[2024-07-23] MEDS: ALPRAZolam (*CRX) 0.5 MG TABLET 1 MG PO ×2 (08:48→18:04)
[2024-07-23] MEDS: LIDOCAINE 5% PATCH 1 PATCH TRANSDERM (08:49)
[2024-07-23] MEDS: CYCLOBENZAPRINE HCL 5 MG TABLET PO ×2 (09:32→18:01)
[2024-07-23] MEDS: oxyCODONE HCL (*CRX) 5 MG TAB IR PO ×3 (11:37→20:09)
[2024-07-23 13:53] VITALS: BP 145/80; PULSE 78; RESP 18; TEMP 36.6; O2SAT 97
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
--- NOTE | 2024-07-23 15:34 | PCOTNOTE ---
The patient treatment was not able to be completed. Patient reports she is in to much pain 10/10 RN present and providing medication. Patient reports she is also nauseous. Will plan to continue treatment per plan of care.
[2024-07-23] MEDS: GABAPENTIN 100 MG CAPSULE PO (18:01)
[2024-07-23 20:23] VITALS: BP 134/80; PULSE 82; RESP 20; TEMP 37.5; O2SAT 94
[2024-07-23 21:10] VITALS: PULSE 82; RESP 20; O2SAT 94
[2024-07-24] MEDS: CYCLOBENZAPRINE HCL 5 MG TABLET PO ×2 (00:17→08:38)
[2024-07-24] MEDS: methocarbamoL 750 MG TABLET PO ×2 (00:17→12:16)
[2024-07-24 05:34] VITALS: BP 130/79; PULSE 72; RESP 20; TEMP 36.8; O2SAT 95
[2024-07-24 05:44] LABS: Hematocrit 37.9 % (37.0-47.0); Hemoglobin 11.8 g/dL (12.0-15.0); Mean Corpuscular HGB Conc 31.1 g/dl (32-36); Mean Corpuscular Hemoglobin 27.8 pg (26-34); Mean Corpuscular Volume 89.4 fl (80-100); Mean Platelet Volume 8.9 fl (7.4-10.4); Platelet Count Result 299 k/mm3 (150-375); Red Blood Count 4.24 M/mm3 (4.2-5.4); Red Cell Distribution Width 14.2 % (11.5-14.5); White Blood Count 5.8 K/mm3 (4.5-10.0)
[2024-07-24 05:55] LABS: Alanine Aminotransferase 15 U/L (6-35); Albumin Level 3.6 g/dL (3.5-5.1); Alkaline Phosphatase 91 U/L (38-126); Anion Gap 7 mmol/L (4-12); Aspartate Amino Transferase 22 U/L (14-36); Bilirubin,Total 0.7 mg/dL (0.2-1.3); Blood Urea Nitrogen 6 mg/dL (7-17); Calcium 8.9 mg/dL (8.4-10.2); Carbon Dioxide 27 mmol/L (22-30); Chloride 105 mmol/L (98-107); Estimated CRCL calculation 56 ml/min; Estimated Glomerular Filt Rate > 60; Glucose 89 mg/dL (65-110); Potassium 3.7 mmol/L (3.4-5.0); Sodium 139 mmol/L (137-145)
[2024-07-24] MEDS: VITAMIN B COMPLEX CAPSULE 1 CAP PO (08:38)
[2024-07-24] MEDS: CHOLECALCIFEROL 1,000 UNITS TABLET 1000 UNITS PO (08:38)
[2024-07-24] MEDS: DOCUSATE SODIUM 100 MG CAPSULE PO (08:38)
[2024-07-24] MEDS: PARoxetine 20 MG TABLET PO (08:38)
[2024-07-24] MEDS: ACETAMINOPHEN 325 MG TABLET 650 MG PO (08:38)
[2024-07-24] MEDS: polyethylene glycoL 3350 17 GM POWD.PACK PO (08:39)
[2024-07-24] MEDS: ALPRAZolam (*CRX) 0.5 MG TABLET 1 MG PO (08:42)
[2024-07-24] MEDS: LIDOCAINE 5% PATCH 1 PATCH TRANSDERM (08:42)
[2024-07-24] MEDS: oxyCODONE HCL (*CRX) 5 MG TAB IR PO (08:50)
[2024-07-24] MEDS: BISACODYL 10 MG SUPPOSITORY RECTAL (12:16)
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
== END 2024-07-24 14:38 | disposition home health service (06) | DRG 552 ==
LOC: ANHED 15:05 → ANH2MED 16:05
PROVIDERS: Nurse Practitioner; Student in an Organized Health Care Education/Training Program; Admitting Provider General Practice; Emergency Provider Emergency Medicine; PCP Nurse Practitioner Family; Visit Provider Student in an Organized Health Care Education/Training Program
DX: S22.060A Wedge compression fracture of T7-T8 vertebra, initial encounter for closed fracture (principal); S22.31XA Fracture of one rib, right side, initial encounter for closed fracture; K44.9 Diaphragmatic hernia without obstruction or gangrene; E03.9 Hypothyroidism, unspecified; M85.80 Other specified disorders of bone density and structure, unspecified site; F32.A Depression, unspecified; F41.9 Anxiety disorder, unspecified; W09.8XXA Fall on or from other playground equipment, initial encounter; Z96.651 Presence of right artificial knee joint; Z87.11 Personal history of peptic ulcer disease; Z98.1 Arthrodesis status; Z87.891 Personal history of nicotine dependence
CPT/HCPCS: 36415; 70450; 71045; 71260; 72125; 72146; 72170; 74018; 74177; 80048; 80053; 81001; 83690; 83735; 84100; 84484; 85025; 85027; 85610; 85730; 96374; 96375; 97110; 97116; 97161; 97165; 97530; 97535; 99285; A9270; J1171; J1885; J2270; Q9967

== ENCOUNTER 2024-08-25 19:55 | Emergency (ER) | payer MEDICARE, SELFPAY ==
[2024-08-25 20:03] VITALS: BP 141/102; PULSE 107; RESP 19; TEMP 36.8; O2SAT 98
[2024-08-25 20:54] LABS: Basophils Percent Auto 0.5 % (0.2-1.2); Eosinophils Absolute Auto 0.2 K/mm3 (0-0.3); Eosinophils Percent Auto 2.5 % (0-4.4); Hematocrit 44.3 % (37.0-47.0); Hemoglobin 13.5 g/dL (12.0-15.0); Immature Granulocyte Absolute 0.02 K/mm3 (0.00-0.031); Immature Granulocyte Percent A 0.3 % (0-0.5); Lymphocytes Absolute Auto 2.56 K/mm3 (0.9-3.2); Lymphocytes Percent Auto 34.9 % (18.3-44.2); Mean Corpuscular HGB Conc 30.5 g/dl (32-36); Mean Corpuscular Hemoglobin 28.1 pg (26-34); Mean Corpuscular Volume 92.1 fl (80-100); Mean Platelet Volume 8.6 fl (7.4-10.4); Monocytes Absolute Auto 0.7 K/mm3 (0.1-0.6); Monocytes Percent Auto 9.9 % (2.6-8.5); Neutrophils Absolute Auto 3.8 K/mm3 (1.3-6.7); Neutrophils Percent Auto 51.9 % (45.5-73.1); Platelet Count Result 455 k/mm3 (150-375); Red Blood Count 4.81 M/mm3 (4.2-5.4); Red Cell Distribution Width 14.6 % (11.5-14.5); White Blood Count 7.3 K/mm3 (4.5-10.0)
--- OUTSIDE RECORDS SUMMARY | 2024-08-25 21:01 | XMS_ITS | Continuity of Care Document ---
Author Organization [facility] Address [address] [place] [address] Phone Care Team Providers Care Overlock Operator Name Role Phone Walton OD, Yoav Unavailable Unavailable Procedures Procedure Date Post-op Follow-up Visit Post-op Follow-up Visit Remove Cataract, Insert Lens IOLMaster Office/outpatient Visit, Est Eye Exam, New Patient Refraction Advance Directives Directive Yes / No Effective Date File Name No Information Encounters Encounter Description Practice Location Reason(s) For Visit Diagnoses Date Provider Providers Copied on Encounter [facility], [address] [place] [address] [address], [place], [place], [id number], tel:[phone] [facility] No Information 0-201 0 Walton OD Yoav. [address] , [address], [place], [place], [facility], . tel:[phone] [facility], [id number] [place] [address] [address], [place], [place], [id number], [place] tel:[phone] [facility] No Information 9-201 0 Doisy Edward. [address], [address], [place], [address], [place]. tel:[phone] [facility], [address] [place] [address] [address], [place], [place], [id number], [place] tel:[phone] [facility] No Information 1 8-201 0 Fadia Zaidi. [facility] [address] , [address], [place], [place], [facility], [place]. tel:[phone] [facility], [id number] [place] [address] [address], [place], [place], [id number], tel:[phone] SEC [facility] No Information 0-201 0 Fadia Zaidi. [address] [place], [place] [address]ate [address], [address], [place], [place], [facility], [place]. tel:[phone] Referring Provider: Dejuan Rehman, [address] [place], [place] [address] [place], [place], [place], [facility]. tel:[phone] Office/outpat ient Visit, [facility], [address] [facility] [address], [place], [place], [id number], [place] tel:[phone] [facility] No Information Nov-0 1-201 0 Fadia Zaidi. [address] [place], [place] [address]ate [address], [address], [place], [facility], [place]. tel:[phone] [facility], [address] [place] [address] [address], [place], [place], [id number], [place] tel:[phone] [facility] No Information Dec-2 0-201 0 Fadia Zaidi. [address] [place], [place] [address]ate [address], [address], [place], [place], [facility], [place]. tel:[phone] Family History Family Member Type Diagnosis Age [...]
--- OUTSIDE RECORDS SUMMARY | 2024-08-25 21:02 | XMS_ITS | Clinical Summary ---
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
--- OUTSIDE RECORDS SUMMARY | 2024-08-25 21:02 | XMS_ITS ---
Author Organization [employer] [facility] [email or web address] [facility] ([address]) Address [address] [place] [address] Care Team Providers Care Salon Manager Name Role Phone Jersey Valadez Primary Care Provider Kailee Soler Unavailable [phone] Allergies No Known Allergies REASON FOR VISIT Headache follow-up Medications Medication SIG (Take, Route, Frequency, Duration) Notes Start Date End Date Status Biofreeze Active Nurtec 75 MG 1 tablet Orally ever y other day as migraine preventive for 30 days 01/28/2024 Not-Takin g Biotin Active Icy Hot Active Medrol 4 MG 6 tabs Day 1, 5 tabs Day 2, 4 tabs Day 3, 3 tabs Day 4, 2 tabs Day 5, 1 tab Day 6, then stop, Orally take full daily dose in AM with food as directed for 6 days 02/04/2024 Not-Taking Xanax 3 prn Active Paxil Active Womens Multivitamin Not-Taking Qulipta 60 MG 1 tablet Orally Once a day for 30 days 01/16/2024 Active Rizatriptan Benzoate 10 MG 1 tablet Orally once, may repeat x1 after 2-4 hours As needed for migraine (max 2tabs/day) 01/16/2024 Active Vitamin D3 Active Zhpjbskic-Sxemayug-Pwvvoh icone Active Vitamin B 12 Active Social History Tobacco Use: Social History Observation Description Date Details (start date - stop date) Former Smoker NA - NA Smoking Smart Form: Question Answer Notes Are you a: former smoker Additional Findings:Tobacco Non-User Tolerant ex -smoker Encounters Encounter Location Date Provider Diagnosis [facility] [address] [address] 04/16/2024 Kailee Ephraim Chronic migraine without aura, not intractable, without status migrainosus G43.709 ; Chronic tension-type headache, intractable G44.221 and Myalgia, unspecified site M79.10 Assessments Encounter Date Diagnosis (ICD Code) Assessment Notes Treatment Notes Treatment Clinical Notes Section Notes 04/16/2024 Chronic migraine without aura, not intractable, without status migrainosus (ICD-10 - G43.709) 04/16/2024 Chronic tension-type headache, intractable (ICD-10 - G44.221) 04/16/2024 Myalgia, unspecified site (ICD-10 - M79.10) Plan Of Treatment Next Appt Details Follow Up: , Reason: Evaluat ion and Management Progress Notes * Ngozi TYLERDOB:1955 (68 yo F)Acc No.[id number]:04/16/2024 Progress Notes Patient: Ngozi CHAVARRIA Provider: Adalid Ye APRN :1955 A ge:68 Y S ex:Female Date:04/16/2024 Address:[address] [place], [place] [id number] Pcp:Jersey Valadez Subjective: * Chief Complaints: * 1 . Headache follow-up. * HPI: * Introduction: I had the [...] copay. She is completing paperwork for the [facility] program today. Her migraines have decreased in frequency since her last visit. Rizatriptan has been an effective abortive treatment. She reports that Nurtec was also an effective abortive treatment. * Previous Impression & Plan: Notes P revious Diagnoses: 1 . Chronic migraine without aura, not intractable, without status migrainosus - G43.709 (Primary) 2 . Chronic tension-type headache, intractable - G44.221 3 . Myalgia, unspecified site - M79.10 P revious Recommendations: 1 . Abortive: Continue Rizatriptan. Gave samples of Nurtec (copay was too high). Preventive: Start Qulipta 60 mg daily. 2 . Discussed stress reduction and getting adequate hydration. 3 . Follow up with pain management. * Interval History: Notes P harmacologic Treatment: C urrent abortive treatment: R izatriptan 10 mg, Nurtec (effective). Topical analgesics (Icy Hot, BioFreeze, Aspercreme) P revious abortive treatment: F ioricet (ineffective), Acetaminophen (contradicated due to elevated liver enzymes), NSAIDs are contraindicated d/t hx of gastric ulcer. C urrent preventive treatment: Q ulipta 60 mg daily (high copay) P revious preventive treatment: A mitriptyline (ineffective), Topiramate (ineffective) M edication overuse: Not currently present (prior hx of acetaminophen overuse with elevated LFTs) O ther modalities: Physical Therapy (no impact on headaches), trigger point injections (ineffective) H eadache Frequency: I nitial/baseline headache/migraine days/month: - L ast visit headache/migraine days/month: - C urrent headache/migraine days/month: / H eadache Scales: H IT-6: Current score: . Prior score: 70 I nterval History: L ast visit was on 04/28/2023.. * ROS: A LLERGY: scratchy throat Y [...] * Surgical History: r ight knee surgery , left hip , right rotator cuff , 2 neck surgeries , tennis elbow in both , carpal tunnel in both hands , tubal ligation . * Hospitalization/Major Diagno stic Procedure: c olonoscopy , endoscopy . * Family History: F ather: No. M other: No. P aternal Grand Father: No. P aternal Grand Mother: No.?Maternal Grand Father: No. M aternal Grand Mother: No. P aternal uncle: No. P aternal aunt: No. M aternal uncle: No. M aternal aunt: Yes. S iblings: Yes. C mohinderen: Yes. mom side- bad hearts and cancer [...] worked in any of the following: f [employer] Have you had any job with high exposure to fumes, chemicals, dust or other noxious substances? Y es Are you currently a student? N o * Medications: T aking Biofreeze , Taking Icy Hot , Taking Biotin , Taking Vitamin D3 , Taking Vitamin B 12 , Taking Apmmniisy-Khtymemg-Igtkmhvuoan , Taking Paxil , Taking Xanax , Notes to Pharmacist: 3 prn, Taking Rizatriptan Benzoate 10 MG Tablet 1 tablet Orally once, may repeat x1 after 2-4 hours As needed for migraine (max 2tabs/day), Taking Qulipta 60 MG Tablet 1 tablet Orally Once a day , Not-Taking/PRN Womens Multivitamin , Not-Taking/PRN Nurtec 75 MG Tablet Disintegrating 1 tablet Orally every other day as migraine preventive , Not-Taking/PRN Medrol 4 MG Tablet Therapy Pack 6 tabs Day 1, 5 tabs Day 2, 4 tabs Day 3, 3 tabs Day 4, 2 tabs Day 5, 1 tab Day 6, then stop, Orally take full daily dose in AM with food as directed * Allergies: N .K.D.A. Objective: * Vitals: * Examination: G eneral examination: General appearance: [...] unspecified site - M79.10 Plan: * Treatment: * Procedure Codes: 9 6160 PT-FOCUSED HLTH RISK ASSMT, G8427 DOC MEDS VERIFIED W/PT OR RE, G2211 Complex e/m visit add on * Follow Up: R carolyn: Evaluation and Management * Billing Information: * Visit Code: 41267 Office Visit, Est Pt., Level 4. Modifiers: 25 48513 Office Visit, Est Pt., Level 3. Modifiers: 25 46385 Office Visit, Est Pt., Level 5. Modifiers: 25 * Procedure Codes: 01620 PT-FOCUSED HLTH RISK ASSMT. G8427 DOC MEDS VERIFIED W/PT OR RE. G2211 Complex e/m visit add on. * Electronic signature of JORDI Cross on 08/25/2024 at 09:02 PM CDT Sign off status: Pending * Provider: Adalid Ye APRN Date: 0 04/16/2024 Generated for Gayle Duarte/Esa on: 0 08/25/2024 09:02 PM CDT History and Physical Notes * HPI [...] copay. She is completing paperwork for the [employer] assistance program today. Her migraines have decreased [...] with pain management *Interval History Notes Pharmacologic Treatment:Curr ent abortive treatment: Rizatriptan 10 mg, Nurtec (effective). Topical analgesics (Icy Hot, BioFreeze, Aspercreme)Previous abortive treatment: Fioricet (ineffective), Acetaminophen (contradicated due to elevated liver enzymes), NSAIDs are contraindicated d/t hx of gastric ulcer.Current preventive treatment: Qulipta 60 mg daily (high copay)Previous preventive treatment: Amitriptyline (ineffective), Topiramate (ineffective)Medication overuse: Not currently present (prior hx of acetaminophen overuse with elevated LFTs)Other modalities: Physical Therapy (no impact on headaches), trigger point injections (ineffective)Headache Frequency:Initial/baseline headache/migraine days/month: -Last visit headache/migraine days/month: -Current headache/migraine days/month: /Headache Scales:HIT-6: Current score: . Prior score: 70Interval History:Last visit was on 02/27/2024. Examination Category Sub-Category Detail Notes Category Not [...]
--- OUTSIDE RECORDS SUMMARY | 2024-08-25 21:02 | XMS_ITS | Data Portability ---
Author Organization [place] [facility] [employer], Main Office Address [address] [place] [address] Care Team Providers Care Firearms Specialist Name Role Phone YANDEL DUMONT Primary Care Provider YANDEL DUMONT Referring Provider Assessment No assessment recorded. Plan of Treatment Reminders Order Date Submit Date Provider Last Modified By Organization Details Last Modified Time Details Appointments Follow Up 15 2024 10:00A Ebony Us NP Not available Not available Not available Lab HbA1c (hemoglob in A1c), blood 2024 025 [facility], [address] [place], [address], 06/16/2024 16:41:27 drug of abuse panel, urine 2024 025 [facility], [address] [place], [address], 06/16/2024 14:53:14 CMP, serum or plasma [address] [place] [address] Outpatient Lab, [address] [place], [address], 06/16/2024 14:54:24 TSH + free T4, serum [address] [place] [address] Outpatient Lab, [address] [place], [address], 06/16/2024 14:53:33 folate, serum [address] [place] [address] Outpatient Lab, [address] [place], [address], 06/16/2024 14:53:42 vitamin B12, serum [address] [place] [address] Outpatient Lab, [address] [place], [address], 06/16/2024 14:53:56 CBC w/ auto diff [address] [place] [address] Outpatient Lab, [address] [place], [address], 06/16/2024 14:54:03 iron + total iron-bind ing capacity (TIBC), serum 2024 025 [facility] Out[facility] Lab, [address] [place], [address], 06/16/2024 14:54:10 vitamin D, 25-hydrox y, total, serum 2024 025 [facility], [address] [place], [address], 06/16/2024 14:54:17 lipid panel, serum 2023 024 [email or web address] [facility], [address], [place], [address], 12/25/2023 15:33:19 TSH + free T4, serum 2023 024 [email or web address] [facility], [address], [place], [address], 12/25/2023 15:32:00 CBC w/ auto diff 2023 024 [facility], [address], [place], [address], 12/25/2023 15:33:02 HbA1c (hemoglob in A1c), blood 2023 024 [email or web address] [facility], [address], [place], [address], 12/25/2023 15:32:22 CMP, serum or plasma 2023 024 [email or web address] [facility], [address], [place], [address], 12/25/2023 15:32:44 Referral neurologi jennyfer surgeon referral - Please call patient to schedule an appointme nt. Thank you. 2024 025 [facility], [address] [facility], [facility] [address], [place], [address], 08/04/2024 14:21:15 general surgeon referral - Please call patient to schedule an appointme nt. Thank you. 2023 024 [email or web address] [facility] General Surgery, [address] [facility], [address], [facility] [place], [address], 12/31/2023 08:39:13 Procedures None recorded. Surgeries None recorded. Imaging None recorded. Medication Orders hydrocodo ne 7.5 mg-acetam inophen 325 mg tablet 2024 025 [facility][id number], [address], [place], [place], [id number], 08/04/2024 12:26:20 alprazola m 1 mg tablet 2024 025 [facility] #[id number], [address], [place], [place], [id number], 06/08/2024 11:16:50 alprazola m 1 mg tablet 2023 024 [facility] #[id number], [address], [place], [place], [id number], 02/25/2024 11:48:36 alprazola m 1 mg tablet 2023 024 [facility][id number], [address], [place], [place], [id number], 12/03/2023 14:06:11 Patient TargetsNo targets recorded. Patient Instructions Encounter Date Encounter Id Patient Instructions Last Modified By Organization Details Last Modified Time 12/03/2023 [id number] dementia rating scale-2* FUNMI Not available 12/13/2023 09:40:58 multi-dimensiona l health assessment questionnaire* FUNMI Not available 12/13/2023 09:41:05 care plan* Not available 12/02 14:05:36 advance directiv es: care instructions Not available 12/03/2023 14:05:33 advance care planning: care instructions Not available 12/03/2023 14:05:33 [place] Advance Directives Not available 12/03/2023 14:05:33 Personalized a lt Plan and Screening Recommendations Advance Directives - [...] appointment. Thank you. Referring Physician: Jersey Valadez, [facility], Encounter Date: 12/03/2023 Neurological Surgeon Ashley sarabia for Compression fracture of thoracic vertebra Please call patient to schedule an appointment. Thank you. Referring Physician: Gali Us, [facility], Encounter Date: 08/04/2024 Results Created Date Observation Date Name Description Value Unit Range Abnormal Flag Note LastModifiedBy Organization Detail LastModifiedTime 12/26/19 24 12/26/2023 LIPID PANEL , STAND SYED cholesterol, total 191 mg/dL <200 normal Not Available [address], [address], 12/26/2023 14:54:35 12/26/19 24 12/26/2023 LIPID PANEL , STAND SYED HDL cholesterol 76 mg/dL > or = 50 normal Not Available [address], [address], 12/26/2023 14:54:35 12/26/19 24 12/26/2023 LIPID PANEL , STAND SYED triglyceride s 105 mg/dL <150 normal Not Available [facility] [employer] [address], [address], 12/26/2023 14:54:35 12/26/19 24 12/26/2023 LIPID PANEL , STAND SYED LDL-choleste rol 95 mg/dL _(jennyfer c) normal Refer ence range : <100 Brianne able range <100 mg/dL for prima ry preve ntion ; <70 mg/dL for patie nts with CHD or diabe tic patie nts with > or = 2 CHD risk facto rs. LDL-C is now calcu lated using the Shira n-Hop kins calcu latio n, which is a valid ated novel metho d provi ding ed r accur acy than the Fried arias equat ion in the estim ation of LDL-C . Shira guillen SS et al. CORNELIO. 2013; 310(1 9): 2061- 2068 (http ://ed ucati on.Qu alizaDi [employer]s. com/f aq/FA Q164) Not Available [address], [address], 12/26/2023 14:54:35 12/26/19 24 12/26/2023 LIPID PANEL , STAND SYED chol/HDLC ratio 2.5 (calc ) <5.0 normal Not Available [address], [address], 12/26/2023 14:54:35 12/26/19 24 12/26/2023 LIPID PANEL , STAND SYED non HDL cholesterol 115 mg/dL _(jennyfer c) <130 normal For patie nts with diabe meg plus 1 major ASCVD risk facto r, treat ing to a non-H DL-C goal of <100 mg/dL (LDL- C of <70 mg/dL ) is wily barnes optio n. Not Available [address] [address] [place], [address], 12/26/2023 14:54:35 12/26/1912/26/2023 TSH+F REE T4 TSH 4.43 mIU/L 0.40-4 .50 normal Not Available [facility] [address] [address] [place], [address], 12/26/2023 14:54:36 12/26/19 24 12/26/2023 TSH+F REE T4 T4, free 1.0 NG/dL 0.8-1. 8 normal Not Available [facility] [address] [address] [place], [address], 12/26/2023 14:54:36 12/26/19 24 12/26/2023 COMPR EHENS KASSY METAB OLIC PANEL glucose 85 mg/dL 65-99 normal Fasti ng refer ence inter tova Not Available [address], [address], 12/26/2023 14:54:36 12/26/19 24 12/26/2023 COMPR EHENS KASSY METAB OLIC PANEL urea nitrogen (BUN) 10 mg/dL 7-25 normal Not Available [address], [address], 12/26/2023 14:54:36 12/26/19 24 12/26/2023 COMPR EHENS KASSY METAB OLIC PANEL creatinine 0.76 mg/dL 0.50-1 .05 normal Not Available [address], [address], 12/26/2023 14:54:36 12/26/19 24 12/26/2023 COMPR EHENS KASSY METAB OLIC PANEL eGFR 85 mL/mi n/1.7 3m2 > or = 60 normal Not Available [address], [address], 12/26/2023 14:54:36 12/26/19 24 12/26/2023 COMPR EHENS KASSY METAB OLIC PANEL BUN/creatini ne ratio SEE NOTE: (calc ) 6-22 Not Repor marcy: BUN and Creat inine are withi n refer ence range . Not Available [address], [address], 12/26/2023 14:54:36 12/26/19 24 12/26/2023 COMPR EHENS KASSY METAB OLIC PANEL sodium 140 mmol/ L 135-14 6 normal Not Available [address], [address], 12/26/2023 14:54:36 12/26/19 24 12/26/2023 COMPR EHENS KASSY METAB OLIC PANEL potassium 4.1 mmol/ L 3.5-5. 3 normal Not Available [address], [address], 12/26/2023 14:54:36 12/26/19 24 12/26/2023 COMPR EHENS KASSY METAB OLIC PANEL chloride 102 mmol/ L 98-110 normal Not Available [address], [address], 12/26/2023 14:54:36 12/26/19 24 12/26/2023 COMPR EHENS KASSY METAB OLIC PANEL carbon dioxide 30 mmol/ L 20-32 normal Not Available [address], [address], 12/26/2023 14:54:36 12/26/19 24 12/26/2023 COMPR EHENS KASSY METAB OLIC PANEL calcium 9.6 mg/dL 8.6-10 .4 normal Not Available [address], [address], 12/26/2023 14:54:36 12/26/19 24 12/26/2023 COMPR EHENS KASSY METAB OLIC PANEL protein, total 6.5 g/dL 6.1-8. 1 normal Not Available [address], [address], 12/26/2023 14:54:36 12/26/19 24 12/26/2023 COMPR EHENS KASSY METAB OLIC PANEL albumin 4.4 g/dL 3.6-5. 1 normal Not Available [address], [address], 12/26/2023 14:54:36 12/26/19 24 12/26/2023 COMPR EHENS KASSY METAB OLIC PANEL globulin 2.1 g/dL_ (calc ) 1.9-3. 7 normal Not Available [address], [address], 12/26/2023 14:54:36 12/26/19 24 12/26/2023 COMPR EHENS KASSY METAB OLIC PANEL albumin/glob ulin ratio 2.1 (calc ) 1.0-2. 5 normal Not Available [address], [address], 12/26/2023 14:54:36 12/26/19 24 12/26/2023 COMPR EHENS KASSY METAB OLIC PANEL bilirubin, total 0.6 mg/dL 0.2-1. 2 normal Not Available [address], [address], 12/26/2023 14:54:36 12/26/19 24 12/26/2023 COMPR EHENS KASSY METAB OLIC PANEL alkaline phosphatase 82 U/L 37-153 normal Not Available [address], [address], 12/26/2023 14:54:36 12/26/19 24 12/26/2023 COMPR EHENS KASSY METAB OLIC PANEL AST 43 U/L 10-35 high Not Available [address], [address], 12/26/2023 14:54:36 12/26/19 24 12/26/2023 COMPR EHENS KASSY METAB OLIC PANEL ALT 40 U/L 6-29 high Not Available [address], [address], 12/26/2023 14:54:36 12/26/19 24 12/26/2023 CBC (INCL UDES DIFF/ PLT) white blood cell count 5.6 thous and/u L 3.8-10 .8 normal Not Available [address], [address], 12/26/2023 14:54:37 12/26/19 24 12/26/2023 CBC (INCL UDES DIFF/ PLT) red blood cell count 4.49 sandi on/uL 3.80-5 .10 normal Not Available [address], [address], 12/26/2023 14:54:37 12/26/19 24 12/26/2023 CBC (INCL UDES DIFF/ PLT) hemoglobin 13.5 g/dL 11.7-1 5.5 normal Not Available [address], [address], 12/26/2023 14:54:37 12/26/19 24 12/26/2023 CBC (INCL UDES DIFF/ PLT) hematocrit 42.3 % 35.0-4 5.0 normal Not Available [address], [address], 12/26/2023 14:54:37 12/26/19 24 12/26/2023 CBC (INCL UDES DIFF/ PLT) MCV 94.2 fL 80.0-1 00.0 normal Not Available [address], [address], 12/26/2023 14:54:37 12/26/19 24 12/26/2023 CBC (INCL UDES DIFF/ PLT) MCH 30.1 pg 27.0-3 3.0 normal Not Available [address], [address], 12/26/2023 14:54:37 12/26/19 24 12/26/2023 CBC (INCL UDES DIFF/ PLT) MCHC 31.9 g/dL 32.0-3 6.0 low Not Available [address], [address], 12/26/2023 14:54:37 12/26/19 24 12/26/2023 CBC (INCL UDES DIFF/ PLT) RDW 12.8 % 11.0-1 5.0 normal Not Available [address], [address], 12/26/2023 14:54:37 12/26/19 24 12/26/2023 CBC (INCL UDES DIFF/ PLT) platelet count 292 thous and/u L 140-40 0 normal Not Available [address], [address], 12/26/2023 14:54:37 12/26/19 24 12/26/2023 CBC (INCL UDES DIFF/ PLT) MPV 10.1 fL 7.5-12 .5 normal Not Available [address], [address], 12/26/2023 14:54:37 12/26/19 24 12/26/2023 CBC (INCL UDES DIFF/ PLT) absolute neutrophils 2615 cells /uL 1500-7 800 normal Not Available [address], [address], 12/26/2023 14:54:37 12/26/19 24 12/26/2023 CBC (INCL UDES DIFF/ PLT) absolute lymphocytes 2262 cells /uL 850-39 00 normal Not Available [address], [address], 12/26/2023 14:54:37 12/26/19 24 12/26/2023 CBC (INCL UDES DIFF/ PLT) absolute monocytes 566 cells /uL 200-95 0 normal Not Available [address], [address], 12/26/2023 14:54:37 12/26/19 24 12/26/2023 CBC (INCL UDES DIFF/ PLT) absolute eosinophils 118 cells /uL 15-500 normal Not Available [address], [address], 12/26/2023 14:54:37 12/26/19 24 12/26/2023 CBC (INCL UDES DIFF/ PLT) absolute basophils 39 cells /uL 0-200 normal Not Available [address], [address], 12/26/2023 14:54:37 12/26/19 24 12/26/2023 CBC (INCL UDES DIFF/ PLT) neutrophils 46.7 % normal Not Available [address], [address], 12/26/2023 14:54:37 12/26/19 24 12/26/2023 CBC (INCL UDES DIFF/ PLT) lymphocytes 40.4 % normal Not Available [address], [address], 12/26/2023 14:54:37 12/26/19 24 12/26/2023 CBC (INCL UDES DIFF/ PLT) monocytes 10.1 % normal Not Available [address], [address], 12/26/2023 14:54:37 12/26/19 24 12/26/2023 CBC (INCL UDES DIFF/ PLT) eosinophils 2.1 % normal Not Available [address], [address], 12/26/2023 14:54:37 12/26/19 24 12/26/2023 CBC (INCL UDES DIFF/ PLT) basophils 0.7 % normal Not Available [address], [address], 12/26/2023 14:54:37 12/26/19 24 12/26/2023 HEMOG LOBIN [...] Curre ntly, no conse nsus exist s regar ding use of hemog lobin A1c for diagn [...] valid ation testi ng condu cted at [facility] , the Alex platf orm relat kassy to the [employer] platf orm had an avera ge incre ase in HbA1c value of < or = 0.3%. This diffe rence is withi n accep marcy varia bilit y estab lishe d by the [employer] hemog lobin Stand roland ation Progr am. Note that not all indiv idual s will have had a shift in their resul ts and direc t say rison s betwe en histo rical and curre nt resul ts for testi ng condu cted on diffe rent platf orms is not recom randal d. NO COLLE CTION DATE RECEI CAMRYN. WE HAVE USED THE DATE THE SPECI MEN WAS RECEI CAMRYN BY THIS LABOR ATORY THE COLLE CTION DATE. IF THIS IS INCOR RECT, PLEAS E CONTA CT CLIEN T SERVI MAURI. PHONE NUMBE R: [phone] Not Available [employer] [facility] [address], [place], [address], 12/26/2023 14:54:37 11/22/19 24 11/21/2023 NM, bone scan No observ ation record ed. [email or web address] [place] [address] [address], [place], [address], 11/28/2023 23:31:18 12/26/19 24 11/15/2023 CT, abdom en + pelvi s, w/wo contr ast No observ ation record ed. [email or web address] [facility] [address] [facility], [place], [address], 01/02/2024 11:30:53 07/20/19 25 07/19/2024 CT, brain , w/o contr ast No observ ation record ed. [address], [place], [address], 08/03/2024 14:03:23 07/20/19 25 07/19/2024 XR, pelvi s, 1 or 2 view No observ ation record ed. [address], [place], [address], 08/03/2024 14:02:51 Result Notes None recorded. Problems Name Problem SNOMED Code Status Onset Date Resolution Date Notes Provider Name and Address Organization Details Recorded Time History of right total knee replacemen t 9221999065091 102 Active 2020 Not Available [employer] 4 14:05:15 Pain in right sacroiliac joint 2396634948073 9107 Active 2021 Not Available [employer] 4 14:05:15 Vaginal discharge symptom 613601436 Active Not Available [employer] 4 14:05:15 Mammograph y abnormal 056859273 Active Not Available [employer] 4 14:05:15 Pain of sacroiliac joint 656959838 Active 2021 Not Available [employer] 4 14:05:15 Tear of meniscus of knee 104184614 Active 2020 Not Available [employer] 4 14:05:15 Lichen sclerosus et atrophicus Active Not Available [employer] 4 14:05:15 Low back pain 197117770 Active 2018 Not Available [facility] 4 14:05:15 Tear of medial meniscus of knee 012133494 Active 2021 Not Available [facility] 4 14:05:15 Tear of lateral meniscus of knee 011121904 Active 2021 Not Available [facility] 4 14:05:15 Current tear of medial cartilage AND/OR meniscus of knee Active 2020 Not Available [facility] 4 14:05:15 Osteopenia 909757394 Active Not Available [facility] 4 14:05:15 Osteoarthr itis of right knee joint 9398784517096 00 Active 2020 Not Available [employer] 4 14:05:16 Acute vulvitis 45424531 Active Not Available [facility] 4 14:05:16 Genital herpes simplex 46136000 Active Not Available [facility] 4 14:05:16 Depressive disorder 46823914 Active 2018 Not Available [employer] 4 14:05:16 Onychomyco sis of toenails 883173423 Active 2021 Not Available [facility] 4 14:05:16 Cervicovag inal cytology specimen unsatisfac tory 248105500 Active Not Available [facility] 4 14:05:16 Ulcer 879974599 Active 2018 Not Available [facility] 4 14:05:16 Hyperlipid emia 76321899 Active 2020 Not Available [facility] 4 14:05:16 Iron deficiency anemia 20072813 Active 2018 Not Available [facility] 4 14:05:16 Gastroesop hageal reflux disease without esophagiti s 083544986 Active 2022 Not Available [facility] 4 14:05:15 Hypothyroi dism 75949999 Active 2022 Not Available [facility] 4 14:05:16 Malaise and fatigue 273363352 Active 2022 Not Available [facility] 4 14:05:15 Prediabete s 645547874 Active 2022 Not Available [facility] 4 14:05:16 Thrombocyt osis 1419871 Active 2022 Not Available [facility] 4 14:05:16 Liver enzymes level above reference range 211810511 Active 2022 Not Available [facility] 4 14:05:16 Gastric ulcer 936428817 Active 2022 Not Available [facility] 4 14:05:16 Pain of right knee joint 5814483828369 00 Active 2022 Not Available [facility] 4 14:05:16 Pain of right hip joint 1475800811852 02 Active 2022 Not Available [facility] 4 14:05:15 Trochanter ic bursitis of right hip 6608582379561 00 Active 2022 Not Available [facility] 4 14:05:15 Migraine 34752937 Active 2022 Not Available [facility] 4 14:05:16 Spinal stenosis of lumbar region 73194152 Active 2022 Not Available [facility] 4 14:05:15 Mixed anxiety and depressive disorder 424394508 Active 2022 Not Available [facility] 4 14:05:15 Vitamin D deficiency 98983331 Active 2022 Not Available [facility] 4 14:05:16 Lesion of skin of nose 7033079438766 9103 Active 2022 Not Available [facility] 4 14:05:15 Iron deficiency 67505081 Active 2023 Not Available [facility] 4 14:05:16 Melena 4873105 Active 2023 Not Available [facility] 4 14:05:15 Abdominal bloating 664075543 Active 2023 Not Available [facility] 4 14:05:15 Thyroid function tests abnormal 535954004 Active 2023 Yandel Dumont MD [address], [address], [place], [address] , [place] [facility] 4 12:46:39 Leukopenia 73829310 Active 2023 Yandel Dumont MD [address], [address], [place], [address] , [place] [facility] 4 12:47:02 Abdominal pain 55060394 Active 2023 JORDI Brian [address], [address], [place], [address] , [place] [facility] 4 14:45:50 Hiatal hernia 39118431 Active 2023 JORDI Brian [address], [address], [place], [address] , [place] [facility] 4 14:52:27 Uniform abdominal distention 108047693 Active 2023 JORDI Cortez [address], [address], [place], [address] , [employer] [place] [facility] 4 11:25:56 Anxiety 37699066 Active 2023 JORDI Cortez [address], [address], [place], [address] , [employer] [place] [facility] [place] [facility] 4 17:56:51 Fatigue 46747876 Active 2024 JORDI Cortez [address], [address], [place], [address] , [employer] [place] [facility] 5 11:08:04 Compressio n fracture of thoracic vertebra 8851817645348 Active 2024 JORDI Cortez [address], [address], [place], [address] , [place] [facility] 5 14:14:21 Nausea 557508866 Active 2024 JORDI Cortez [address], [address], [place], [address] , [facility] 5 14:39:19 Problem Notes None recorded. Procedures Surgical History Date Name Laterality Status Provider Name and Address Organization Details Recorded Time 12/02 Medicare Wellness CPT Code, subsequent completed Jersey Valadez [employer] [address], [address], [place], [address] , [facility] 4 12:25:09 11/26 Ortho - Cortisone Injection completed Urbano Duffy MD [address], [address], [place], [address] , [facility] 3 11:41:44 10/29 Ortho - Cortisone Injection completed Urbano Duffy MD [address], [address], [place], [address] , [facility] [place] [facility] 3 10:06:15 07/20 esophagogastroduodenoscopy completed Cas Sood [place] [facility] 3 16:37:57 07/20 EGD completed Olinda Brantley LPN [place] [facility] 3 12:20:17 07/20 EGD completed Olinda Brantley LPN [place] [facility] [place] [facility] 3 15:24:10 06/20 EGD completed Not Available [facility] 3 00:47:34 01/16 Most Recent Mammogram completed Not Available [facility] 3 00:47:30 12/19 Date of Last Pap Smear completed Not Available [facility] 3 00:47:30 12/12 Lasik completed Not Available [facility] 3 00:47:34 07/08 Most Recent Bone Density completed Not Available [facility] 3 00:47:30 Rotator cuff surgery completed Not Available [facility] 3 00:47:34 arthroscopy of knee completed Not Available [facility] 3 00:47:34 procedure on shoulder completed Not Available [facility] 3 00:47:34 operation on hip joint completed No t Available [facility] 3 00:47:34 Orthopedic Surgery completed Not Available [facility] 3 00:47:34 Breast augmentation w/implt complete d Not Available [facility] 3 00:47:34 STEM MAKER Procedure completed Not Available [facility] 3 00:47:34 Neck Surgeries completed Not Available [facility] 3 00:47:34 Imaging Results Imaging Date Name Status LastModified by Organization Details Last Modified Time 11/21/2023 NM, bone scan completed [address], [address], 11/28/2023 23:31:18 11/15/2023 CT, abdomen + pelvis, w/wo contrast completed [email or web address] [place] [address] [facility] [place], [address], 01/02/2024 11:30:53 07/19/2024 CT, brain, w/o contrast completed [address], [address], 08/03/2024 14:03:23 07/19/2024 XR, pelvis, 1 or 2 view completed [address], [address], 08/03/2024 14:02:51 Procedure Notes None recorded. Medical Equipment None Reported. Allergies Allergen ID Allergen Name Allergen Category Reaction Reaction Severity Criticality Documentation Date Start Date Code Code System Note Provider Name and Address Organization Details Recorded Time 1203 Acetamino phen / Propoxyph estuardo medicatio n nausea Not available Not available 06/06/2022 26272 RxNorm Not Available [facility] 3 01:01:19 Medications Name Sig Start [...] hydrocodone 5 mg-acetamin ophen 325 mg tablet TAKE 1 TABLET BY MOUTH EVERY 8 HOURS active Not Available Not Available No t Available sucralfate 100 mg/mL oral suspension Take 10 mL 4 times a day by oral route as needed. 2022 active Not Available Not Available Not Avai lable ondansetron HCl 8 mg tablet TAKE 1 TABLET BY MOUTH THREE TIMES DAILY active Not Available Not Available No t Available meloxicam 15 mg tablet TAKE ONE TABLET DAILY WITH FOOD OR MILK NEEDED FOR PAIN 10/16 completed Not Available Not Available Not Available sucralfate 1 gram tablet TAKE 1 TABLET BY MOUTH FOUR TIMES DAILY 08/04 completed Not Available Not Available Not Available venlafaxine 25 mg tablet 08/16 completed [...] Available Not Available topiramate 25 mg tablet 08/04 completed Not Available Not Available Not Available metronidazo [...] tablet TAKE 1 TABLET BY MOUTH EVERY 6 HOURS active Not Available Not Available No t Available pravastatin 10 mg tablet active Not Available Not Available Not Available ropinirole 0.25 mg tablet Take 1 tablet 3 times a day by oral route for 30 days. active Not Available Not Available No t Available Kenalog 10 mg/mL suspension for injection Take 20 mg by injection route. 12/31 completed [facility]: [phone] Not Available Not Available Not Available amitriptyli ne 10 mg tablet TAKE ONE TABLET DAILY AT BEDTIME 10/16 completed Not Available Not Available Not Available levothyroxi ne 50 mcg tablet TAKE 1 TABLET BY MOUTH DAILY 09/13 completed Not Available Not Available Not Available hydrocodone 7.5 mg-acetamin ophen 325 mg tablet TAKE 1 TABLET BY MOUTH EVERY 4 TO 6 HOURS NEEDED. MAX OF 5 PER DAY [...] BY MOUTH EVERY MORNING FOR 4 WEEKS 08/04 completed Not Available Not Available Not Available esomeprazol e magnesium 40 mg capsule,del ayed release TAKE ONE CAPSULE BY MOUTH DAILY BEFORE A MEAL 06/08 completed Not Available Not Available Not Available triamcinolo ne acetonide 0.1 % topical ointment APPLY THIN LAYER TOPICALLY TO THE AFFECTED AREA TWICE DAILY 08/04 completed Not Available Not Available Not Available buspirone 10 mg tablet 08/16 completed [...] AFFECTED AREA TWICE DAILY FOR 2 WEEKS 08/04 completed Not Available Not Available Not Available lorazepam 1 mg tablet TAKE ONE [...] active Not Available Not Available Not Available cyclobenzap rine 5 mg tablet TAKE 1 TABLET BY MOUTH THREE TIMES DAILY active Not Available Not Available No t Available moxifloxaci n 0.5 % eye drops [...] administe red by the provider 01/10 completed [facility]: [phone] Not Available Not Available [...] 20 mg by injection route. 12/31 completed [facility] [phone] Not Available Not Available Not [...] Updated DateTime 4 160.02 cm 22.3 kg/m2 57275.6 4 g 96.9 [degF] 90 /min 97 % 97 % 158 mm[Hg] 98 mm[Hg] Romina Corcoran RN [place] [employer] - [email or web address] [facility] 4 12:14:00 Date Recorded Body height Body mass index (BMI) Body weight Body temperature Heart rate Oxygen saturation Oxygen saturation in Arterial blood by Pulse oximetry Systolic blood pressure Diastolic blood pressure Provider Name and Address Organization Details Last Updated DateTime 4 160.02 cm 26 kg/m2 46343.0 8 g 97.9 [degF] 90 /min 98 % 98 % 116 mm[Hg] 70 mm[Hg] Marisol Vieira RN [facility] [employer] - [email or web address] [facility] 4 11:16:09 Date Recorded Body height Body mass index (BMI) Body weight Body temperature Heart rate Oxygen saturation Oxygen saturation in Arterial blood by Pulse oximetry Systolic blood pressure Diastolic blood pressure Provider Name and Address Organization Details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
--- OUTSIDE RECORDS SUMMARY | 2024-08-25 21:02 | XMS_ITS | CONTINUITY OF CARE DOCUMENT ---
Author Name lucian epstein Address Unknown Organization [facility] Address [address] [facility] [facility] [address] [place] [address] Phone [phone] Care Team Providers Care Gear Design Engineer Name Role Phone Jasvir GHOSH, Noah Unavailable NANCY BRANCH MD Unavailable INSURANCE PROVIDERS Payer name Policy type / Coverage type [place] red democrat ID [facility] [id number]
--- OUTSIDE RECORDS SUMMARY | 2024-08-25 21:02 | XMS_ITS | Patient Health Record ---
Author Organization [facility] ([address]) Address [address] [place] [address] Care Team Providers Care Civil Engineering Teacher Name Role Phone ValadezJersey Primary Care Provider Kailee Soler Unavailable [phone] Allergies No Known Allergies Reason For Referral No Information Medications Medication SIG (Take, Route, Frequency, Duration) Notes Start Date End Date Status Biotin Active Medrol 4 MG 6 tabs Day 1, 5 tabs Day 2, 4 tabs Day 3, 3 tabs Day 4, 2 tabs Day 5, 1 tab Day 6, then stop, Orally take full daily dose in AM with food as directed for 6 days 02/04/2024 Not-Taking Nurtec 75 MG 1 tablet Orally ever y other day as migraine preventive for 30 days 01/28/2024 Not-Takin g Vitamin B 12 Active Vitamin D3 Active Nurtec 75 MG 1 tablet Orally once daily for 30 days As needed 05/14/2024 Active Qulipta 60 MG 1 tablet Orally Once a day for 30 days 01/16/2024 Active Icy Hot PRN Active Biofreeze PRN Active Womens Multivitamin Not-Taking Paxil Active Kxrbjpiij-Fzlwvrjs-Zdrsns icone Active Rizatriptan Benzoate 10 MG 1 tablet Orally once, may repeat x1 after 2-4 hours As needed for migraine (max 2tabs/day) 01/16/2024 Active Xanax 3 prn Active Social History Tobacco Use: Social History Observation Description Date Details (start date - stop date) Former Smoker NA - NA Smoking Smart Form: Question Answer Notes Are you a: former smoker Additional Findings:Tobacco Non-User Tolerant ex -smoker Problems Problem Type SNOMED Code ICD Code Onset Dates Problem Status W/U Status Risk Notes Problem Chronic migraine without aura, non-refractor y (disorder) (943838160869 100) Migraine without aura, not intractable, without status migrainosus (G43.009) Active confirmed Problem Migraine with aura (9525411) Migraine with aura, not intractable, without status migrainosus (G43.109) Active confirmed Problem Chronic migraine without aura, non-intractab le (201474448104 100) Chronic migraine without aura, not intractable, without status migrainosus (G43.709) Active confirmed Problem Chronic tension-type headache (083975652) Chronic tension-type headache, intractable (G44.221) Active confirmed Problem Muscle pain (65393224) Myalgia, unspecified site (M79.10) Active confirmed Vital Signs Oximetry 100 % 05/07/2024 Blood pressure diastolic 80 mm Hg 05/07/2024 Height 63 in 05/07/2024 Blood pressure systolic 146 mm Hg 05/07/2024 Weight 138.2 lbs 05/07/2024 BMI 24.48 kg/m2 05/07/2024 Encounters Encounter Location Date Provider Diagnosis [facility] [address] [place] [address] 07/23/2024 Kailee Ye Chronic migraine without aura, not intractable, without status migrainosus G43.709 ; Chronic tension-type headache, intractable G44.221 and Myalgia, unspecified site M79.[address] [address] 01/16/2024 Kailee Ye Chronic migraine without aura, not intractable, without status migrainosus G43.709 ; Chronic tension-type headache, intractable G44.221 and Myalgia, unspecified site M79.[address] [address] 02/27/2024 Kailee Ye Chronic migraine without aura, not intractable, without status migrainosus G43.709 ; Chronic tension-type headache, intractable G44.221 and Myalgia, unspecified site M79.10 [facility] [address] [facility] [address] [place] [address] 05/07/2024 Kailee Ye Chronic migraine without aura, not intractable, without status migrainosus G43.709 ; Chronic tension-type headache, intractable G44.221 and Myalgia, unspecified site M79.10 [facility] [address] [place] [address] 01/27/2024 Kailee Ye [facility] [address] [place] [address] 01/27/2024 Kailee Ye [facility] [address] [address] 02/03/2024 Kailee Ye [facility] [address] [place] [address] 04/28/2024 Kailee Ephraim [address] [address] 05/25/2024 Kailee Ephraim Assessments Encounter Date Diagnosis (ICD Code) Assessment [...] stress reduction. Recommended magnesium and riboflavin supplementation. 07/23/2024 Chronic migraine without aura, not intractable, without status migrainosus (ICD-10 - G43.709) 07/23/2024 Chronic tension-type headache, intractable (ICD-10 - G44.221) 07/23/2024 Myalgia, unspecified site (ICD-10 - M79.10) 05/07/2024 Myalgia, unspecified site (ICD-10 - M79.10) Recommended PT with myofascial work. The patient would like to hold off on this for now. 02/27/2024 Myalgia, unspecified site (ICD-10 - M79.10) Follow up with pain management. 01/16/2024 Myalgia, unspecified site (ICD-10 - M79.10) Follow up with Pain Management. Consider PT for myofascial work. Plan Of Treatment No Information Insurance Providers Payer Name Payer Address Payer Phone Subscriber Number Group Number Insured Name Patient Relationship to Insured Coverage Start Date Coverage End Date [employer] Medicare [address] [place] [address] [id number] Ngozi Tyler Self - patient is the insured 4 Medical (General) History Surgical History Surgery Date(Month/Year) right knee surgery left hip right rotator cuff 2 neck surgeries tennis elbow in both carpal tunnel in both hands tubal ligation Hospitalization History Reason Date(Month/Year) endoscopy colonoscopy
--- OUTSIDE RECORDS SUMMARY | 2024-08-25 21:02 | XMS_ITS | Clinical Summary ---
Author Organization [facility] Address [address], [facility] [address] [place] [address] Phone Care Team Providers Care Body Piercer Name Role Phone Moses Cox MD Primary Care Provider [phone] Allergies No known active allergies Medications levothyroxine [...] Industry Job Start Date Job End Date [employer] [facility] Not on file Not on file Not [...] topic Insurance MEDICARE C [employer]ET[employer] Care Teams Body Piercer Relationship Specialty Start Date End Date Moses Cox MD [facility] [place] [address] PCP - General Environmental Services Aide 08/13/18
[2024-08-25 21:03] LABS: Acetaminophen < 10 ug/mL (10-30); Ethanol < 10 mg/dL (<10); Salicylate < 1.0 mg/dL (2-20)
--- OUTSIDE RECORDS SUMMARY | 2024-08-25 21:03 | XMS_ITS | Referral Summary ---
Author Organization [facility] Address [address] [place] [address] Care Team Providers Care Jde Developer Name Role Phone Trinidad Dumont MD Primary [...] (12/03/2017): Added automatically from request for surgery [id number] Joint pain, hip 08/23/2017 Social History Tobacco Use Types Packs/Day Years Used Date Smoking Tobacco: Former Cigarettes 1 16 1 967 - 1983 Smokeless Tobacco: Never Alcohol Use Standard Drinks/Week Comments No 0 (1 standard drink = 0.6 oz pur e alcohol) Comments Unknown Sex and Gender Information Value Date Recorded Sex Assigned at Not on file 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 Gender Identity Not on file Sexual Orientation [...] on file Medical Devices Implanted Type Area Maintenance Aide Device Identifier Shelf Expiration Date Model / Serial / Lot Bioraptor Suture [place] Implanted:Qty: 1 on 01/23/2018 by El Hooker MD at [facility] Left: Hip [employer] 09/11/2022 / [id number] / [id number] Insurance [employer] MEDIC[facility] [employer] [facility] MEDICARE Address: [facility] [id number] [place] [phone] [facility] MEDICARE Care Teams Jde Developer Relationship Specialty Start Date End Date Trinidad Dumont MD PCP - General Family Medicine 02/25/19
--- OUTSIDE RECORDS SUMMARY | 2024-08-25 21:03 | XMS_ITS ---
Author Organization [facility] [facility] [place] ([address]) Address [address] [place] [address] Care Team Providers Care Elementary School Tutor Name Role Phone Jersey Valadez Primary Care Provider Kailee Soler Unavailable [phone] Allergies No Known Allergies REASON FOR VISIT Headache follow-up Medications Medication SIG (Take, Route, Frequency, Duration) Notes Start Date End Date Status Icy Hot PRN Active Biofreeze PRN Active Womens Multivitamin Not-Taking Medrol 4 MG 6 tabs Day 1, [...] preventive for 30 days 01/28/2024 Not-Takin g Nurtec 75 MG 1 tablet Orally once daily for 30 days As needed 05/14/2024 Active Qulipta 60 MG 1 tablet Orally Once a day for 30 days 01/16/2024 Active Paxil Active Rizatriptan Benzoate 10 MG 1 tablet Orally once, may repeat x1 after 2-4 hours As needed for migraine (max 2tabs/day) 01/16/2024 Active Xanax 3 prn Active Tyqtrqibp-Rlwzndgp-Jfsyov icone Active Biotin Active Vitamin B 12 Active Vitamin D3 Active Social History Tobacco Use: Social History Observation Description Date Details (start date - stop date) Former Smoker NA - NA Smoking Smart Form: Question Answer Notes Are you a: former smoker Additional Findings:Tobacco Non-User Tolerant ex -smoker Encounters Encounter Location Date Provider Diagnosis [facility] [address] [address] 07/23/2024 Kailee Jones Chronic migraine without aura, not intractable, without status migrainosus G43.709 ; Chronic tension-type headache, intractable G44.221 and Myalgia, unspecified site M79.10 Assessments Encounter Date Diagnosis (ICD Code) Assessment Notes Treatment Notes Treatment Clinical Notes Section Notes 07/23/2024 Chronic migraine without aura, not intractable, without status migrainosus (ICD-10 - G43.709) 07/23/2024 Chronic tension-type headache, intractable (ICD-10 - G44.221) 07/23/2024 Myalgia, unspecified site (ICD-10 - M79.10) Plan Of Treatment Next Appt Details Follow Up: , Reason: Evaluat ion and Management Progress Notes * Ngozi TYLERDOB:1955 (68 yo F)Acc No.[id number]:07/23/2024 Progress Notes Patient: Sofie MARINEMILIANANgozi Provider: Adalid Ye APRN :1955 A ge:68 Y S ex:Female Date:07/23/2024 Address:[address] [place], [place] [address] Pcp:Jersey Valadez Subjective: * Chief Complaints: * 1 . Headache follow-up. * HPI: * Introduction: I had the pleasure of seeing Tamara Tyler, who presented for follow-up for chronic migraine, chronic tension- type, myalgia. * Initial History: INITIAL VISIT HISTORY: [...] LAST VISIT HISTORY: Last visit was on 04/28/2023. She reports [...] medication but she had a high copay. * Previous Impression & Plan: Notes P revious Diagnoses: 1 . Chronic migraine without aura, not intractable, without status migrainosus - G43.709 (Primary) 2 . Chronic tension-type headache, intractable - G44.221 3 . Myalgia, unspecified site - M79.10 P revious Recommendations: 1 . Abortive: Continue rizatriptan. Start Nurtec.*The patient states that the copay was reduced. 2 . Start Qulipta 60 mg. Discussed sending a PA for Botox but the patient would like to hold off on this for now. * Interval History: Notes P harmacologic Treatment: C urrent abortive treatment: R izatriptan (effective), Nurtec (effective). Topical analgesics (Icy Hot, BioFreeze, Aspercreme) P revious abortive treatment: F ioricet (ineffective), Acetaminophen (contradicated due to elevated liver enzymes), NSAIDs are contraindicated d/t hx of gastric ulcer. C urrent preventive treatment: Q ulipta 60 mg samples (effective) P revious preventive treatment: A mitriptyline (ineffective), Topiramate (ineffective) M edication overuse: Not currently present (prior hx of acetaminophen overuse with elevated LFTs) O ther modalities: Physical Therapy (no impact on headaches), trigger point injections (ineffective) H eadache Frequency: I nitial/baseline headache/migraine days/month: - L ast visit headache/migraine days/month: 20-25 (mild)/12-16 C urrent headache/migraine days/month: / H eadache Scales: H IT-6: Current score: . Prior score: 69 I nterval History: L ast visit was on 0 05/07/2024.. 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 Y es Are you currently a student? N o * Medications: T aking Biofreeze , Notes to Pharmacist: PRN, Taking Icy Hot , Notes to Pharmacist: PRN, Taking Biotin , Taking Vitamin D3 , Taking Vitamin B 12 , Taking Klnbmbpuw-Obeqygvr-Npoayktuhkw , Taking Paxil , Taking Xanax , Notes to Pharmacist: 3 prn, Taking Rizatriptan Benzoate 10 MG Tablet 1 tablet Orally once, may repeat x1 after 2-4 hours As needed for migraine (max 2tabs/day), Taking Qulipta 60 MG Tablet 1 tablet Orally Once a day , Taking Nurtec 75 MG Tablet Disintegrating 1 tablet Orally once daily As needed, Not-Taking/PRN Womens Multivitamin , Not-Taking/PRN Nurtec 75 [...] Examination: G eneral examination: General appearance: P nuvia, well-developed, no distress.? HEENT: T enderness to [...] e/m visit add on * Follow Up: Sofie leon: Evaluation and Management * Billing Information: * Visit Code: 03869 Office Visit, Est Pt., Level 4. Modifiers: 25 48325 Office Visit, Est Pt., Level 3. Modifiers: 03492 Office Visit, Est Pt., Level 5. Modifiers: 25 * Procedure Codes: 99837 PT-FOCUSED HLTH RISK ASSMT. G8427 DOC MEDS VERIFIED W/PT OR RE. G2211 Complex e/m visit add on. * Electronic signature of JORDI Cross on 08/25/2024 at 09:02 PM CDT Sign off status: Pending * Provider: Adalid Ye APRN Date: 0 07/23/2024 Generated for Gayle sierra/Tiana/eTransmitting on: 0 08/25/2024 09:02 PM CDT History and Physical Notes * HPI (History of Present Illness) Category Sub-Category Detail Notes Category Notes *Introduction I had the pleasure of seeing Ngozi Tyler, who presented for follow-up for chronic migraine, chronic tension-type, myalgia *Initial History INITIAL VISIT HISTORY: She [...] LAST VISIT HISTORY: Last visit was on 02/27/2024. She reports [...] rescue medication but she had a high copay *Previous Impression & Plan Notes Previous Diagnoses:1. Chroni c migraine without aura, not intractable, without status migrainosus - G43.709 (Primary)2. Chronic tension-type headache, intractable - G44.2213. Myalgia, unspecified site - M79.10Previous Recommendations:1. Abortive: Continue rizatriptan. Start Nurtec.*The patient states that the copay was reduced.2. Start Qulipta 60 mg. Discussed sending a PA for Botox but the patient would like to hold off on this for now *Interval History Notes Pharmacologic Treatment:Curr ent abortive treatment: Rizatriptan (effective), Nurtec (effective). Topical analgesics (Icy Hot, BioFreeze, Aspercreme)Previous abortive treatment: Fioricet (ineffective), Acetaminophen (contradicated due to elevated liver enzymes), NSAIDs are contraindicated d/t hx of gastric ulcer.Current preventive treatment: Qulipta 60 mg samples (effective)Previous preventive treatment: Amitriptyline (ineffective), Topiramate (ineffective)Medication overuse: Not currently present (prior hx of acetaminophen overuse with elevated LFTs)Other modalities: Physical Therapy (no impact on headaches), trigger point injections (ineffective)Headache Frequency:Initial/baseline headache/migraine days/month: -30Last visit headache/migraine days/month: 20-25 (mild)/12-16Current headache/migraine days/month: /Headache Scales:HIT-6: Current score: . Prior score: 69Interval History:Last visit was on 05/07/2024. Examination Category Sub-Category Detail Notes Category Not [...]
[2024-08-25 21:09] LABS: Alanine Aminotransferase 24 U/L (6-35); Albumin Level 4.9 g/dL (3.5-5.1); Alkaline Phosphatase 112 U/L (38-126); Anion Gap 15 mmol/L (4-12); Aspartate Amino Transferase 29 U/L (14-36); Bilirubin,Total 0.9 mg/dL (0.2-1.3); Blood Urea Nitrogen 7 mg/dL (7-17); Calcium 10.1 mg/dL (8.4-10.2); Carbon Dioxide 21 mmol/L (22-30); Chloride 100 mmol/L (98-107); Estimated CRCL calculation 53 ml/min; Estimated Glomerular Filt Rate > 60; Glucose 69 mg/dL (65-110); Sodium 136 mmol/L (137-145)
--- NOTE | 2024-08-25 21:18 | ED.PSYCH ---
HPI - Psych General Chief Complaint: Psychiatric Symptoms Stated Complaint: SI NOTE AND POST ON FACEBOOK History of Present Illness HPI Narrative: 68-year-old female with history of hypothyroidism, depression and anxiety presents to emergency department via EMS from home due to concerns for suicidality. The patient was evaluated in our ER on 07/19/2024 after [id number] accident. She was admitted for a T8 compression fracture and right 2nd rib fracture. She was discharged home on 08/23/2024 with lidocaine patches, methocarbamol 750 mg q.6 hours, oxycodone 5 mg q.4 hours, cyclobenzaprine 5 mg t.i.d. and a TLSO brace. Patient is scheduled to follow-up with neurosurgery next week. She states that despite her pain regimen she has still been in pain and is tired of being in pain. She reportedly made a [facility] post [facility] and stated it was time to be with Amandeep?. Her friend from [employer] became concerned and contacted 911. The patient also states that she had got in a fight with her daughter which is making her more emotional. The patient is stating that she has no thoughts of suicidality or plan to harm herself. She states she only said those things because she is tired of being in pain. She denies HI, hallucinations. She does endorse prior psychiatric admission several decades ago after her father passed for a ?nervous breakdown?. She denies alcohol use. Admits to occasional marijuana use. She does note that she took 2 Xanax this morning which she does every morning along with a hydrocodone, muscle relaxer and Tylenol. She then did not take any other medications throughout the day until 1700 when she took to 5 mg of cyclobenzaprine, 2 hydrocodone and 1 Xanax. She states she was not attempting to overdose but instead doubled up on the cyclobenzaprine and hydrocodone in hopes to help ease her pain. She denies saddle anesthesia, bowel or bladder incontinence. Related Data Home Medications ?Medication ?Instructions ?Recorded ?Confirmed ?Last Taken ?Type vitamin B complex (B 1 tablet PO DAILY 12/24/19 07/19/24 Unknown History Complex-Vitamin B12 tablet) alprazolam 1 mg tablet 1 mg PO TID PRN Anxiety 06/20/21 07/19/24 07/19/24 09:00 History paroxetine HCl 20 mg tablet (Paxil) 20 mg PO DAILY 12/07/21 07/19/24 Unknown History cholecalciferol (vitamin D3) 25 25 mcg PO DAILY 02/19/23 07/19/24 Unknown History mcg (1,000 unit) capsule alendronate 35 mg tablet 35 mg PO WEEKLY 11/14/23 07/19/24 07/13/24 History Allergies Allergy/AdvReac Type Severity Reaction Status Date / Time propoxyphene (From Allergy Severe Nausea Verified 07/19/24 16:46 Darvocet-N 100) Review of Systems Review of Systems: All systems reviewed & are unremarkable except as noted in HPI and below PMFSH Past Medical History Medical History Encounter for Papanicolaou smear for cervical cancer screening Bleeding ulcer Hiatal hernia Gastritis History of colitis Encounter for screening examination for sexually transmitted disease Screening mammogram, encounter for Osteopenia Abnormal Pap smear of cervix hx of abnormal paps at younger age Dysphagia Nausea Epigastric pain Cervical vertebral fusion Depression Anxiety Hypothyroid Surgical History Surgical History History of tubal ligation H/O total knee replacement (03/08/21) right knee Hx of LASIK (12/12/20) History of breast augmentation (~2002) History of elbow surgery bilateral tennis elbow surgery History of shoulder surgery (L) shoulder History of fusion of cervical spine 2005 & 2016 History of arthroscopy of knee (11/19/19) w/medial meniscectomy History of shoulder surgery (03/15/15) (R) shoulder History of gynecologic surgery (08/02/11) vulvar bx--lichen scierosus et atrophicus History of hip surgery (~2017) S/P rotator cuff repair (~2015) Hx of colonoscopy History of esophagogastroduodenoscopy (EGD) (06/20/21) gastritis, hiatal hernia Family History Family History Mother Hypertension Heart disease Osteoporosis Cerebrovascular accident Dementia Father Lung tumor Alcoholism Malignant brain tumor Sibling Diabetes mellitus brother sister Alcoholism brother Carcinoma of colon brother Malignant neoplasm of liver brother Social History Social History Smoking packs per day: 1 Smoking cigarettes per day: 20.0 Years smoked: 20 Smoking pack-years: 20.00 Smoking status: Former smoker Second hand tobacco smoke exposure: No Alcohol intake: never Substance use: current Substance use type: marijuana and prescription drug Other substance usage details: edible CBD for pain Do You Feel Safe in your Home?: Yes Lack of Transportation: No Lack of Food: Never True Current Housing: I Have Housing Concerned About Future Housing: No Difficulty Paying Gas/Electric Bills: No Difficulty Paying for Meds: No Currently Unemployed: No Education: High School Diploma/GED Difficulty w/ Childcare or Family Care: No Living arrangements: alone Additional living arrangements comments: Occupation/Education: retired Additional occupation/education comments: disability Gender identity (if verbalized by the patient): Female Sexual Orientation (if Verbalized by the Patient): Straight or Heterosexual Spiritual care concerns: No Exam Narrative: GENERAL: Well-appearing, well-nourished, and in no acute distress. HEAD: Normocephalic, atraumatic. EYES: EOMI. ENT: Nares clear, no rhinorrhea or epistaxis. Mucous membranes moist. NECK: Supple. BACK: TLSO brace on. Once removed there is tenderness to the T8 region with no overlying skin changes, crepitus or deformity CHEST: Clear to auscultation. No respiratory distress. HEART: Regular rate and rhythm. No murmur heard. Normal peripheral pulses. EXTREMITIES: Normal range of motion. No edema. SKIN: Warm, dry, no rash. NEURO: No focal deficits. Alert and oriented x4. No saddle anesthesia. BLE strength 5/5, sensation intact throughout PSYCH: Tearful, anxious. Denies SI or HI. Not responding to internal stimuli. Otherwise pleasant and cooperative Course Vital Signs Vital signs: Vital Signs Temperature 98.3 F 08/25/24 20:03 Pulse Rate 107 H 08/25/24 20:03 Respiratory Rate 19 08/25/24 20:03 Blood Pressure 141/102 H 08/25/24 20:03 Pulse Oximetry 98 08/25/24 20:03 Oxygen Delivery Room Air 08/25/24 20:03 Temperature 98.3 F 08/25/24 20:03 Pulse Rate 107 H 08/25/24 20:03 Respiratory Rate 19 08/25/24 20:03 Blood Pressure 141/102 H 08/25/24 20:03 Pulse Oximetry 98 08/25/24 20:03 Oxygen Delivery Room Air 08/25/24 20:03 MDM - Psych MDM Narrative Medical decision making narrative: 68-year-old female with history of depression and anxiety presents emergency department via EMS from home for concerns for suicidality. Patient recently had a right 2nd rib fracture and T8 fracture. She reportedly made comments/notes/Facebook posts stating she was going to [employer] today and that she was ready to be with Amandeep. Her friend contacted EMS the patient was transported to the ED. upon arrival to the ED patient is tearful and anxious. She denies SI or HI, states she made those comments because she is tired of being in pain but not that she actually wants to . CBC without leukocytosis or anemia. Chemistries largely unremarkable. UA with 6-10 wbc's and 1+ leuk esterase, patient denies symptoms of UTI. UDS positive for opioids, benzodiazepines and cannabinoids. ETOH less than 10. Viral swabs negative. TSH within normal limits. Patient medically cleared for crisis evaluation. Patient evaluated by crisis and deemed appropriate for IOP. She was given a safety plan. I re-evaluated the patient and she is now resting comfortably in exam bed, laughing and making jokes with her sister, Leola, who is at bedside. Her sister also feels that patient is safe to be discharged home, states she lives nearby and agrees to watch the patient closely. The patient continues to deny SI and HI. I did have a long conversation with patient and sister at bedside regarding concern for polypharmacy and inappropriate use of benzodiazepines/opiates/ muscle relaxers, especially given patient's age. I went through patient's medications with her and advised that she only take them as directed, stagger her medications and to not take benzodiazepines, opiates, muscle relaxers together. Also discussed appropriate Tylenol dosing. Advised to follow-up closely with PCP and neurosurgeon discussed strict ED return precautions. She is agreeable with the plan verbalized understanding. Discharged in stable condition. Lab Data 08/25/24 20:40 08/25/24 20:40 Labs: Lab Results 05/20/25 05/20/25 Range/Units 20:40 22:02 WBC 7.3 (4.5-10.0) K/mm3 RBC 4.81 (4.2-5.4) M/mm3 Hgb 13.5 (12.0-15.0) g/dL Hct 44.3 (37.0-47.0) % MCV 92.1 (80-100) fl MCH 28.1 (26-34) pg MCHC 30.5 L (32-36) g/dl RDW 14.6 H (11.5-14.5) % Plt Count 455 H D (150-375) k/mm3 MPV 8.6 (7.4-10.4) fl Immature Gran % (Auto) 0.3 (0-0.5) % Neut % (Auto) 51.9 (45.5-73.1) % Lymph % (Auto) 34.9 (18.3-44.2) % [place] % (Auto) 9.9 H (2.6-8.5) % Eos % (Auto) 2.5 (0-4.4) % Baso % (Auto) 0.5 (0.2-1.2) % Lymph # (Auto) 2.56 (0.9-3.2) K/mm3 [place] # (Auto) 0.7 H (0.1-0.6) K/mm3 Eos # (Auto) 0.2 (0-0.3) K/mm3 Baso # (Auto) 0.0 (0.0-0.1) K/mm3 Abs Immat Gran (auto) 0.02 (0.00-0.031) K/mm3 Absolute Neuts (auto) 3.8 (1.3-6.7) K/mm3 Absolute Nucleated RBC 0.000 (0.0-0.012) K/mm3 Nucleated RBC % 0.0 (0.0-0.2) % Sodium 136 L (137-145) mmol/L Potassium 4.0 (3.4-5.0) mmol/L Chloride 100 (98-107) mmol/L Carbon Dioxide 21 L (22-30) mmol/L Anion Gap 15 H (4-12) mmol/L BUN 7 (7-17) mg/dL Creatinine 0.71 (0.7-1.0) mg/dL Estim Creat Clear Calc 53 ml/min Estimated GFR > 60 (59 - ) Glucose 69 (65-110) mg/dL Calcium 10.1 (8.4-10.2) mg/dL Total Bilirubin 0.9 (0.2-1.3) mg/dL AST 29 (14-36) U/L ALT 24 (6-35) U/L Alkaline Phosphatase 112 (38-126) U/L Total Protein 8.0 (6.3-8.2) g/dL Albumin 4.9 (3.5-5.1) g/dL TSH 1.070 (0.465-4.680) uIU/mL Urine Color Yellow (Yellow) Urine Appearance Clear (Clear) Urine pH 5.0 (5.0-9.0) Ur Specific [place] 1.008 (1.001-1.035) Urine Protein Negative (Negative) mg/dL Urine Glucose (UA) Negative (Negative) mg/dL Urine Ketones 2+ H (Negative) mg/dL Ur Blood (Man) Negative (Negative) Urine Nitrate Negative (Negative) Urine Bilirubin Negative (Negative) Urine Urobilinogen 0.2 (<2.0) mg/dL Leukocyte Esterase Rfl 1+ H (Negative) RENETTA/UL Urine RBC 0-2 (0-2) /hpf Urine WBC 6-10 H (0-3) /hpf Ur Squamous Epith Cells None seen (Few) /hpf Urine Bacteria None seen /hpf Urine Casts 0-2 Salicylates < 1.0 L (2-20) mg/dL Urine Opiates Screen Positive A (Negative) Urine Methadone Screen Negative (Negative) Acetaminophen < 10 L (10-30) ug/mL Ur Barbiturates Screen Negative (Negative) Ur Phencyclidine Scrn Negative (Negative) Ur Amphetamine Screen Negative (Negative) U Benzodiazepines Scrn Positive A (Negative) Urine Cocaine Screen Negative (Negative) U Cannabinoids Screen Positive A (Negative) Ethyl Alcohol < 10 (<10) mg/dL Influenza A (RT-PCR) Negative (Negative) Influenza B (RT-PCR) Negative (Negative) RSV (RT-PCR) Negative (Negative) SARS-CoV-2 RNA (RT-PCR) Negative (Negative) Discharge Plan Discharge Clinical Impression: Back pain Qualifiers: Back pain location: thoracic back pain Chronicity: acute Back pain laterality: midline Qualified Code(s): M54.6 - Pain in thoracic spine Patient Disposition: Home Condition: Stable Instructions: Antibiotic Form, Depression (ED), Help Prevent Suicide (ED) Additional Instructions: Your evaluated in the emergency department after making comments that were concerning to have suicidal ideation. A safety plan was filled out, please follow-up as directed follow-up closely with her primary care provider in neurosurgeon regarding her pain. Additionally make sure you are taking your medications only as they are prescribed. Do not mix your Xanax, muscle relaxers and hydrocodone. Do not take more than 4 g of Tylenol per day, including the Tylenol that is included in the hydrocodone. Return to the emergency department if you develop thoughts of harming herself or other people, numbness in your groin, you lose control of her bowel or bladder, or other concerning symptoms. Patient Language: [place] Prescriptions: No Action cholecalciferol (vitamin D3) 25 mcg (1,000 unit) capsule 25 mcg PO DAILY clobetasol 0.05 % ointment 1 applic topical BID 14 Days Qty: 45 1RF Patient Comments: use on vagina alendronate 35 mg tablet 35 mg PO WEEKLY paroxetine HCl [Paxil] 20 mg tablet 20 mg PO DAILY alprazolam 1 mg tablet 1 mg PO TID PRN (Reason: Anxiety) lidocaine [Lidoderm] 5 % Adhesive Patch,Medicated 1 patch transdermal DAILY Qty: 15 0RF methocarbamol 750 mg Tablet 750 mg PO Q6HR Qty: 30 0RF oxycodone 5 mg Tablet 5 mg PO Q4H PRN (Reason: Pain Rated 7-10) Qty: 12 0RF cyclobenzaprine 5 mg tablet 5 mg PO TID Qty: 30 0RF vitamin B complex [B Complex-Vitamin B12] Tablet 1 tablet PO DAILY Follow-up/Referrals: Magen,Gali Gayle [employer] [Primary Care Provider] -
[2024-08-25 21:29] LABS: Influenza A QL RT-PCR Negative (Negative); Influenza B QL RT-PCR Negative (Negative); RSV RNA, RT-PCR Negative (Negative); SARS-CoV-2 RNA PCR Negative (Negative)
[2024-08-25 22:14] LABS: Add Urine Microscopic? YES; Appearance Urine Clear (Clear); Bacteria Urine None Seen /hpf; Bilirubin Urine Negative (Negative); Blood Urine Negative (Negative); Color Urine Yellow (Yellow); Glucose Urine UA Negative (Negative); Ketones Urine 2+ mg/dL (Negative); Leukocyte Esterase Ur 1+ LEU/UL (Negative); Nitrate Urine Negative (Negative); Non Pathogenic Casts 0-2; Protein Urine Negative (Negative); RBC Urine 0-2 /hpf (0-2); Specific Grav Ur 1.008 (1.001-1.035); Squamous Epithelial Cell Urine None Seen /hpf (Few); Urobilinogen Urine 0.2 mg/dL (<2.0)
[2024-08-25 22:40] LABS: Amphetamine Screen Urine Negative (Negative); Barbiturate Screen Urine Negative (Negative); Benzodiazepines Screen Urine Positive (Negative); Cannabinoid Screen Urine Positive (Negative); Cocaine Screen Urine Negative (Negative); Methadone Screen Urine Negative (Negative); Opiate Screen Urine Positive (Negative); Phencyclidine Screen Urine Negative (Negative)
[2024-08-26 02:49] VITALS: BP 137/95; PULSE 97; RESP 15; O2SAT 100
== END 2024-08-26 02:51 | disposition home or self-care (01) ==
PROVIDERS: Emergency Provider Physician Assistant; PCP Nurse Practitioner Family
DX: M54.6 Pain in thoracic spine (principal); Z11.52 Encounter for screening for COVID-19; E03.9 Hypothyroidism, unspecified; M85.80 Other specified disorders of bone density and structure, unspecified site; K44.9 Diaphragmatic hernia without obstruction or gangrene; F41.9 Anxiety disorder, unspecified; F32.A Depression, unspecified; Z96.651 Presence of right artificial knee joint; Z98.1 Arthrodesis status; Z87.891 Personal history of nicotine dependence; Z79.899 Other long term (current) drug therapy
CPT/HCPCS: 36415; 80053; 80143; 80179; 80307; 81001; 82077; 84443; 85025; 87086; 87637; 99284